=== PATIENT | male | born 1965 | race African-American/Black ===

== ENCOUNTER 2017-10-14 15:36 | Emergency (ER) | payer MEDICAID, OTHER ==
[~2017-10-14] VITALS: Ht 193 cm; Wt 95.3 kg
[2017-10-14] MEDS ORDERED: GLIPIZIDE5 MG ORAL (15:49)
[2017-10-14] MEDS ORDERED: blood thinner (15:49)
[2017-10-14] MEDS ORDERED: METOPROLOL TART25 MG ORAL (15:49)
[2017-10-14] MEDS ORDERED: METFORMIN HCL500 M1 ORAL (15:49)
[2017-10-14 15:54] VITALS: BP 172/95
--- NOTE | 2017-10-14 16:20 | Emergency Room Report ---
History of Present Illness General Chief Complaint: Skin Rash/Abscess Source: Patient Present Illness HPI 51-year-old male with diabetes presenting with right foot wound. Patient states that he had a callus that was there, he removed it because it was painful , and since then has had purulent drainage from the site. States that he is on glipizide and metformin for his diabetes only. Denies any fever chills Allergies: Coded Allergies: No Known Allergies (Unverified , 10/14/17) Patient History Past Medical History: see triage record Past Surgical History: none Pertinent Family History: none Reviewed Nursing Documentation: PMH: Agreed, PSxH: Agreed Nursing Documentation-PMH Past Medical History: No History, Except For Hx Hypertension: Yes Hx Diabetes: Yes Review of Systems All Other Systems: negative except mentioned in HPI Physical Exam Vital Signs Date Time Temp Pulse Resp B/P (MAP) Pulse Ox O2 Delivery O2 Flow Rate FiO2 10/14/17 15:44 98.2 88 18 172/95 98 Room Air 98.2 Sp02 EP Interpretation: reviewed, normal General Appearance: alert, GCS 15, non-toxic, mild distress Head: normocephalic, atraumatic Eyes: bilateral eye normal inspection, bilateral eye PERRL, bilateral eye EOMI ENT: normal ENT inspection, normal pharynx, normal voice, moist mucus membranes Neck: normal inspection, full range of motion, supple Respiratory: normal inspection, lungs clear, normal breath sounds, no respiratory distress, no retraction, no wheezing, speaking full sentences, chest symmetrical Cardiovascular #1: normal inspection, regular rate, rhythm, no edema, normal capillary refill Cardiovascular #2: 2+ radial (R), 2+ radial (L) Gastrointestinal: normal inspection, non tender, soft, non-distended, no guarding Genitourinary: no CVA tenderness Musculoskeletal: other - Sole of foot with thick callus, also with ulceration noted, draining yellowish fluid Neurologic: normal inspection, alert, oriented x3, responsive, motor strength/ tone normal, sensory intact, normal gait, speech normal Psychiatric: normal inspection, judgement/insight normal, memory normal Skin: normal inspection, normal color, no rash, warm/dry, well hydrated, normal turgor Medical Decision Making Diagnostic Impression: Primary Impression: Diabetic foot ulcer ER Course 51-year-old male with right foot wound DDX: Diabetic ulcer, infected, versus osteomyelitis No crepitus / pain out of proportion / rapid spreading for concern for nec fasc Plan: Labs and Antibiotics ER course: Patient received antibiotics. Remains nontoxic appearing. There has been no rapid spread of redness/swelling. lactate decreased pt appears well Disposition: dc home with pmd fu in 2 days without fail for wound recheck Please note that this Emergency Department Report was dictated using [employer] intern technology software, occasionally this can lead to erroneous entry secondary to interpretation by the dictation equipment. EKG Diagnostic Results EP Interpretation: Yes Rate: normal Rhythm: NSR ST Segments: No acute changes ASA given to patient: No Rhythm Strip EP Interpretation: Yes Rate: 77 Rhythm: NSR, no PVCs, no ectopy Chest X-ray CXR: Ordered: Yes 1 view Indication: Chest pain EP interpretation: Yes Interpretation: No consolidation, no effusion, no PTX, no acute cardiopulmonary disease Impression: No acute disease Electronically signed by Onofre Rowell MD Laboratory Tests Test 10/14/17 16:05 10/14/17 16:10 10/14/17 18:45 Urine Color [place] Urine Appearance Slightly cloudy Urine pH 5 (4.5-8.0) Urine Specific [place] 1.025 (1.005-1.035) Urine Protein 3+ (NEGATIVE) H Urine Glucose (UA) 4+ (NEGATIVE) H Urine Ketones 2+ (NEGATIVE) H Urine Occult Blood 2+ (NEGATIVE) H Urine Nitrite Negative (NEGATIVE) Urine Bilirubin 1+ (NEGATIVE) H Urine Ictotest Negative Urine Urobilinogen 4 MG/DL (0.0-1.0) H Urine Leukocyte Esterase 1+ (NEGATIVE) H Urine RBC 2-4 /HPF (0 - 0) H Urine WBC 2-4 /HPF (0 - 0) Urine Squamous Epithelial Cells None /LPF (NONE/OCC) Urine Amorphous Sediment Few /LPF (NONE) H Urine Bacteria Moderate /HPF (NONE) H White Blood Count 5.7 K/UL (4.8-10.8) Red Blood Count 4.43 M/UL (4.70-6.10) L Hemoglobin 15.2 G/DL (14.2-18.0) Hematocrit 44.5 % (42.0-52.0) Mean Corpuscular Volume 100 FL (80-99) H Mean Corpuscular Hemoglobin 34.2 PG (27.0-31.0) H Mean Corpuscular Hemoglobin Concent 34.1 G/DL (32.0-36.0) Red Cell Distribution Width 14.5 % (11.6-14.8) Platelet Count 232 K/UL (150-450) Mean Platelet Volume 7.9 FL (6.5-10.1) Neutrophils (%) (Auto) 56.9 % (45.0-75.0) Lymphocytes (%) (Auto) 28.8 % (20.0-45.0) Monocytes (%) (Auto) 9.8 % (1.0-10.0) Eosinophils (%) (Auto) 3.0 % (0.0-3.0) Basophils (%) (Auto) 1.5 % (0.0-2.0) Sodium Level 140 MMOL/L (136-145) Potassium Level 4.4 MMOL/L (3.5-5.1) Chloride Level 101 MMOL/L (98-107) Carbon Dioxide Level 27 MMOL/L (21-32) Anion Gap 12 mmol/L (5-15) Blood Urea Nitrogen 8 mg/dL (7-18) Creatinine 1.0 MG/DL (0.55-1.30) Estimate Glomerular Filtration Rate > 60 mL/min (>60) Glucose Level 277 MG/DL (74-106) H Lactic Acid Level 3.40 mmol/L (0.66-2.22) H 1.40 mmol/L (0.66-2.22) Calcium Level 9.7 MG/DL (8.5-10.1) Total Bilirubin 0.9 MG/DL (0.2-1.0) Aspartate Amino Transferase (AST) 30 U/L (15-37) Alanine Aminotransferase (ALT) 21 U/L (12-78) Alkaline Phosphatase 93 U/L (46-116) Pro-B-Type Natriuretic Peptide 88 pg/mL (0-125) Total Protein 7.8 G/DL (6.4-8.2) Albumin 3.6 G/DL (3.4-5.0) Globulin 4.2 g/dL Albumin/Globulin Ratio 0.9 (1.0-2.7) L Acetone Level Negative (NEGATIVE) Last Vital Signs Date Time Temp Pulse Resp B/P (MAP) Pulse Ox O2 Delivery O2 Flow Rate FiO2 10/14/17 15:44 98.2 88 18 172/95 98 Room Air 98.2 Disposition: HOME, SELF-CARE Condition: Improved Scripts Doxycycline Monohydrate* (DOXYCYCLINE MONOHYDRATE*) 100 Mg Capsule 100 MG ORAL Q12H for 7 Days, #14 CAP 0 Refills Prov: Onofre Rowell M.D. 10/14/17 Cephalexin* (KEFLEX*) 500 Mg Capsule 500 MG ORAL Q6H, #28 CAP 0 Refills Prov: Onofre Rowell M.D. 10/14/17 Onofre Rowell M.D. Oct 14, 2017 16:20
[2017-10-14 16:36] LABS: APPEARANCE,URINE SLIGHTLY CLOUDY; BILIRUBIN, URINE 1+ (NEGATIVE); GLUCOSE, URINE (UA) 4+ (NEGATIVE); KETONES,URINE 2+ (NEGATIVE); LEUKOCYTE ESTERASE ,URINE 1+ (NEGATIVE); NITRITE,URINE NEGATIVE (NEGATIVE); PH,URINE 5 (4.5-8.0); PROTEIN,URINE 3+ (NEGATIVE); UROBILINOGEN,URINE 4 MG/DL (0.0-1.0)
[2017-10-14 16:37] LABS: COLOR,URINE AMBER
[2017-10-14] MEDS: cefTRIAXone 1 GM in NS 55 ML IVPB ONE (16:37)
[2017-10-14 16:44] LABS: BASOPHILS % (AUTO) 1.5 % (0.0-2.0); HEMATOCRIT 44.5 % (42.0-52.0); HEMOGLOBIN 15.2 G/DL (14.2-18.0); LYMPHOCYTES % (AUTO) 28.8 % (20.0-45.0); MEAN CORPUSCULAR VOLUME 100 FL (80-99); MONOCYTES % (AUTO) 9.8 % (1.0-10.0); NEUTROPHILS % (AUTO) 56.9 % (45.0-75.0); PLATELET COUNT 232 K/UL (150-450); RED BLOOD COUNT 4.43 M/UL (4.70-6.10); RED CELL DISTRIBUTION WIDTH 14.5 % (11.6-14.8); WHITE BLOOD COUNT 5.7 K/UL (4.8-10.8)
[2017-10-14 16:51] LABS: ANION GAP 12 mmol/L (5-15); BLOOD UREA NITROGEN 8 mg/dL (7-18); CALCIUM 9.7 MG/DL (8.5-10.1); CARBON DIOXIDE 27 MMOL/L (21-32); CHLORIDE 101 MMOL/L (98-107); POTASSIUM 4.4 MMOL/L (3.5-5.1); SODIUM 140 MMOL/L (136-145)
[2017-10-14 17:03] LABS: ALANINE AMINOTRANSFERASE 21 U/L (12-78); ALBUMIN 3.6 G/DL (3.4-5.0); ALBUMIN/GLOBULIN RATIO 0.9 (1.0-2.7); ALKALINE PHOSPHATASE 93 U/L (46-116); ASPARTATE AMINO TRANSFERASE 30 U/L (15-37); BILIRUBIN,TOTAL 0.9 MG/DL (0.2-1.0)
--- NOTE | 2017-10-14 17:04 | Diagnostic Imaging Report ---
Indication: Reason For Exam: PAIN Technique: One view of the chest Comparison: none Findings: Lungs and pleural spaces are clear. Heart size is normal Impression: No acute process
[2017-10-14] MEDS ORDERED: Doxycycline 100mg Inj IV ONE (17:22)
[2017-10-14] MEDS: Doxycycline Hyclate 100 MG in D5W 110 ML IVPB SCH (17:26)
[2017-10-14] MEDS ORDERED: KEFLEX500 MG ORAL (17:37)
[2017-10-14] MEDS ORDERED: DOXYCYCLINE MO100 MG ORAL (17:37)
[2017-10-14 18:53] VITALS: BP 173/98
[2017-10-14 20:05] VITALS: BP 167/92
[2017-10-14 20:08] VITALS: BP 167/92
--- NOTE | 2017-10-15 10:44 | Diagnostic Imaging Report ---
Indications: Plantar surface wound, diabetic Technique: 3 views of the foot Comparison: None Findings: No acute fractures. No dislocations. Joint spaces are preserved. No radiopaque foreign body. Normal mineralization. Air is seen within the superficial soft tissues plantar to the first metatarsophalangeal joint, only appreciable on the lateral view. No definite underlying bony destruction, osteolytic process, or abnormal periosteal reaction. There is hammertoe deformity of the second through fifth digits and mild metatarsus adductus. There are vascular calcifications Impression: No acute bony trauma Evidence of plantar soft tissue ulcer. No plain radiographic evidence of osteomyelitis. Note, however, limited sensitivity plain radiographs for such. If there is high clinical suspicion, further evaluation with bone scan or MRI should be considered
--- NOTE | 2017-10-19 18:54 | Cardiology Report ---
APPROVED REPORT EKG Measurement Heart [id number] Normal sinus rhythm Septal infarct, age undetermined Abnormal ECG
== END 2017-10-14 20:08 | disposition home or self-care (01) ==
LOC: EMR 17:47
DX: E11.621 Type 2 diabetes mellitus with foot ulcer (principal); L97.519 Non-pressure chronic ulcer of other part of right foot with unspecified severity; I10 Essential (primary) hypertension
CPT/HCPCS: 36415; 71045; 73630; 80053; 81003; 82009; 83605; 83880; 85025; 87040; 87086; 93005; 96361; 96374; 99284; J0696; J3490

== ENCOUNTER 2017-11-20 16:11 | Inpatient (IN) | payer OTHER ==
[~2017-11-20] VITALS: Ht 193 cm; Wt 84.4 kg
[~2017-11-20 16:11] MED LIST: DOXYCYCLINE MO100 MG ORAL; GLIPIZIDE5 MG ORAL; KEFLEX500 MG ORAL; METFORMIN HCL500 M1 ORAL; METOPROLOL TART25 MG ORAL; blood thinner
[2017-11-20] MEDS ORDERED: Vancomycin 1 GM in D5W 275 ML IVPB ONE (16:45)
[2017-11-20] MEDS ORDERED: Piperacillin/Tazobactam 3.375 GM in NS 110 ML IVPB ONE (16:45)
--- NOTE | 2017-11-20 16:54 | Emergency Room Report ---
History of Present Illness General Chief Complaint: Wound Recheck/Suture Removal Source: Patient Present Illness HPI Patient presents emergency department today complaining of right foot pain and discharge. Patient states that he has a history of diabetes and chronic right foot ulcer. He has been treated multiple times. In the past has healed. But now it burst open again and appears to be draining foul-smelling fluid. He denies any fever chest pain shortness of breath. No trauma was noted. Symptoms noted to be severe.No other modifying factors. No other associated signs and symptoms. No other complaints were noted. Allergies: Coded Allergies: No Known Allergies (Unverified , 10/14/17) Patient History Past Medical History: DM, HTN Past Surgical History: none Pertinent Family History: none Social History: Denies: smoking, alcohol use, drug use Reviewed Nursing Documentation: PMH: Agreed; PSxH: Agreed Nursing Documentation-PMH Hx Hypertension: Yes Hx Diabetes: Yes Review of Systems All Other Systems: negative except mentioned in HPI Physical Exam Vital Signs Date Time Temp Pulse Resp B/P (MAP) Pulse Ox O2 Delivery O2 Flow Rate FiO2 11/20/17 16:22 98.0 82 16 137/81 100 Room Air 98.1 Sp02 EP Interpretation: reviewed, normal General Appearance: normal inspection, well appearing, no apparent distress, alert Head: atraumatic Eyes: bilateral eye normal inspection ENT: normal ENT inspection, hearing grossly normal, normal voice Neck: normal inspection, full range of motion, supple, no bony tend Respiratory: normal inspection, lungs clear, normal breath sounds, no respiratory distress, no retraction, no wheezing Cardiovascular #1: regular rate, rhythm, no edema Gastrointestinal: normal inspection, normal bowel sounds, non tender, soft, no guarding, no hernia Genitourinary: no CVA tenderness Musculoskeletal: normal range of motion, inflammation - Right foot, at the sole with discharge Neurologic: normal inspection, alert, responsive, speech normal Psychiatric: normal inspection, judgement/insight normal, mood/affect normal Skin: no rash, other - Right foot sole cellulitis and discharge Medical Decision Making Diagnostic Impression: Primary Impression: Diabetic foot ulcer Qualified Codes: E11.621 - Type 2 diabetes mellitus with foot ulcer; L97.413 - Non-pressure chronic ulcer of right heel and midfoot with necrosis of muscle Additional Impressions: Cellulitis Qualified Codes: L03.115 - Cellulitis of right lower limb Osteomyelitis Qualified Codes: M86.171 - Other acute osteomyelitis, right ankle and foot Abscess ER Course Patient presents emergency department today complaining of right foot pain. Differential considerations include abscess, cellulitis, osteomyelitis, cellulitis just to name a few.Given the severity of the patient's presentation I felt this is a highly complex patient. This patient required extensive workup. Patient's exam is concerning for osteomyelitis cellulitis a minimal nursing abscess. The patient required admission for IV antibiotics. This case was discussed with admitting physician. Patient will be admitted to [facility] for further treatment. Case discussed with Dr. Diego Dave was on panel admission. Labs Test 11/20/17 17:05 White Blood Count 6.8 K/UL (4.8-10.8) Red Blood Count 4.58 M/UL (4.70-6.10) Hemoglobin 15.7 G/DL (14.2-18.0) Hematocrit 45.6 % (42.0-52.0) Mean Corpuscular Volume 100 FL (80-99) Mean Corpuscular Hemoglobin 34.3 PG (27.0-31.0) Mean Corpuscular Hemoglobin Concent 34.5 G/DL (32.0-36.0) Red Cell Distribution Width 12.8 % (11.6-14.8) Platelet Count 253 K/UL (150-450) Mean Platelet Volume 8.4 FL (6.5-10.1) Neutrophils (%) (Auto) 49.1 % (45.0-75.0) Lymphocytes (%) (Auto) 36.0 % (20.0-45.0) Monocytes (%) (Auto) 8.9 % (1.0-10.0) Eosinophils (%) (Auto) 4.2 % (0.0-3.0) Basophils (%) (Auto) 1.8 % (0.0-2.0) Erythrocyte Sedimentation Rate 21 MM/HR (0-20) Prothrombin Time 9.4 SEC (9.30-11.50) Prothromb Time International Ratio 0.9 (0.9-1.1) Activated Partial Thromboplast Time 26 SEC (23-33) Sodium Level 134 MMOL/L (136-145) Potassium Level 4.9 MMOL/L (3.5-5.1) Chloride Level 97 MMOL/L (98-107) Carbon Dioxide Level 26 MMOL/L (21-32) Anion Gap 11 mmol/L (5-15) Blood Urea Nitrogen 17 mg/dL (7-18) Creatinine 1.5 MG/DL (0.55-1.30) Estimat Glomerular Filtration Rate 59.1 mL/min (>60) Glucose Level 459 MG/DL (74-106) Calcium Level 10.3 MG/DL (8.5-10.1) Total Bilirubin 0.7 MG/DL (0.2-1.0) Aspartate Amino Transf (AST/SGOT) 47 U/L (15-37) Alanine Aminotransferase (ALT/SGPT) 41 U/L (12-78) Alkaline Phosphatase 90 U/L (46-116) Total Protein 8.5 G/DL (6.4-8.2) Albumin 3.8 G/DL (3.4-5.0) Globulin 4.7 g/dL Albumin/Globulin Ratio 0.8 (1.0-2.7) Other X-Ray Diagnostic Results Other X-Ray Diagnostic Results : X-Ray ordered: Right foot x-ray # of Views/Limited Vs Complete: 3 View Indication: Pain EP Interpretation: Yes Interpretation: no dislocation, no soft tissue swelling, no fractures Impression: No acute disease Electronically Signed by: Dr. Gwyn Goldsmith M.D. Last Vital Signs Date Time Temp Pulse Resp B/P (MAP) Pulse Ox O2 Delivery O2 Flow Rate FiO2 11/20/17 16:22 98.0 82 16 137/81 100 Room Air 98.1 Status: improved Disposition: ADMITTED INPATIENT Condition: Serious GWYN GOLDSMITH M.D. Nov 20, 2017 16:54
[2017-11-20 17:26] LABS: BASOPHILS % (AUTO) 1.8 % (0.0-2.0); EOSINOPHILS % (AUTO) 4.2 % (0.0-3.0); HEMATOCRIT 45.6 % (42.0-52.0); HEMOGLOBIN 15.7 G/DL (14.2-18.0); MEAN CORPUSCULAR VOLUME 100 FL (80-99); MONOCYTES % (AUTO) 8.9 % (1.0-10.0); NEUTROPHILS % (AUTO) 49.1 % (45.0-75.0); PLATELET COUNT 253 K/UL (150-450); RED BLOOD COUNT 4.58 M/UL (4.70-6.10); RED CELL DISTRIBUTION WIDTH 12.8 % (11.6-14.8); WHITE BLOOD COUNT 6.8 K/UL (4.8-10.8)
[2017-11-20 17:35] LABS: ANION GAP 11 mmol/L (5-15); BLOOD UREA NITROGEN 17 mg/dL (7-18); CALCIUM 10.3 MG/DL (8.5-10.1); CARBON DIOXIDE 26 MMOL/L (21-32); CHLORIDE 97 MMOL/L (98-107); CREATININE 1.5 MG/DL (0.55-1.30); POTASSIUM 4.9 MMOL/L (3.5-5.1); SODIUM 134 MMOL/L (136-145)
[2017-11-20 17:40] LABS: ALANINE AMINOTRANSFERASE 41 U/L (12-78); ALBUMIN 3.8 G/DL (3.4-5.0); ALBUMIN/GLOBULIN RATIO 0.8 (1.0-2.7); ALKALINE PHOSPHATASE 90 U/L (46-116); ASPARTATE AMINO TRANSFERASE 47 U/L (15-37); BILIRUBIN,TOTAL 0.7 MG/DL (0.2-1.0); INR 0.9 (0.9-1.1)
[2017-11-20] MEDS ORDERED: METOPROLOL TART50 MG ORAL (18:05)
[2017-11-20] MEDS ORDERED: GLUCOTROL10 MG ORAL (18:05)
[2017-11-20] MEDS ORDERED: IBUPROFEN600 MG ORAL (18:07)
[2017-11-20 19:01] VITALS: BP 138/83
[2017-11-20 20:10] VITALS: BP 141/85
[2017-11-21] VITALS: BP 147/90
[2017-11-21 04:00] VITALS: BP 136/81
[2017-11-21] MEDS: metFORMIN 500mg tab ORAL SCH ×2 (06:19→16:42)
[2017-11-21] MEDS: NovoLOG Insulin Flexpen SUBQ SCH ×6 (06:20→20:41)
[2017-11-21] MEDS ORDERED: GlipiZIDE 10mg tab ORAL SCH (06:30)
[2017-11-21 07:14] LABS: ANION GAP 10 mmol/L (5-15); BLOOD UREA NITROGEN 15 mg/dL (7-18); CALCIUM 9.7 MG/DL (8.5-10.1); CARBON DIOXIDE 26 MMOL/L (21-32); CHLORIDE 98 MMOL/L (98-107); CREATININE 1.3 MG/DL (0.55-1.30); POTASSIUM 3.9 MMOL/L (3.5-5.1); SODIUM 134 MMOL/L (136-145)
[2017-11-21 07:24] LABS: BASOPHILS % (AUTO) 1.8 % (0.0-2.0); HEMATOCRIT 39.4 % (42.0-52.0); HEMOGLOBIN 14.3 G/DL (14.2-18.0); LYMPHOCYTES % (AUTO) 38.9 % (20.0-45.0); MEAN CORPUSCULAR VOLUME 98 FL (80-99); MONOCYTES % (AUTO) 10.4 % (1.0-10.0); NEUTROPHILS % (AUTO) 43.9 % (45.0-75.0); PLATELET COUNT 242 K/UL (150-450); RED BLOOD COUNT 4.01 M/UL (4.70-6.10); RED CELL DISTRIBUTION WIDTH 12.5 % (11.6-14.8); WHITE BLOOD COUNT 5.3 K/UL (4.8-10.8)
[2017-11-21 08:00] VITALS: BP 135/79
--- NOTE | 2017-11-21 08:40 | Consultation ---
Consult Note Assessment/Plan A/ 1) Abscess right foot 2) Cellulitis right foot 3) DM with neuropathy P/ 1) Patient was advised of his condition and possible bone infection. 2) MRI ordered to evaluate for osteo 3) Wound care ordered- pack wound daily 4) Cont abx per ID 5) Wound cultures pending 6) Will follow Thank you Norris Sampson DPM Nov 21, 2017 08:40
--- NOTE | 2017-11-21 09:30 | Diagnostic Imaging Report ---
Indication: Right foot pain Technique: Right foot 3 views Comparison: None Findings: There is no radiographically evident fracture or dislocation. Forefoot plantar ulcer and adjacent gas are noted. Vascular calcifications are seen. Impression: Plantar forefoot ulcer. No plain film evidence of osteomyelitis. MRI may be obtained for more sensitive evaluation.
[2017-11-21] MEDS: Metoprolol Tartrate 50mg tab ORAL SCH ×2 (09:35→19:28)
[2017-11-21] MEDS: Heparin 5000 units/ml inj SUBQ SCH ×2 (09:36→20:42)
[2017-11-21] MEDS ORDERED: Piperacillin/Tazobactam 3.375 GM in D5W 110 ML IVPB SCH (10:00)
--- NOTE | 2017-11-21 10:21 | General Progress Note ---
Assessment/Plan Problem List: (1) Diabetes mellitus out of control ICD Codes: E11.65 - Type 2 diabetes mellitus with hyperglycemia SNOMED: 57903426, 313275817 (2) Osteomyelitis ICD Codes: M86.9 - Osteomyelitis, unspecified SNOMED: 88643042 Qualifiers: Qualified Codes: M86.171 - Other acute osteomyelitis, right ankle and foot (3) Cellulitis ICD Codes: L03.90 - Cellulitis, unspecified SNOMED: 722594508 Qualifiers: Qualified Codes: L03.115 - Cellulitis of right lower limb (4) Diabetic foot ulcer ICD Codes: E11.621 - Type 2 diabetes mellitus with foot ulcer; L97.509 - Non- pressure chronic ulcer of other part of unspecified foot with unspecified severity SNOMED: 610526617, [id number] Qualifiers: Qualified Codes: E11.621 - Type 2 diabetes mellitus with foot ulcer; L97.413 - Non-pressure chronic ulcer of right heel and midfoot with necrosis of muscle Assessment/Plan continue Metformin DC Glipizide add Levemir 24 units daily add Novolog 8 units ac tid continue NISS Subjective Allergies: Coded Allergies: No Known Allergies (Unverified , 10/14/17) All Systems: reviewed and negative except above Subjective Patient presents emergency department today complaining of right foot pain and discharge. Patient states that he has a history of diabetes and chronic right foot ulcer. He has been treated multiple times. In the past has healed. But now it burst open again and appears to be draining foul-smelling fluid. He denies any fever chest pain shortness of breath. No trauma was noted. Symptoms noted to be severe.No other modifying factors. No other associated signs and symptoms. No other complaints were noted Objective Last 24 Hour Vital Signs Date Time Temp Pulse Resp B/P (MAP) Pulse Ox O2 Delivery O2 Flow Rate FiO2 11/21/17 09:35 89 135/79 11/21/17 08:00 98.3 89 19 135/79 97 Room Air 98.3 11/21/17 04:00 98.3 91 21 136/81 100 98.3 11/21/17 00:00 98.2 82 21 147/90 100 98.2 11/20/17 20:10 98.1 79 18 141/85 100 Room Air 98.1 11/20/17 20:05 98.0 74 14 138/83 100 Room Air 98.1 11/20/17 19:01 74 14 138/83 100 Room Air 11/20/17 16:22 98.0 82 16 137/81 100 Room Air 98.1 Intake and Output 11/20/17 11/21/17 19:00 07:00 Intake Total 480 ml Output Total 350 ml Balance 130 ml Intake IV Total 480 ml Output Urine Total 350 ml # Voids 2 Laboratory Tests 11/20/17 17:05: White Blood Count 6.8, Red Blood Count 4.58L, Hemoglobin 15.7, Hematocrit 45.6, Mean Corpuscular Volume 100H, Mean Corpuscular Hemoglobin 34.3H, Mean Corpuscular Hemoglobin Concent 34.5, Red Cell Distribution Width 12.8, Platelet Count 253, Mean Platelet Volume 8.4, Neutrophils (%) (Auto) 49.1, Lymphocytes (% ) (Auto) 36.0, Monocytes (%) (Auto) 8.9, Eosinophils (%) (Auto) 4.2H, Basophils (%) (Auto) 1.8, Erythrocyte Sedimentation Rate 21H, Prothrombin Time 9.4, Prothromb Time International Ratio 0.9, Activated Partial Thromboplast Time 26, Sodium Level 134L, Potassium Level 4.9, Chloride Level 97L, Carbon Dioxide Level 26, Anion Gap 11, Blood Urea Nitrogen 17, Creatinine 1.5H, Estimat Glomerular Filtration Rate 59.1, Glucose Level 459H, Calcium Level 10.3H, Total Bilirubin 0.7, Aspartate Amino Transf (AST/SGOT) 47H, Alanine Aminotransferase ( ALT/SGPT) 41, Alkaline Phosphatase 90, Total Protein 8.5H, Albumin 3.8, Globulin 4.7, Albumin/Globulin Ratio 0.8L 11/21/17 05:25: White Blood Count 5.3, Red Blood Count 4.01L, Hemoglobin 14.3, Hematocrit 39.4L , Mean Corpuscular Volume 98, Mean Corpuscular Hemoglobin 35.7H, Mean Corpuscular Hemoglobin Concent 36.3H, Red Cell Distribution Width 12.5, Platelet Count 242, Mean Platelet Volume 9.3, Neutrophils (%) (Auto) 43.9L, Lymphocytes (%) (Auto) 38.9, Monocytes (%) (Auto) 10.4H, Eosinophils (%) (Auto) 5.0H, Basophils (%) (Auto) 1.8, Sodium Level 134L, Potassium Level 3.9, Chloride Level 98, Carbon Dioxide Level 26, Anion Gap 10, Blood Urea Nitrogen 15 , Creatinine 1.3, Estimat Glomerular Filtration Rate > 60, Glucose Level 356#H, Calcium Level 9.7 Height (Feet): 6 Height (Inches): 4.00 Weight (Pounds): 186 General Appearance: no apparent distress Neck: non-tender Cardiovascular: normal rate Respiratory/Chest: lungs clear Abdomen: normal bowel sounds Objective Item Value Date Time Bedside Blood Glucose 338 mg/dl H 11/21/17 0620 Current Medications Medications (Trade) Dose Ordered Sig/Fiorella Route PRN Reason Start Time Stop Time Status Last Admin Dose Admin Dextrose (Dextrose 50%) 25 ml STAT PRN IV Hypoglycemia 11/20/17 22:15 12/20/17 22:14 Dextrose (Dextrose 50%) 50 ml STAT PRN IV Hypoglycemia 11/20/17 22:15 12/20/17 22:14 Glipizide (Glucotrol) 10 mg BIAC ORAL 11/21/17 06:30 12/21/17 06:29 11/21/17 06:19 Heparin Sodium (Porcine) (Heparin 5000 units/ml) 5,000 units EVERY 12 HOURS SUBQ 11/21/17 09:00 12/21/17 08:59 11/21/17 09:36 Ibuprofen (Advil) 800 mg BID PRN ORAL For Pain 11/20/17 22:15 12/20/17 22:14 11/20/17 22:47 Insulin Aspart (NovoLOG) BEFORE MEALS AND HS SUBQ 11/21/17 06:30 12/21/17 06:29 11/21/17 06:20 Metformin HCl (Glucophage) 500 mg BIAC ORAL 11/21/17 06:30 12/21/17 06:29 11/21/17 06:19 Metoprolol Tartrate (Lopressor) 50 mg BID ORAL 11/21/17 09:00 12/21/17 08:59 11/21/17 09:35 Morphine Sulfate (Morphine Sulfate) 2 mg Q4H PRN IVP pain 11/20/17 22:30 11/27/17 22:29 Piperacillin Sod/ Tazobactam Sod 3.375 gm/Dextrose 110 ml @ 27.5 mls/hr EVERY 8 HOURS IVPB 11/21/17 14:00 11/28/17 13:59 Sodium Chloride 1,000 ml @ 60 mls/hr [id number] IV 11/20/17 22:15 12/20/17 22:14 11/20/17 22:37 Vancomycin HCl (Vanco rx to dose) 1 ea DAILY PRN MISC Per rx protocol 11/21/17 10:00 12/21/17 09:59 Vancomycin HCl/ Dextrose 250 ml @ 166.667 mls/hr Q12H IVPB 11/21/17 11:00 11/26/17 10:59 MIS MUNOZ Nov 21, 2017 10:21
[2017-11-21] MEDS: Vancomycin 1250mg/D5W 250ml IVPB SCH ×2 (11:12→22:44)
[2017-11-21] MEDS: Levemir Flexpen SUBQ SCH (11:14)
[2017-11-21 12:00] VITALS: BP 135/81
[2017-11-21] MEDS: Piperacillin/Tazobactam 3.375 GM in D5W 110 ML IVPB SCH ×2 (13:48→20:43)
--- NOTE | 2017-11-21 14:30 | History and Physical Report ---
DATE OF ADMISSION: 11/20/2017 APPROXIMATE TIME SEEN: At 8 a.m. CONSULTANTS: 1. Oli Raymond M.D. 2. Norris Anguiano D.P.M. 3. Tadeo Clement M.D. CHIEF COMPLAINT: Diabetic foot ulcer. BRIEF HISTORY: This is a 52-year-old male, who lives at home with history of diabetes. He apparently a month ago developed right foot ulcer, was seen by doctor, and the wound got worse. The patient came to [facility] last night, diagnosed of diabetic foot ulcer, and admitted to medical floor for further treatment. Currently, calm in bed, no complaint, no chest pain. No nausea, vomiting, or diarrhea. PAST MEDICAL HISTORY: Includes diabetes. PAST SURGICAL HISTORY: Possible left leg surgery. ALLERGIES: Denies. MEDICATIONS: Include heparin, Lopressor, NovoLog, Glucotrol, Glucophage, morphine, vancomycin, Zosyn. SOCIAL HISTORY: Positive smoking. Positive alcohol. No intravenous drug abuse. FAMILY HISTORY: Noncontributory. PHYSICAL EXAMINATION: GENERAL: Calm in bed, oriented x3, in no acute distress. VITAL SIGNS: Temperature 98, pulse 91, respiratory rate 21, blood pressure 136/81. CARDIOVASCULAR: No murmur. LUNGS: Distant and clear. ABDOMEN: Bowel sounds positive. Nontender, nondistended. EXTREMITIES: Show no cyanosis, clubbing, or edema. Right foot slightly disheveled, but gauze dressing is clean and dry. NEUROLOGIC: The patient moves all extremities, slightly weak. LABORATORY AND DIAGNOSTIC DATA: Labs at this time show CBC is normal. BMP shows sodium 134, glucose 356, otherwise normal. INR 0.9, PTT 26. ASSESSMENT: 1. Diabetic foot ulcer on the right. 2. History of diabetes. PLAN: 1. Continue pre-admit medications. 2. Wound care. 3. Antibiotics per Infectious Disease. 4. Blood sugar control. 5. Pain control. 6. Resume home medications. 7. OT, PT, dietary evaluation. 8. CBC and BMP in the morning. Diego Dave D.O. DR: Genesis JOB#: [id number] CC:
[2017-11-21 16:00] VITALS: BP 142/76
[2017-11-21] MEDS: Morphine Sulfate 4mg/ml Inj IVP PRN (16:44)
--- NOTE | 2017-11-21 18:30 | Consultation ---
DATE OF CONSULTATION: 11/21/2017 REQUESTING PHYSICIAN: Diego Dave D.O. CONSULTING PHYSICIAN: Norris Anguiano D.P.M. REASON FOR CONSULTATION: Cellulitis and abscess right foot in the presence of diabetes mellitus. HISTORY OF PRESENT ILLNESS: The patient is a 52-year-old male, who was admitted to [facility] on 11/20/2017 for above-noted diagnoses. The patient states that he has had a history of wound on the right foot for approximately a month. He notes that it was improving, but then over the past couple of days, has been getting worse. He currently denies any pain, fever, chills, nausea, or vomiting. 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 PAST MEDICAL HISTORY: Significant for diabetes mellitus and hypertension. MEDICATIONS: Per SEP. ALLERGIES: He has no known drug allergies. SOCIAL HISTORY: Noncontributory. FAMILY HISTORY: Noncontributory. REVIEW OF SYSTEMS: HEENT: The patient denies any headaches, blurred vision, or ringing in the ears. CARDIORESPIRATORY: The patient denies any chest pain or shortness of breath. GENITOURINARY: The patient denies any urgency, frequency, burning upon urination, or hematuria. GASTROINTESTINAL: The patient denies any constipation, diarrhea, or blood in stool. PHYSICAL EXAMINATION: VITAL SIGNS: Temperature is 98.3 degrees, pulse is 91, respiration rate is 21, blood pressure is 136/81, and saturating 100% on room air. EXTREMITIES: Lower extremity physical exam, vascular, palpable pedal pulses noted bilaterally. Feet are equally warm. There is 1+ pitting edema noted on the right lower extremity. DERMATOLOGICAL: Left foot is unremarkable. Skin is intact. Right foot, there is a full-thickness ulceration noted on the plantar aspect of the right foot approximately in the second and third metatarsal head region. There is active drainage noted from the site. There is no malodor. Wound does not probe to bone. It does not appear to extend dorsally. NEUROLOGICAL: Protective threshold is absent. MUSCULOSKELETAL: He has got 4/5 muscle strength noted in anterolateral and posterior muscle groups of bilateral lower extremities. The patient is ambulatory. LABORATORY DATA: White blood cell count is 5.3, hemoglobin and hematocrit is 14.3 and 39.4, and platelet count is 242,000. Sedimentation rate is 21. Glucose is 356. Albumin is 3.8. BUN is 15, creatinine is 1.3. Potassium is 3.9. INR is 0.9. No lower extremity imaging is noted on this admission. ASSESSMENT: 1. Abscess, right foot. 2. Cellulitis, right foot. 3. Diabetes with neuropathy. PLAN: 1. The patient was advised of this condition and possible wound infection. 2. MRI ordered to evaluate for osteomyelitis. 3. Wound care was ordered consisting of cleansing the wound with normal saline, packing with quarter-inch packing, and covering with dry dressing daily. 4. Continue antibiotics per Infectious Disease. 5. Wound cultures are pending. 6. We will follow this patient. Thank you for the courtesy of this consultation, Dr. Dave. Norris Anguiano D.P.M. DR: Montez JOB#: [id number] CC:
[2017-11-21 20:00] VITALS: BP 150/90
--- NOTE | 2017-11-21 21:54 | Consultation ---
Consult Note Assessment/Plan [id number] Tadeo Clement MD Nov 21, 2017 21:54
[2017-11-22] VITALS: BP 160/81
--- NOTE | 2017-11-22 00:15 | Consultation ---
DATE OF CONSULTATION: INFECTIOUS DISEASE CONSULTATION CONSULTING PHYSICIAN: Tadeo Clement M.D. REFERRING PHYSICIAN: Diego Dave D.O. REASON FOR CONSULTATION: Examination of the patient for right foot cellulitis, wound infection, rule out osteomyelitis. HISTORY OF PRESENT ILLNESS: The patient is a 52-year-old male with multiple medical problems, who was admitted to this medical center because of worsening of the right plantar wound. The patient is sick for a few days prior to admission. This wound developed about a month ago. The patient and his family followed with the podiatry and he was getting better, but now it starts to worsen. The patient gave history of purulent discharge. The patient has been seen by production painter. The patient's wound was cleaned and packed. MR has been ordered. An infectious disease consultation has been requested for further evaluation of the patient and antibiotic management. PAST MEDICAL HISTORY: 1. Hypertension. 2. Diabetes. 3. History of left leg DVT. ALLERGIES: No known drug allergies. SOCIAL HISTORY: Ex-smoker and ex-alcohol abuser. No history of IV drug abuse. FAMILY HISTORY: Not contributing. ALLERGIES: No known drug allergies. MEDICATIONS: The patient has IV Zosyn and vancomycin. PHYSICAL EXAMINATION: VITAL SIGNS: Temperature 97.4, pulse 86, respiratory rate 18, and blood pressure 150/90. HEENT: No pale conjunctivae. No icterus. NECK: No lymphadenopathy. CHEST: Clear. HEART: S1-S2. ABDOMEN: Soft. EXTREMITIES: The patient has a wound on the plantar aspect of the foot that has been packed. No significant tenderness at the time of my exam. NEUROLOGIC: Awake and alert. LABORATORY AND DIAGNOSTIC DATA: White blood cells 5, hemoglobin 14, platelet 242,000. UA unremarkable. BUN 15, creatinine 1.3. ALT, AST, and alkaline phosphatase are unremarkable. Wound culture is pending. MRI of the foot is pending. ASSESSMENT: 1. The patient is a 52-year-old male with multiple medical problems, who has right plantar surface wound/infection, rule out osteomyelitis. 2. Afebrile. 3. Normal white blood cells. 4. History of HIV and hepatitis screening negative 6 months ago (as per patient). PLAN: 1. We will continue the patient on IV vancomycin and Zosyn. 2. Monitor CBC. 3. Monitor BMP. 4. Monitor wound culture. 5. MRI of the right foot pending. 6. We will follow up with history recommendations. 7. Based on the patient's clinical course and labs, we will do further recommendation. Thank you, Dr. Diego Dave, for allowing me to participate in the care of this patient. I will follow the patient with you during this hospitalization. Tadeo Clement M.D. DR: AC JOB#: [id number] CC:
[2017-11-22 04:00] VITALS: BP 147/88
[2017-11-22] MEDS: metFORMIN 500mg tab ORAL SCH ×2 (06:24→17:11)
[2017-11-22] MEDS: NovoLOG Insulin Flexpen SUBQ SCH ×8 (06:26→20:48)
[2017-11-22] MEDS: Piperacillin/Tazobactam 3.375 GM in D5W 110 ML IVPB SCH ×3 (06:31→21:21)
[2017-11-22 08:00] VITALS: BP 156/80
[2017-11-22 08:39] LABS: BASOPHILS % (AUTO) 1.7 % (0.0-2.0); EOSINOPHILS % (AUTO) 4.7 % (0.0-3.0); HEMATOCRIT 40.5 % (42.0-52.0); HEMOGLOBIN 14.8 G/DL (14.2-18.0); LYMPHOCYTES % (AUTO) 41.6 % (20.0-45.0); MEAN CORPUSCULAR VOLUME 99 FL (80-99); MONOCYTES % (AUTO) 10.5 % (1.0-10.0); NEUTROPHILS % (AUTO) 41.4 % (45.0-75.0); PLATELET COUNT 250 K/UL (150-450); RED BLOOD COUNT 4.11 M/UL (4.70-6.10); RED CELL DISTRIBUTION WIDTH 12.4 % (11.6-14.8); WHITE BLOOD COUNT 5.1 K/UL (4.8-10.8)
[2017-11-22 09:33] LABS: ANION GAP 12 mmol/L (5-15); BLOOD UREA NITROGEN 12 mg/dL (7-18); CALCIUM 9.6 MG/DL (8.5-10.1); CARBON DIOXIDE 24 MMOL/L (21-32); CHLORIDE 99 MMOL/L (98-107); CREATININE 1.1 MG/DL (0.55-1.30); POTASSIUM 3.5 MMOL/L (3.5-5.1); SODIUM 135 MMOL/L (136-145)
[2017-11-22] MEDS: Metoprolol Tartrate 50mg tab ORAL SCH ×2 (09:51→18:02)
[2017-11-22] MEDS: Heparin 5000 units/ml inj SUBQ SCH ×2 (09:52→20:19)
[2017-11-22] MEDS: Levemir Flexpen SUBQ SCH (09:53)
[2017-11-22 12:00] VITALS: BP 136/73
[2017-11-22] MEDS: Vancomycin 1250mg/D5W 250ml IVPB SCH (12:00)
--- NOTE | 2017-11-22 12:28 | Diagnostic Imaging Report ---
Indication: Open wound ball of right foot Technique: Sagittal, coronal, and axial T 1 fast spin echo and fast spin echo STIR images of the right forefoot Comparison: There is a plate radiographs 11/20/2017 Findings: A marker denotes location of a soft tissue ulcer at the plantar aspect of the foot near the second metatarsophalangeal abnormal STIR and T1 signal are seen within the second middle phalanx. No other marrow signal abnormality demonstrated. There is considerable focal high T2 signal which is very superficial in the region and slightly lateral to the marker. Within this is an area of signal void. Significance of this is uncertain, could represent a discrete focus of gas. The focal signal abnormality measures approximately 3 cm in length, 2.6 cm AP, and 0.8 cm thick. There is also more generalized edema without discrete fluid collection of the subcutaneous fat, primarily in the dorsum of the forefoot, but also surrounding the bases of the phalanges and the deep compartment surrounding the metatarsals. Impression: Abnormal STIR and T1 signal within the second middle phalanx, suspicious for osteomyelitis Apparent focal fluid collection, very superficial, near the marker denoting a soft tissue ulcer. This is on the plantar surface near the second and third metatarsophalangeal joints, could represent a blister. This could also just represent fluid external to the patient. Is abnormality should be clinically apparent and correlation with clinical findings is recommended More generalized edema, as described, could represent cellulitis or be hemodynamic in nature
--- NOTE | 2017-11-22 12:33 | General Progress Note ---
Assessment/Plan Problem List: (1) Diabetic foot ulcer ICD Codes: E11.621 - Type 2 diabetes mellitus with foot ulcer; L97.509 - Non- pressure chronic ulcer of other part of unspecified foot with unspecified severity SNOMED: 034649743, [id number] Qualifiers: Qualified Codes: E11.621 - Type 2 diabetes mellitus with foot ulcer; L97.413 - Non-pressure chronic ulcer of right heel and midfoot with necrosis of muscle (2) Diabetes mellitus out of control ICD Codes: E11.65 - Type 2 diabetes mellitus with hyperglycemia SNOMED: 39650754, 185271682 Status: stable, progressing, tolerating diet Assessment/Plan bs pain control abx wound care cbc bmp am Subjective Constitutional: Reports: weakness Allergies: Coded Allergies: No Known Allergies (Unverified , 10/14/17) All Systems: reviewed and negative except above Subjective eating calm Objective Last 24 Hour Vital Signs Date Time Temp Pulse Resp B/P (MAP) Pulse Ox O2 Delivery O2 Flow Rate FiO2 11/22/17 12:00 97.7 74 21 136/73 98 Room Air 97.7 11/22/17 09:51 71 142/88 11/22/17 08:00 97.9 76 21 156/80 99 Room Air 97.9 11/22/17 04:00 98.0 75 21 147/88 99 98.0 11/22/17 00:00 98.6 64 21 160/81 100 98.6 11/21/17 20:00 97.4 75 21 150/90 100 97.4 11/21/17 19:28 73 134/83 11/21/17 16:00 98.0 66 19 142/76 96 Room Air 98.0 Intake and Output 11/21/17 11/22/17 19:00 07:00 Intake Total 1220.000 ml 803.334 ml Balance 1220.000 ml 803.334 ml Intake Oral 560 ml IV Total 660.000 ml 803.334 ml # Voids 5 2 Laboratory Tests 11/22/17 06:50: White Blood Count 5.1, Red Blood Count 4.11L, Hemoglobin 14.8, Hematocrit 40.5L , Mean Corpuscular Volume 99, Mean Corpuscular Hemoglobin 36.1H, Mean Corpuscular Hemoglobin Concent 36.5H, Red Cell Distribution Width 12.4, Platelet Count 250, Mean Platelet Volume 8.4, Neutrophils (%) (Auto) 41.4L, Lymphocytes (%) (Auto) 41.6, Monocytes (%) (Auto) 10.5H, Eosinophils (%) (Auto) 4.7H, Basophils (%) (Auto) 1.7, Sodium Level 135L, Potassium Level 3.5, Chloride Level 99, Carbon Dioxide Level 24, Anion Gap 12, Blood Urea Nitrogen 12 , Creatinine 1.1, Estimat Glomerular Filtration Rate > 60, Glucose Level 146#H, Calcium Level 9.6 Height (Feet): 6 Height (Inches): 4.00 Weight (Pounds): 186 General Appearance: alert EENT: normal ENT inspection Neck: normal alignment Cardiovascular: normal peripheral pulses, normal rate, regular rhythm Respiratory/Chest: chest wall non-tender, lungs clear, normal breath sounds Abdomen: normal bowel sounds, non tender, soft Extremities: normal inspection Edema: no edema noted Arm (L), no edema noted Arm (R), no edema noted Leg (L), no edema noted Leg (R), no edema noted Pedal (L), no edema noted Pedal (R), no edema noted Generalized Neurologic: responsive, motor weakness Skin: normal pigmentation, warm/dry Objective r foot dressing c&d DEBORAH GERONIMO Nov 22, 2017 12:33
--- NOTE | 2017-11-22 13:02 | Infectious Diseases Prog Note ---
Assessment/Plan Assessment/Plan ASSESSMENT: 1. The patient is a 52-year-old male with multiple medical problems, who has right plantar surface wound/infection- ?OM of R 2nd middle phalanx per MRI findings -MRI R foot: Abnormal STIR and T1 signal within the second middle phalanx, suspicious for osteomyelitis. Apparent focal fluid collection, very superficial , near the marker denoting a soft tissue ulcer. This is on the plantar surface near the second and third metatarsophalangeal joints, could represent a blister. This could also just represent fluid external to the patient. Is abnormality should be clinically apparent and correlation with clinical findings is recommended. More generalized edema, as described, could represent cellulitis or be hemodynamic in nature -wound cx p -ESR 21 2. Afebrile. 3. Normal white blood cells. 4. History of HIV and hepatitis screening negative 6 months ago (as per patient). -. Hypertension. -. Diabetes. -. History of left leg DVT. PLAN: 1. We will continue the patient on IV vancomycin and Zosyn #3 pending cultures 2. Monitor CBC. 3. Monitor BMP. 4. Monitor wound culture. 5. Podiatry f/u 6. wound care 7. Based on the patient's clinical course and labs, we will do further recommendation. Thank you, Dr. Diego Dave, for allowing me to participate in the care of this patient. I will follow the patient with you during this hospitalization. Subjective Allergies: Coded Allergies: No Known Allergies (Unverified , 10/14/17) Subjective afebrile no leukocytosis Objective Vital Signs Last 24 Hour Vital Signs Date Time Temp Pulse Resp B/P (MAP) Pulse Ox O2 Delivery O2 Flow Rate FiO2 11/22/17 12:00 97.7 74 21 136/73 98 Room Air 97.7 11/22/17 09:51 71 142/88 11/22/17 08:00 97.9 76 21 156/80 99 Room Air 97.9 11/22/17 04:00 98.0 75 21 147/88 99 98.0 11/22/17 00:00 98.6 64 21 160/81 100 98.6 11/21/17 20:00 97.4 75 21 150/90 100 97.4 11/21/17 19:28 73 134/83 11/21/17 16:00 98.0 66 19 142/76 96 Room Air 98.0 Height (Feet): 6 Height (Inches): 4.00 Weight (Pounds): 186 Objective HEENT: No pale conjunctivae. No icterus. NECK: No lymphadenopathy. CHEST: Clear. HEART: S1-S2. ABDOMEN: Soft. EXTREMITIES: The patient has a wound on the plantar aspect of the foot that has been packed. No significant tenderness at the time of my exam. NEUROLOGIC: Awake and alert. Microbiology Date/Time Source Procedure Growth Status 11/20/17 17:05 Drainage Fluid Gram Stain Pending Resulted 11/20/17 17:05 Drainage Fluid Wound Culture - Preliminary Resulted Laboratory Tests Test 11/22/17 06:50 White Blood Count 5.1 K/UL (4.8-10.8) Red Blood Count 4.11 M/UL (4.70-6.10) L Hemoglobin 14.8 G/DL (14.2-18.0) Hematocrit 40.5 % (42.0-52.0) L Mean Corpuscular Volume 99 FL (80-99) Mean Corpuscular Hemoglobin 36.1 PG (27.0-31.0) H Mean Corpuscular Hemoglobin Concent 36.5 G/DL (32.0-36.0) H Red Cell Distribution Width 12.4 % (11.6-14.8) Platelet Count 250 K/UL (150-450) Mean Platelet Volume 8.4 FL (6.5-10.1) Neutrophils (%) (Auto) 41.4 % (45.0-75.0) L Lymphocytes (%) (Auto) 41.6 % (20.0-45.0) Monocytes (%) (Auto) 10.5 % (1.0-10.0) H Eosinophils (%) (Auto) 4.7 % (0.0-3.0) H Basophils (%) (Auto) 1.7 % (0.0-2.0) Sodium Level 135 MMOL/L (136-145) L Potassium Level 3.5 MMOL/L (3.5-5.1) Chloride Level 99 MMOL/L (98-107) Carbon Dioxide Level 24 MMOL/L (21-32) Anion Gap 12 mmol/L (5-15) Blood Urea Nitrogen 12 mg/dL (7-18) Creatinine 1.1 MG/DL (0.55-1.30) Estimat Glomerular Filtration Rate > 60 mL/min (>60) Glucose Level 146 MG/DL (74-106) #H Calcium Level 9.6 MG/DL (8.5-10.1) Current Medications Medications (Trade) Dose Ordered Sig/Fiorella Route PRN Reason Start Time Stop Time Status Last Admin Dose Admin Dextrose (Dextrose 50%) 25 ml STAT PRN IV Hypoglycemia 11/21/17 11:00 12/21/17 10:59 Dextrose (Dextrose 50%) 50 ml STAT PRN IV Hypoglycemia 11/21/17 11:00 12/21/17 10:59 Heparin Sodium (Porcine) (Heparin 5000 units/ml) 5,000 units EVERY 12 HOURS SUBQ 11/21/17 09:00 12/21/17 08:59 11/22/17 09:52 Ibuprofen (Advil) 800 mg BID PRN ORAL For Pain 11/20/17 22:15 12/20/17 22:14 11/20/17 22:47 Insulin Aspart (NovoLOG) BEFORE MEALS AND HS SUBQ 11/21/17 06:30 12/21/17 06:29 11/22/17 12:01 Insulin Aspart (NovoLOG) 8 units NOVOTIAC SUBQ 11/21/17 11:50 12/21/17 11:49 11/22/17 12:02 Insulin Detemir (Levemir) 24 units DAILY SUBQ 11/21/17 11:00 12/21/17 10:59 11/22/17 09:53 Metformin HCl (Glucophage) 500 mg BIAC ORAL 11/21/17 06:30 12/21/17 06:29 11/22/17 06:24 Metoprolol Tartrate (Lopressor) 50 mg BID ORAL 11/21/17 09:00 12/21/17 08:59 11/22/17 09:51 Morphine Sulfate (Morphine Sulfate) 2 mg Q4H PRN IVP pain 11/20/17 22:30 11/27/17 22:29 11/21/17 16:44 Piperacillin Sod/ Tazobactam Sod 3.375 gm/Dextrose 110 ml @ 27.5 mls/hr EVERY 8 HOURS IVPB 11/21/17 14:00 11/28/17 13:59 11/22/17 06:31 Sodium Chloride 1,000 ml @ 60 mls/hr [id number] IV 11/20/17 22:15 12/20/17 22:14 11/21/17 22:48 Vancomycin HCl (Vanco rx to dose) 1 ea DAILY PRN MISC Per rx protocol 11/21/17 10:00 12/21/17 09:59 Vancomycin HCl/ Dextrose 250 ml @ 166.667 mls/hr Q12H IVPB 11/21/17 11:00 11/26/17 10:59 11/22/17 12:00 Giselle Cortes M.D. Nov 22, 2017 13:02
[2017-11-22 15:52] VITALS: BP 141/89
[2017-11-22 19:59] VITALS: BP 142/80
[2017-11-22] MEDS: Morphine Sulfate 4mg/ml Inj IVP PRN (20:05)
[2017-11-23 00:28] VITALS: BP 135/77
[2017-11-23] MEDS: Vancomycin 1250mg/D5W 250ml IVPB SCH ×2 (00:48→11:39)
[2017-11-23 04:00] VITALS: BP 143/77
[2017-11-23] MEDS: Morphine Sulfate 4mg/ml Inj IVP PRN ×2 (06:03→20:24)
[2017-11-23] MEDS: Piperacillin/Tazobactam 3.375 GM in D5W 110 ML IVPB SCH ×2 (06:05→15:14)
[2017-11-23] MEDS: metFORMIN 500mg tab ORAL SCH ×2 (06:05→17:11)
[2017-11-23] MEDS: NovoLOG Insulin Flexpen SUBQ SCH ×6 (06:25→20:37)
[2017-11-23 07:29] LABS: BASOPHILS % (AUTO) 2.1 % (0.0-2.0); EOSINOPHILS % (AUTO) 4.7 % (0.0-3.0); HEMATOCRIT 38.3 % (42.0-52.0); HEMOGLOBIN 13.9 G/DL (14.2-18.0); LYMPHOCYTES % (AUTO) 43.3 % (20.0-45.0); MEAN CORPUSCULAR VOLUME 98 FL (80-99); MONOCYTES % (AUTO) 11.2 % (1.0-10.0); NEUTROPHILS % (AUTO) 38.6 % (45.0-75.0); PLATELET COUNT 254 K/UL (150-450); RED BLOOD COUNT 3.93 M/UL (4.70-6.10); WHITE BLOOD COUNT 5.5 K/UL (4.8-10.8)
[2017-11-23 07:42] LABS: ANION GAP 9 mmol/L (5-15); BLOOD UREA NITROGEN 9 mg/dL (7-18); CALCIUM 9.2 MG/DL (8.5-10.1); CARBON DIOXIDE 25 MMOL/L (21-32); CHLORIDE 101 MMOL/L (98-107); CREATININE 1.3 MG/DL (0.55-1.30); POTASSIUM 3.6 MMOL/L (3.5-5.1); SODIUM 135 MMOL/L (136-145)
[2017-11-23 08:00] VITALS: BP 150/83
[2017-11-23] MEDS: Levemir Flexpen SUBQ SCH (08:55)
[2017-11-23] MEDS ORDERED: Tubing IV Secondary IV ONE (09:23)
[2017-11-23] MEDS ORDERED: 1/2 NS 1000ml IV ONE (09:23)
[2017-11-23] MEDS ORDERED: NS 275ml ONE (09:23)
[2017-11-23] MEDS: Metoprolol Tartrate 50mg tab ORAL SCH ×2 (09:29→17:11)
[2017-11-23] MEDS: Heparin 5000 units/ml inj SUBQ SCH ×2 (09:33→20:37)
[2017-11-23 12:00] VITALS: BP 154/87
--- NOTE | 2017-11-23 13:43 | General Progress Note ---
Assessment/Plan Problem List: (1) Diabetic foot ulcer ICD Codes: E11.621 - Type 2 diabetes mellitus with foot ulcer; L97.509 - Non- pressure chronic ulcer of other part of unspecified foot with unspecified severity SNOMED: [id number], [id number] Qualifiers: Qualified Codes: E11.621 - Type 2 diabetes mellitus with foot ulcer; L97.413 - Non-pressure chronic ulcer of right heel and midfoot with necrosis of muscle (2) Diabetes mellitus out of control ICD Codes: E11.65 - Type 2 diabetes mellitus with hyperglycemia SNOMED: 23075332, [id number] Status: stable, progressing, tolerating diet Assessment/Plan bs pain control abx wound care cbc bmp am dc plan if clear Subjective Constitutional: Reports: weakness Allergies: Coded Allergies: No Known Allergies (Unverified , 10/14/17) All Systems: reviewed and negative except above Subjective calm in bed Objective Last 24 Hour Vital Signs Date Time Temp Pulse Resp B/P (MAP) Pulse Ox O2 Delivery O2 Flow Rate FiO2 11/23/17 12:00 96.8 64 16 154/87 96 Room Air 96.8 11/23/17 09:29 70 147/73 11/23/17 08:00 98.1 73 14 150/83 99 Room Air 98.1 11/23/17 08:00 98.1 73 19 150/83 99 Room Air 98.1 11/23/17 04:00 97.7 72 19 143/77 99 97.7 11/23/17 00:28 97.9 68 20 135/77 97 97.9 11/22/17 19:59 97.7 66 19 142/80 97 97.7 11/22/17 18:02 68 144/88 11/22/17 15:52 97.3 71 20 141/89 97 Room Air 97.3 Intake and Output 11/22/17 11/23/17 19:00 07:00 Intake Total 1467.500 ml 1140.000 ml Balance 1467.500 ml 1140.000 ml Intake Oral 960 ml 480 ml IV Total 507.500 ml 660.000 ml # Voids 1 3 Laboratory Tests 11/22/17 22:10: Vancomycin Level Trough 16.6H 11/23/17 05:25: White Blood Count 5.5, Red Blood Count 3.93L, Hemoglobin 13.9L, Hematocrit 38.3L , Mean Corpuscular Volume 98, Mean Corpuscular Hemoglobin 35.3H, Mean Corpuscular Hemoglobin Concent 36.2H, Red Cell Distribution Width 12.0, Platelet Count 254, Mean Platelet Volume 8.6, Neutrophils (%) (Auto) 38.6L, Lymphocytes (%) (Auto) 43.3, Monocytes (%) (Auto) 11.2H, Eosinophils (%) (Auto) 4.7H, Basophils (%) (Auto) 2.1H, Sodium Level 135L, Potassium Level 3.6, Chloride Level 101, Carbon Dioxide Level 25, Anion Gap 9, Blood Urea Nitrogen 9 , Creatinine 1.3, Estimat Glomerular Filtration Rate > 60, Glucose Level 169H, Calcium Level 9.2, C-Reactive Protein, Quantitative 0.8 Height (Feet): 6 Height (Inches): 4.00 Weight (Pounds): 186 General Appearance: alert EENT: normal ENT inspection Neck: normal alignment Cardiovascular: normal peripheral pulses, normal rate, regular rhythm Respiratory/Chest: chest wall non-tender, lungs clear, normal breath sounds Abdomen: normal bowel sounds, non tender, soft Extremities: normal inspection Edema: no edema noted Arm (L), no edema noted Arm (R), no edema noted Leg (L), no edema noted Leg (R), no edema noted Pedal (L), no edema noted Pedal (R), no edema noted Generalized Neurologic: responsive, motor weakness Skin: normal pigmentation, warm/dry Objective r foot dressing c&d DEBORAH GERONIMO Nov 23, 2017 13:43
[2017-11-23 15:47] VITALS: BP 142/81
--- NOTE | 2017-11-23 16:17 | Podiatric Progress Note ---
Assessment/Plan Patient Tim Molina is a 52 year old male who was admitted on Nov 20, 2017 at 18:59 with Assessment/Plan A/ 1) Cellulitis right foot - resolving 2) DM with neuropathy P/ 1) Cont wound care. Patient will need out patient follow up as well as off loading shoe 2) MRI reviewed - OM unlikely as inflammatory markers do not suggest osteo 3) D/W ID and will discharge on PO abx 4) Ok to d/c from my standpoint. Will have casey saw operator work on follow up appt with patient's Application Architect Manager. Subjective Allergies: Coded Allergies: No Known Allergies (Unverified , 10/14/17) Subjective Patient states that he feels much better. He has no pain. Objective Exam Last 24 Hour Vital Signs Date Time Temp Pulse Resp B/P (MAP) Pulse Ox O2 Delivery O2 Flow Rate FiO2 11/23/17 15:47 97.3 69 21 142/81 100 Room Air 97.3 11/23/17 12:00 96.8 64 16 154/87 96 Room Air 96.8 11/23/17 09:29 70 147/73 11/23/17 08:00 98.1 73 14 150/83 99 Room Air 98.1 11/23/17 08:00 98.1 73 19 150/83 99 Room Air 98.1 11/23/17 04:00 97.7 72 19 143/77 99 97.7 11/23/17 00:28 97.9 68 20 135/77 97 97.9 11/22/17 19:59 97.7 66 19 142/80 97 97.7 11/22/17 18:02 68 144/88 Laboratory Tests Test 11/22/17 22:10 11/23/17 05:25 Vancomycin Level Trough 16.6 ug/mL (5.0-12.0) H White Blood Count 5.5 K/UL (4.8-10.8) Red Blood Count 3.93 M/UL (4.70-6.10) L Hemoglobin 13.9 G/DL (14.2-18.0) L Hematocrit 38.3 % (42.0-52.0) L Mean Corpuscular Volume 98 FL (80-99) Mean Corpuscular Hemoglobin 35.3 PG (27.0-31.0) H Mean Corpuscular Hemoglobin Concent 36.2 G/DL (32.0-36.0) H Red Cell Distribution Width 12.0 % (11.6-14.8) Platelet Count 254 K/UL (150-450) Mean Platelet Volume 8.6 FL (6.5-10.1) Neutrophils (%) (Auto) 38.6 % (45.0-75.0) L Lymphocytes (%) (Auto) 43.3 % (20.0-45.0) Monocytes (%) (Auto) 11.2 % (1.0-10.0) H Eosinophils (%) (Auto) 4.7 % (0.0-3.0) H Basophils (%) (Auto) 2.1 % (0.0-2.0) H Sodium Level 135 MMOL/L (136-145) L Potassium Level 3.6 MMOL/L (3.5-5.1) Chloride Level 101 MMOL/L (98-107) Carbon Dioxide Level 25 MMOL/L (21-32) Anion Gap 9 mmol/L (5-15) Blood Urea Nitrogen 9 mg/dL (7-18) Creatinine 1.3 MG/DL (0.55-1.30) Estimat Glomerular Filtration Rate > 60 mL/min (>60) Glucose Level 169 MG/DL (74-106) H Calcium Level 9.2 MG/DL (8.5-10.1) C-Reactive Protein, Quantitative 0.8 mg/dL (0.00-0.90) Microbiology Date/Time Source Procedure Growth Status 11/20/17 17:05 Drainage Fluid Gram Stain - Final Resulted 11/20/17 17:05 Wound Culture - Preliminary Usual Skin Bernarda Resulted Dermatological Wound Assessment : Exudate Amount: Scant Dermatological Narrative right foot plantar wound, no purulent discharge noted. Mild serous drainage. Toes are not edematous. CFT is WNL. Wound probes to muscle Wound edges are macerated. Norris Anguiano DPM Nov 23, 2017 16:17
--- NOTE | 2017-11-23 16:29 | Infectious Diseases Prog Note ---
Assessment/Plan Assessment/Plan ASSESSMENT: 1. The patient is a 52-year-old male with multiple medical problems, who has right plantar surface wound/infection- ?OM of R 2nd middle phalanx per MRI findings- however ESR and CRP normal and wound is not overlying 2nd middle phalanx- doubt OM -MRI R foot: Abnormal STIR and T1 signal within the second middle phalanx, suspicious for osteomyelitis. Apparent focal fluid collection, very superficial , near the marker denoting a soft tissue ulcer. This is on the plantar surface near the second and third metatarsophalangeal joints, could represent a blister. This could also just represent fluid external to the patient. Is abnormality should be clinically apparent and correlation with clinical findings is recommended. More generalized edema, as described, could represent cellulitis or be hemodynamic in nature -wound cx usual skin lary to date -ESR 21, CRP 0.8 2. Afebrile. 3. Normal white blood cells. 4. History of HIV and hepatitis screening negative 6 months ago (as per patient). -. Hypertension. -. Diabetes. -. History of left leg DVT. PLAN: 1. Switch IV vancomycin and Zosyn #4/14 to PO doxycyline and PO augmentin 875/ 125mg bid to complete course; ok to discharge on this regimen 2. Monitor CBC. 3. Monitor BMP. 4. Monitor wound culture. 5. Podiatry f/u 6. wound care 7. Based on the patient's clinical course and labs, we will do further recommendation. Thank you, Dr. Diego Dave, for allowing me to participate in the care of this patient. I will follow the patient with you during this hospitalization. Discussed with interactive web developer. Subjective Allergies: Coded Allergies: No Known Allergies (Unverified , 10/14/17) Subjective afebrile no leukocytosis Objective Vital Signs Last 24 Hour Vital Signs Date Time Temp Pulse Resp B/P (MAP) Pulse Ox O2 Delivery O2 Flow Rate FiO2 11/23/17 15:47 97.3 69 21 142/81 100 Room Air 97.3 11/23/17 12:00 96.8 64 16 154/87 96 Room Air 96.8 11/23/17 09:29 70 147/73 11/23/17 08:00 98.1 73 14 150/83 99 Room Air 98.1 11/23/17 08:00 98.1 73 19 150/83 99 Room Air 98.1 11/23/17 04:00 97.7 72 19 143/77 99 97.7 11/23/17 00:28 97.9 68 20 135/77 97 97.9 11/22/17 19:59 97.7 66 19 142/80 97 97.7 11/22/17 18:02 68 144/88 Height (Feet): 6 Height (Inches): 4.00 Weight (Pounds): 186 Objective HEENT: No pale conjunctivae. No icterus. NECK: No lymphadenopathy. CHEST: Clear. HEART: S1-S2. ABDOMEN: Soft. EXTREMITIES: The patient has a wound on the plantar aspect of the foot; no drainage currently, minimal surroundign erythema and warmth NEUROLOGIC: Awake and alert. Microbiology Date/Time Source Procedure Growth Status 11/20/17 17:05 Drainage Fluid Gram Stain - Final Resulted 11/20/17 17:05 Wound Culture - Preliminary Usual Skin Lary Resulted Laboratory Tests Test 11/22/17 22:10 11/23/17 05:25 Vancomycin Level Trough 16.6 ug/mL (5.0-12.0) H White Blood Count 5.5 K/UL (4.8-10.8) Red Blood Count 3.93 M/UL (4.70-6.10) L Hemoglobin 13.9 G/DL (14.2-18.0) L Hematocrit 38.3 % (42.0-52.0) L Mean Corpuscular Volume 98 FL (80-99) Mean Corpuscular Hemoglobin 35.3 PG (27.0-31.0) H Mean Corpuscular Hemoglobin Concent 36.2 G/DL (32.0-36.0) H Red Cell Distribution Width 12.0 % (11.6-14.8) Platelet Count 254 K/UL (150-450) Mean Platelet Volume 8.6 FL (6.5-10.1) Neutrophils (%) (Auto) 38.6 % (45.0-75.0) L Lymphocytes (%) (Auto) 43.3 % (20.0-45.0) Monocytes (%) (Auto) 11.2 % (1.0-10.0) H Eosinophils (%) (Auto) 4.7 % (0.0-3.0) H Basophils (%) (Auto) 2.1 % (0.0-2.0) H Sodium Level 135 MMOL/L (136-145) L Potassium Level 3.6 MMOL/L (3.5-5.1) Chloride Level 101 MMOL/L (98-107) Carbon Dioxide Level 25 MMOL/L (21-32) Anion Gap 9 mmol/L (5-15) Blood Urea Nitrogen 9 mg/dL (7-18) Creatinine 1.3 MG/DL (0.55-1.30) Estimat Glomerular Filtration Rate > 60 mL/min (>60) Glucose Level 169 MG/DL (74-106) H Calcium Level 9.2 MG/DL (8.5-10.1) C-Reactive Protein, Quantitative 0.8 mg/dL (0.00-0.90) Current Medications Medications (Trade) Dose Ordered Sig/Fiorella Route PRN Reason Start Time Stop Time Status Last Admin Dose Admin Dextrose (Dextrose 50%) 25 ml STAT PRN IV Hypoglycemia 11/21/17 11:00 12/21/17 10:59 Dextrose (Dextrose 50%) 50 ml STAT PRN IV Hypoglycemia 11/21/17 11:00 12/21/17 10:59 Heparin Sodium (Porcine) (Heparin 5000 units/ml) 5,000 units EVERY 12 HOURS SUBQ 11/21/17 09:00 12/21/17 08:59 11/23/17 09:33 Ibuprofen (Advil) 800 mg BID PRN ORAL For Pain 11/20/17 22:15 12/20/17 22:14 11/20/17 22:47 Insulin Aspart (NovoLOG) BEFORE MEALS AND HS SUBQ 11/21/17 06:30 12/21/17 06:29 11/23/17 11:40 Insulin Aspart (NovoLOG) 8 units NOVOTIAC SUBQ 11/21/17 11:50 12/21/17 11:49 11/23/17 12:29 Insulin Detemir (Levemir) 24 units DAILY SUBQ 11/21/17 11:00 12/21/17 10:59 11/23/17 08:55 Metformin HCl (Glucophage) 500 mg BIAC ORAL 11/21/17 06:30 12/21/17 06:29 11/23/17 06:05 Metoprolol Tartrate (Lopressor) 50 mg BID ORAL 11/21/17 09:00 12/21/17 08:59 11/23/17 09:29 Morphine Sulfate (Morphine Sulfate) 2 mg Q4H PRN IVP pain 11/20/17 22:30 11/27/17 22:29 11/23/17 06:03 Piperacillin Sod/ Tazobactam Sod 3.375 gm/Dextrose 110 ml @ 27.5 mls/hr EVERY 8 HOURS IVPB 11/21/17 14:00 11/28/17 13:59 11/23/17 15:14 Sodium Chloride 1,000 ml @ 60 mls/hr [id number] IV 11/20/17 22:15 12/20/17 22:14 11/23/17 00:48 Vancomycin HCl (Vanco rx to dose) 1 ea DAILY PRN MISC Per rx protocol 11/21/17 10:00 12/21/17 09:59 Vancomycin HCl/ Dextrose 250 ml @ 166.667 mls/hr Q12H IVPB 11/21/17 11:00 11/26/17 10:59 11/23/17 11:39 Giselle Cortes M.D. Nov 23, 2017 16:29
[2017-11-23 20:00] VITALS: BP 156/84
[2017-11-23] MEDS: Augmentin 875mg Tab ORAL SCH (20:24)
[2017-11-24] VITALS: BP 137/74
[2017-11-24] MEDS: metFORMIN 500mg tab ORAL SCH (06:05)
[2017-11-24] MEDS: NovoLOG Insulin Flexpen SUBQ SCH ×4 (06:07→12:23)
--- NOTE | 2017-11-24 06:42 | General Progress Note ---
Assessment/Plan Problem List: (1) Diabetes mellitus out of control ICD Codes: E11.65 - Type 2 diabetes mellitus with hyperglycemia SNOMED: 20024299, 124630811 (2) Osteomyelitis ICD Codes: M86.9 - Osteomyelitis, unspecified SNOMED: 67732499 Qualifiers: Qualified Codes: M86.171 - Other acute osteomyelitis, right ankle and foot (3) Cellulitis ICD Codes: L03.90 - Cellulitis, unspecified SNOMED: 219701733 Qualifiers: Qualified Codes: L03.115 - Cellulitis of right lower limb (4) Diabetic foot ulcer ICD Codes: E11.621 - Type 2 diabetes mellitus with foot ulcer; L97.509 - Non- pressure chronic ulcer of other part of unspecified foot with unspecified severity SNOMED: 489095738, 44192636 Qualifiers: Qualified Codes: E11.621 - Type 2 diabetes mellitus with foot ulcer; L97.413 - Non-pressure chronic ulcer of right heel and midfoot with necrosis of muscle Assessment/Plan continue Metformin continue Levemir 24 units daily continue Novolog 8 units ac tid continue NISS Rx for diabetic supplies left in chart Subjective Allergies: Coded Allergies: No Known Allergies (Unverified , 10/14/17) All Systems: reviewed and negative except above Subjective events noted doing better BG values improved Objective Last 24 Hour Vital Signs Date Time Temp Pulse Resp B/P (MAP) Pulse Ox O2 Delivery O2 Flow Rate FiO2 11/24/17 04:00 98.1 65 20 100 98.1 11/24/17 00:00 98.2 67 20 137/74 100 98.2 11/23/17 20:00 98.0 67 20 156/84 99 98.0 11/23/17 17:11 69 142/81 11/23/17 15:47 97.3 69 21 142/81 100 Room Air 97.3 11/23/17 12:00 96.8 64 16 154/87 96 Room Air 96.8 11/23/17 09:29 70 147/73 11/23/17 08:00 98.1 73 14 150/83 99 Room Air 98.1 11/23/17 08:00 98.1 73 19 150/83 99 Room Air 98.1 Intake and Output 11/23/17 11/24/17 19:00 07:00 Intake Total 1985.000 ml 120 ml Balance 1985.000 ml 120 ml Intake Oral 960 ml IV Total 1025.000 ml 120 ml Height (Feet): 6 Height (Inches): 4.00 Weight (Pounds): 186 General Appearance: no apparent distress Neck: normal alignment Cardiovascular: normal rate Respiratory/Chest: chest wall non-tender, lungs clear Abdomen: normal bowel sounds Pelvis: normal external exam Edema: no edema noted Arm (L), no edema noted Arm (R), no edema noted Leg (L), no edema noted Leg (R), no edema noted Pedal (L), no edema noted Pedal (R), no edema noted Generalized Objective Current Medications Medications (Trade) Dose Ordered Sig/Fiorella Route PRN Reason Start Time Stop Time Status Last Admin Dose Admin Amoxicillin/ Clavulanate Potassium (Augmentin) 875 mg EVERY 12 HOURS ORAL 11/23/17 21:00 11/30/17 20:59 11/23/17 20:24 Dextrose (Dextrose 50%) 25 ml STAT PRN IV Hypoglycemia 11/21/17 11:00 12/21/17 10:59 Dextrose (Dextrose 50%) 50 ml STAT PRN IV Hypoglycemia 11/21/17 11:00 12/21/17 10:59 Doxycycline Monohydrate (Vibramycin) 100 mg EVERY 12 HOURS ORAL 11/23/17 21:00 11/30/17 20:59 11/23/17 20:24 Heparin Sodium (Porcine) (Heparin 5000 units/ml) 5,000 units EVERY 12 HOURS SUBQ 11/21/17 09:00 12/21/17 08:59 11/23/17 20:37 Ibuprofen (Advil) 800 mg BID PRN ORAL For Pain 11/20/17 22:15 12/20/17 22:14 11/20/17 22:47 Insulin Aspart (NovoLOG) BEFORE MEALS AND HS SUBQ 11/21/17 06:30 12/21/17 06:29 11/24/17 06:07 Insulin Aspart (NovoLOG) 8 units NOVOTIAC SUBQ 11/21/17 11:50 12/21/17 11:49 11/24/17 06:07 Insulin Detemir (Levemir) 24 units DAILY SUBQ 11/21/17 11:00 12/21/17 10:59 11/23/17 08:55 Metformin HCl (Glucophage) 500 mg BIAC ORAL 11/21/17 06:30 12/21/17 06:29 11/24/17 06:05 Metoprolol Tartrate (Lopressor) 50 mg BID ORAL 11/21/17 09:00 12/21/17 08:59 11/23/17 17:11 Morphine Sulfate (Morphine Sulfate) 2 mg Q4H PRN IVP pain 11/20/17 22:30 11/27/17 22:29 11/23/17 20:24 Sodium Chloride 1,000 ml @ 60 mls/hr [id number] IV 11/20/17 22:15 12/20/17 22:14 11/23/17 00:48 Item Value Date Time Bedside Blood Glucose 200 mg/dl H 11/24/17 0622 Bedside Blood Glucose 99 mg/dl 11/23/17 2100 Bedside Blood Glucose 144 mg/dl H 11/23/17 1705 Bedside Blood Glucose 230 mg/dl H 11/23/17 1229 Bedside Blood Glucose 263 mg/dl H 11/23/17 0855 Bedside Blood Glucose 173 mg/dl H 11/23/17 0628 MIS MUNOZ Nov 24, 2017 06:42
[2017-11-24 08:00] VITALS: BP 170/88
[2017-11-24 08:16] LABS: BASOPHILS % (AUTO) 2.2 % (0.0-2.0); EOSINOPHILS % (AUTO) 5.1 % (0.0-3.0); HEMATOCRIT 41.9 % (42.0-52.0); HEMOGLOBIN 14.9 G/DL (14.2-18.0); LYMPHOCYTES % (AUTO) 39.7 % (20.0-45.0); MEAN CORPUSCULAR VOLUME 99 FL (80-99); MONOCYTES % (AUTO) 9.7 % (1.0-10.0); NEUTROPHILS % (AUTO) 43.4 % (45.0-75.0); PLATELET COUNT 274 K/UL (150-450); RED BLOOD COUNT 4.22 M/UL (4.70-6.10); RED CELL DISTRIBUTION WIDTH 12.6 % (11.6-14.8); WHITE BLOOD COUNT 5.8 K/UL (4.8-10.8)
[2017-11-24] MEDS: Metoprolol Tartrate 50mg tab ORAL SCH (08:19)
[2017-11-24] MEDS: Heparin 5000 units/ml inj SUBQ SCH (08:20)
[2017-11-24] MEDS: Augmentin 875mg Tab ORAL SCH (08:20)
[2017-11-24] MEDS: Levemir Flexpen SUBQ SCH (08:23)
[2017-11-24 08:33] LABS: ANION GAP 5 mmol/L (5-15); BLOOD UREA NITROGEN 9 mg/dL (7-18); CALCIUM 9.5 MG/DL (8.5-10.1); CARBON DIOXIDE 30 MMOL/L (21-32); CHLORIDE 101 MMOL/L (98-107); CREATININE 1.3 MG/DL (0.55-1.30); POTASSIUM 4.2 MMOL/L (3.5-5.1); SODIUM 136 MMOL/L (136-145)
[2017-11-24 12:00] VITALS: BP 169/91
--- NOTE | 2017-11-24 12:54 | Cardiac Electrophysiology PN ---
Subjective Subjective [id number] Objective Last 24 Hour Vital Signs Date Time Temp Pulse Resp B/P (MAP) Pulse Ox O2 Delivery O2 Flow Rate FiO2 11/24/17 08:19 76 170/88 11/24/17 08:00 98.0 76 14 170/88 100 98.0 11/24/17 04:00 98.1 65 20 100 98.1 11/24/17 00:00 98.2 67 20 137/74 100 98.2 11/23/17 20:00 98.0 67 20 156/84 99 98.0 11/23/17 17:11 69 142/81 11/23/17 15:47 97.3 69 21 142/81 100 Room Air 97.3 Intake and Output 11/23/17 11/24/17 19:00 07:00 Intake Total 1985.000 ml 120 ml Balance 1985.000 ml 120 ml Intake Oral 960 ml IV Total 1025.000 ml 120 ml # Voids 4 Laboratory Tests Test 11/24/17 07:10 White Blood Count 5.8 K/UL (4.8-10.8) Red Blood Count 4.22 M/UL (4.70-6.10) L Hemoglobin 14.9 G/DL (14.2-18.0) Hematocrit 41.9 % (42.0-52.0) L Mean Corpuscular Volume 99 FL (80-99) Mean Corpuscular Hemoglobin 35.4 PG (27.0-31.0) H Mean Corpuscular Hemoglobin Concent 35.7 G/DL (32.0-36.0) Red Cell Distribution Width 12.6 % (11.6-14.8) Platelet Count 274 K/UL (150-450) Mean Platelet Volume 8.9 FL (6.5-10.1) Neutrophils (%) (Auto) 43.4 % (45.0-75.0) L Lymphocytes (%) (Auto) 39.7 % (20.0-45.0) Monocytes (%) (Auto) 9.7 % (1.0-10.0) Eosinophils (%) (Auto) 5.1 % (0.0-3.0) H Basophils (%) (Auto) 2.2 % (0.0-2.0) H Sodium Level 136 MMOL/L (136-145) Potassium Level 4.2 MMOL/L (3.5-5.1) Chloride Level 101 MMOL/L (98-107) Carbon Dioxide Level 30 MMOL/L (21-32) Anion Gap 5 mmol/L (5-15) Blood Urea Nitrogen 9 mg/dL (7-18) Creatinine 1.3 MG/DL (0.55-1.30) Estimat Glomerular Filtration Rate > 60 mL/min (>60) Glucose Level 185 MG/DL (74-106) H Calcium Level 9.5 MG/DL (8.5-10.1) Julian Chandra MD Nov 24, 2017 12:54
--- NOTE | 2017-11-24 12:55 | General Progress Note ---
Assessment/Plan Problem List: (1) Diabetic foot ulcer ICD Codes: E11.621 - Type 2 diabetes mellitus with foot ulcer; L97.509 - Non- pressure chronic ulcer of other part of unspecified foot with unspecified severity SNOMED: 011717354, 61597961 Qualifiers: Qualified Codes: E11.621 - Type 2 diabetes mellitus with foot ulcer; L97.413 - Non-pressure chronic ulcer of right heel and midfoot with necrosis of muscle (2) Diabetes mellitus out of control ICD Codes: E11.65 - Type 2 diabetes mellitus with hyperglycemia SNOMED: 16869698, 394806243 Status: stable, progressing, tolerating diet Assessment/Plan bs pain control abx wound care dc if clear Subjective Constitutional: Reports: weakness Allergies: Coded Allergies: No Known Allergies (Unverified , 10/14/17) All Systems: reviewed and negative except above Subjective calm in bed Objective Last 24 Hour Vital Signs Date Time Temp Pulse Resp B/P (MAP) Pulse Ox O2 Delivery O2 Flow Rate FiO2 11/24/17 08:19 76 170/88 11/24/17 08:00 98.0 76 14 170/88 100 98.0 11/24/17 04:00 98.1 65 20 100 98.1 11/24/17 00:00 98.2 67 20 137/74 100 98.2 11/23/17 20:00 98.0 67 20 156/84 99 98.0 11/23/17 17:11 69 142/81 11/23/17 15:47 97.3 69 21 142/81 100 Room Air 97.3 Intake and Output 11/23/17 11/24/17 19:00 07:00 Intake Total 1985.000 ml 120 ml Balance 1985.000 ml 120 ml Intake Oral 960 ml IV Total 1025.000 ml 120 ml # Voids 4 Laboratory Tests 11/24/17 07:10: White Blood Count 5.8, Red Blood Count 4.22L, Hemoglobin 14.9, Hematocrit 41.9L , Mean Corpuscular Volume 99, Mean Corpuscular Hemoglobin 35.4H, Mean Corpuscular Hemoglobin Concent 35.7, Red Cell Distribution Width 12.6, Platelet Count 274, Mean Platelet Volume 8.9, Neutrophils (%) (Auto) 43.4L, Lymphocytes ( %) (Auto) 39.7, Monocytes (%) (Auto) 9.7, Eosinophils (%) (Auto) 5.1H, Basophils (%) (Auto) 2.2H, Sodium Level 136, Potassium Level 4.2, Chloride Level 101, Carbon Dioxide Level 30, Anion Gap 5, Blood Urea Nitrogen 9, Creatinine 1.3, Estimat Glomerular Filtration Rate > 60, Glucose Level 185H, Calcium Level 9.5 Height (Feet): 6 Height (Inches): 4.00 Weight (Pounds): 186 General Appearance: lethargic EENT: normal ENT inspection Neck: normal alignment Cardiovascular: normal peripheral pulses, normal rate, regular rhythm Respiratory/Chest: chest wall non-tender, lungs clear, normal breath sounds Abdomen: normal bowel sounds, non tender, soft Extremities: normal inspection Edema: no edema noted Arm (L), no edema noted Arm (R), no edema noted Leg (L), no edema noted Leg (R), no edema noted Pedal (L), no edema noted Pedal (R), no edema noted Generalized Neurologic: responsive, motor weakness Skin: normal pigmentation, warm/dry Objective r foot dressing c&DEBORAH Caruso Nov 24, 2017 12:55
[2017-11-24 13:49] VITALS: BP 169/91
[2017-11-24] MEDS ORDERED: LEVEMIR FL100 UNIT/2 SQ (14:05)
[2017-11-24] MEDS ORDERED: NOVOLOG100 UNITS1 SUBQ (14:05)
[2017-11-24] MEDS ORDERED: AUGMENTIN 875-1 EAC1 ORAL (14:06)
[2017-11-24] MEDS ORDERED: DOXYCYCLINE HY100 M2 PO (14:06)
[2017-11-24] MEDS ORDERED: NORVASC5 MG ORAL (14:06)
[2017-11-24] MEDS ORDERED: METFORMIN HCL500 M1 ORAL (14:07)
--- NOTE | 2017-11-24 23:45 | Consultation ---
DATE OF CONSULTATION: 11/24/2017 CARDIOLOGY CONSULTATION CONSULTING PHYSICIAN: Julian Chandra M.D. REFERRING PHYSICIAN: Diego Dave D.O. REASON FOR CONSULTATION: Accelerated hypertension. HISTORY OF PRESENT ILLNESS: The patient is a 52-year-old gentleman with diabetes, cellulitis, hypertension, osteomyelitis, and diabetic foot ulcer, who was admitted to the hospital for non-pressure chronic ulcer of the foot. The patient was also on IV antibiotic and today noted that the blood pressure is persistently elevated at 170s. Cardiology consultation was obtained for further evaluation and management. REVIEW OF SYSTEMS: Thoroughly performed and was negative other than what was mentioned in the history of present illness. PAST MEDICAL HISTORY: 1. Hypertension. 2. Diabetes. 3. Left leg DVT. FAMILY HISTORY: Noncontributory. SOCIAL HISTORY: He is an ex-smoker. No history of alcohol abuse. No history of IV drug use. ALLERGIES: He has no known drug allergies. MEDICATIONS: Per reconciliation and IV vancomycin. PHYSICAL EXAMINATION: VITAL SIGNS: Blood pressure is 170/88, pulse is 76, respirations 18, and he is afebrile. HEAD AND NECK: No JVD or carotid bruits. LUNGS: Clear. CARDIOVASCULAR: Regular S1 and S2 with no gallop or murmur. ABDOMEN: Soft and nontender. EXTREMITIES: Right foot ulcer. LABORATORY DATA: His labs show white count of 5.8, hemoglobin 14.9, hematocrit of 42, and platelet count of 274. Sodium 136, potassium 4.2, BUN of 9, creatinine of 1.3, and glucose of 195. ASSESSMENT AND PLAN: 1. Accelerated hypertension. The patient is on metoprolol 50 mg b.i.d. at home and current dosage in the hospital. I will add Norvasc 5 mg daily to his medical regimen and add p.r.n. clonidine. 2. Diabetes, on metformin and insulin. 3. Diabetic foot ulcer. IV antibiotic changed to amoxicillin and doxycycline. Further evaluation by Dr. Clement. 4. Diabetes per Dr. Raymond. Thank you very much, Dr. Dave, for allowing me to participate in the care of this patient. Please do not hesitate to contact me for any questions regarding my evaluation. Julian Chandra M.D. DR: SUSU JOB#: [id number] CC:
--- NOTE | 2017-11-25 15:34 | Discharge Summary ---
Discharge Summary Discharge Summary Discharge Summary DATE OF ADMISSION: 11/20/2017 DATE OF DISCHARGE: 11/24/2017 CONSULTANTS: Dr. Julian Anguiano [facility] HOSPITAL COURSE: Patient is a 52-year-old male, who lives at home with history of diabetes. He apparently a month ago developed right foot ulcer, which eventually got worse. He was treated multiple times in the past, but now it burst open and appeared to have a draining foul-smelling fluid. He has medical history significant for diabetes mellitus and hypertension. On evaluation at ED, patient had right foot pain. Blood work did not show any leukocytosis. X-ray of the right foot showed no dislocation, no soft tissue swelling, no fractures. He was admitted for abscess and cellulitis on the right foot. He was seen by director of agriculture and was given wound care. Foot MRI showed abnormal signal in the second middle phalanx, suspicious for osteomyelitis. He was given IV vancomycin and Zosyn. Upon further review of director of agriculture, osteomyelitis was unlikely as inflammatory markers did not suggest osteomyelitis. ESR 21, CRP 0.8. Wound culture with usual skin lary. He had diabetes mellitus and was continued on metformin, Levemir 24 units daily and NovoLog 8 units before meals 3 times a day. He was continued on insulin sliding scale. Glipizide was discontinued. Blood pressure was elevated, patient on metoprolol 50 mg twice a day Norvasc was added to his regimen together with prn Clonidine. He was eventually cleared for discharge home to continue po antibiotics to complete course. FINAL DIAGNOSES: Diabetic foot ulcer present on admission Diabetes mellitus out of control Cellulitis of right foot, resolving Diabetes mellitus with neuropathy Unlikely osteomyelitis Accelerated hypertension DISPOSITION: Patient was discharged home with home health DISCHARGE MEDICATIONS: Refer to Discharge Medication List. Continue with Augmentin 875/125 twice a day and doxycycline 100 mg twice a day for 9 more days. DISCHARGE INSTRUCTIONS: Follow up with PCP in a week. I have been assigned to dictate discharge summary on this account, and I was not involved in the patient's management. Michelle Hill NP Nov 25, 2017 15:34
== END 2017-11-24 14:45 | disposition home health service (06) | DRG 380 ==
LOC: EMR 17:27 → EDBEDREQ 18:29 → 4E 18:59
DX: E11.621 Type 2 diabetes mellitus with foot ulcer (principal); L97.519 Non-pressure chronic ulcer of other part of right foot with unspecified severity; E11.40 Type 2 diabetes mellitus with diabetic neuropathy, unspecified; E11.65 Type 2 diabetes mellitus with hyperglycemia; L03.115 Cellulitis of right lower limb; L02.611 Cutaneous abscess of right foot; I10 Essential (primary) hypertension; Z86.718 Personal history of other venous thrombosis and embolism; Z87.891 Personal history of nicotine dependence; Z79.4 Long term (current) use of insulin
CPT/HCPCS: 36415; 80048; 80053; 80202; 82962; 83036; 85025; 85610; 85651; 85730; 86140; 87070; 87205; 97803; 99285; J1815; S5561

== ENCOUNTER → 2018-03-15 | Emergency (ER) | payer OTHER ==
[~2018-03-15] VITALS: Ht 185.4 cm; Wt 95.3 kg
[~2018-03-15] MED LIST changes: +AUGMENTIN 875-1 EAC1 ORAL; +DOXYCYCLINE HY100 M2 PO; +GLUCOTROL10 MG ORAL; +HYDROXYZINE HCL10 M1 PO; +IBUPROFEN600 MG ORAL; +LEVEMIR FL100 UNIT/2 SQ; +METOPROLOL TART50 MG ORAL; +NORVASC5 MG ORAL; +NOVOLOG100 UNITS1 SUBQ; +PERMETHRIN60 GM TOPIC
[2018-03-15 12:06] VITALS: BP 138/85
[2018-03-15 12:52] VITALS: BP 138/85
--- NOTE | 2018-03-18 07:18 | Emergency Room Report ---
History of Present Illness General Chief Complaint: Skin Rash/Abscess Source: Patient Present Illness HPI Patient is a 52-year-old male presented after increased skin rash. Patient gradual onset of symptoms. The patient noted have increased itching primarily to his lower extremities as well as his penis. Patient states that insects have been biting them. He denies any fever. He reports having contact with similar symptoms. He had prior history of diabetes as well as foot ulcers. He denies any fever. Allergies: Coded Allergies: No Known Allergies (Unverified , 03/15/18) Patient History Past Medical History: see triage record Reviewed Nursing Documentation: PMH: Agreed; PSxH: Agreed Nursing Documentation-PMH Past Medical History: No History, Except For Hx Hypertension: Yes Hx Diabetes: Yes Hx Cancer: No Hx Gastrointestinal Problems: No Hx Neurological Problems: No Review of Systems All Other Systems: negative except mentioned in HPI Physical Exam Vital Signs Date Time Temp Pulse Resp B/P (MAP) Pulse Ox O2 Delivery O2 Flow Rate FiO2 03/15/18 11:29 98.1 65 15 138/85 100 Room Air 98.1 General Appearance: well appearing, no apparent distress, alert, GCS 15 Head: normocephalic, atraumatic ENT: hearing grossly normal, normal voice Neck: full range of motion, supple Respiratory: no respiratory distress, speaking full sentences Musculoskeletal: no calf tenderness Neurologic: normal inspection, alert, normal gait Psychiatric: mood/affect normal Skin: other - multiple excoriated skin lesions Medical Decision Making Diagnostic Impression: Primary Impression: Rash ER Course Patient presented for skin rash. Differential diagnosis included was not limited to Palmer-Ayad syndrome, scabies, erythema multiforme, contact dermatitis. Patient's benign exam and does not appear to require any further imaging or laboratory testing at this time. The patient is advised to follow up with primary care doctor in 1-2 days.The patient was given prescription for Elimite cream. Patient is advised to return if any worsening condition or if any changes in status that are concerning. This report is dictated with [employer] carpet yarn winder operator software which may occasionally lead to discrepancies related to use of this software. Last Vital Signs Date Time Temp Pulse Resp B/P (MAP) Pulse Ox O2 Delivery O2 Flow Rate FiO2 03/15/18 12:52 98.1 87 15 138/85 100 Room Air 98.1 Status: improved Disposition: HOME, SELF-CARE Condition: Stable Scripts Hydroxyzine Hcl (HYDROXYZINE HCL) 10 Mg Tablet 10 MG PO Q6HR, #30 TAB Prov: Ernesto Gonzalez MD 03/15/18 Permethrin* (ELIMITE*) 60 Gm Cream..g. 1 APPLIC TOPIC ONCE, #60 TUBE 0 Refills Apply cream from head to toe; leave on for 8-14 hours before washing off with water Prov: Ernesto Gonzalez MD 03/15/18 Referrals: NON PHYSICIAN (PCP) Patient Instructions: Ernesto Kapoor MD Mar 18, 2018 07:18
== END | disposition home or self-care (01) ==
LOC: EMR 12:40
DX: R21 Rash and other nonspecific skin eruption (principal); E11.9 Type 2 diabetes mellitus without complications; I10 Essential (primary) hypertension
CPT/HCPCS: 99283

== ENCOUNTER 2018-05-28 13:54 | Emergency (ER) | payer OTHER ==
[~2018-05-28] VITALS: Ht 193 cm; Wt 86.2 kg
[~2018-05-28 13:54] MED LIST changes: +ELIQUIS2.5 MG ORAL
[2018-05-28 14:20] VITALS: BP 148/75
[2018-05-28] MEDS ORDERED: BACTRIM DS TAB1 EAC1 ORAL (14:35)
[2018-05-28] MEDS ORDERED: AUGMENTIN 875-1 EAC1 ORAL (14:35)
[2018-05-28 14:41] VITALS: BP 148/75
--- NOTE | 2018-05-28 15:43 | Emergency Room Report ---
History of Present Illness General Chief Complaint: General Complaint Source: Patient Present Illness HPI Patient 52-year-old male who presented after increased drainage from his left foot. Patient prior history of the lower extremity DVT. He is currently on Elliquis. The patient recent hospitalization for osteomyelitis. Patient was seen by airplane cover maker to remove some skin to the left foot. The patient denies any fever. He denies any severe pain.Patient denies any abnormal blood sugars.The patient was noted to have home health arranged by primary physician Allergies: Coded Allergies: No Known Allergies (Unverified , 04/25/18) Patient History Past Medical History: see triage record Reviewed Nursing Documentation: PMH: Agreed; PSxH: Agreed Nursing Documentation-PMH Past Medical History: No History, Except For Hx Cardiac Problems: Yes - DVT on left leg Hx Hypertension: Yes Hx Diabetes: Yes Hx Cancer: No Hx Gastrointestinal Problems: No Hx Neurological Problems: No Physical Exam Vital Signs Date Time Temp Pulse Resp B/P (MAP) Pulse Ox O2 Delivery O2 Flow Rate FiO2 05/28/18 14:03 98.6 81 18 148/75 100 Room Air General Appearance: well appearing, no apparent distress, alert, GCS 15, Chronically Ill Head: normocephalic, atraumatic ENT: hearing grossly normal, normal voice Neck: full range of motion, supple Respiratory: no respiratory distress, speaking full sentences Cardiovascular #1: normal inspection Gastrointestinal: normal inspection Musculoskeletal: no calf tenderness, other - minimal swelling to pad of left foot without erythema Neurologic: normal inspection, alert, oriented x3, responsive, business quality assurance analyst III-XII nml as tested, normal gait Psychiatric: normal inspection, mood/affect normal Skin: no rash Medical Decision Making Diagnostic Impression: Primary Impression: Diabetic foot ulcer ER Course Patient presented for the left lower extremity wound check. The patient's wound appears to be minimally infected but has a prior history of osteomyelitis. Patient will be given prescription for antibiotics. The patient presented vascular intact with good distal pulses and good perfusion. The PICC line services were unavailable today and patient does not require any IV antibiotics at this time. The patient is advised to return if PICC line placement is needed on Wednesday. The patient is advised to follow up with primary care doctor in 2 days. Patient is advised to return if any worsening condition or if any changes in status that are concerning. This report is dictated with [employer] at[employer] java developer software which may occasionally lead to discrepancies related to use of this software. Last Vital Signs Date Time Temp Pulse Resp B/P (MAP) Pulse Ox O2 Delivery O2 Flow Rate FiO2 05/28/18 14:41 98.6 81 18 148/75 100 Room Air Status: improved Disposition: HOME, SELF-CARE Condition: Stable Scripts Trimethoprim/Sulfamethoxazole 160/800* (BACTRIM DS TABLET*) 1 Each Tablet 1 TAB ORAL Q12H, #14 TAB 0 Refills Prov: Ernesto Gonzalez MD 05/28/18 Amoxicillin/Potassium Clav 875-125* (AUGMENTIN 875-125 TABLET*) 1 Each Tablet 1 TAB ORAL TWICE A DAY, #14 TAB Prov: Ernesto Gonzalez MD 05/28/18 Referrals: NON PHYSICIAN (PCP) Patient Instructions: Diabetes and Foot Care Ernesto Gonzalez MD May 28, 2018 15:43
== END 2018-05-28 14:43 | disposition home or self-care (01) ==
LOC: EMR 14:32
DX: E11.621 Type 2 diabetes mellitus with foot ulcer (principal); L97.529 Non-pressure chronic ulcer of other part of left foot with unspecified severity; I10 Essential (primary) hypertension; Z86.718 Personal history of other venous thrombosis and embolism; Z79.01 Long term (current) use of anticoagulants
CPT/HCPCS: 99283

== ENCOUNTER 2018-06-05 12:48 | Emergency (ER) | payer OTHER ==
[~2018-06-05] VITALS: Ht 193 cm; Wt 95.3 kg
[~2018-06-05 12:48] MED LIST changes: +BACTRIM DS TAB1 EAC1 ORAL
[2018-06-05 13:09] VITALS: BP 146/78
--- NOTE | 2018-06-05 13:12 | Emergency Room Report ---
History of Present Illness General Chief Complaint: Medication Refill Source: Patient Present Illness HPI 52-year-old male with history of DVT and foot ulcer also be tobacco smoker here for refill of his medication post DVT and infection of the foot ulcer. Patient had the DVT 2 months ago and is on a liquids 2.5 mg 4 times daily. Patient also had callus removal from the left foot and had infection was prescribed Augmentin and Bactrim DS for 7 days twice a day. Patient claims that he called his primary care provider and was told that he needs to come to the ER for refill of antibiotics and umbilicus as his PCP is not in town. Denies fever/ chills/SOB/chest pain. Patient has sensation and complete strength in the affected foot.denies calf tenderness. Patient has appointment with his primary care provider discontinued denies pain, tingling, numbness Allergies: Coded Allergies: No Known Allergies (Unverified , 04/25/18) Patient History Past Medical History: see triage record Past Surgical History: none Pertinent Family History: none Immunizations: UTD Reviewed Nursing Documentation: PMH: Agreed; PSxH: Agreed Nursing Documentation-PMH Past Medical History: No History, Except For Hx Cardiac Problems: Yes - DVT on left leg Hx Hypertension: Yes Hx Diabetes: Yes Hx Cancer: No Hx Gastrointestinal Problems: No Hx Neurological Problems: No Review of Systems All Other Systems: negative except mentioned in HPI Physical Exam Vital Signs Date Time Temp Pulse Resp B/P (MAP) Pulse Ox O2 Delivery O2 Flow Rate FiO2 06/05/18 12:52 98.2 72 18 146/78 99 Room Air Sp02 EP Interpretation: reviewed, normal General Appearance: normal inspection, well appearing, no apparent distress, alert, GCS 15 Head: normocephalic Eyes: bilateral eye normal inspection, bilateral eye PERRL ENT: normal ENT inspection Neck: normal inspection, supple Respiratory: normal inspection, chest non-tender, normal breath sounds, no rhonchi, no retraction, no wheezing Cardiovascular #1: normal inspection, regular rate, rhythm, no edema, no gallop , no murmur, no rub Cardiovascular #2: 2+ dorsalis pedis (R), 2+ dorsalis pedis (L) Gastrointestinal: normal inspection, soft, no mass Rectal: deferred Genitourinary: deferred Musculoskeletal: normal range of motion, non-tender, no calf tenderness, other - bones and left plantar foot healing Neurologic: normal inspection, alert, oriented x3, responsive Psychiatric: normal inspection, judgement/insight normal Skin: warm/dry, well hydrated, other - Healing wound and left plantar foot Lymphatic: normal inspection, no adenopathy Procedures Critical Care Time Critical Care Time Wound dressing was changed Medical Decision Making PA Attestation his diagnoses and treatment plans are reviewed and discussed with my supervising physician Dr. Charles Diagnostic Impression: Primary Impression: Encounter for medication refill Additional Impressions: DVT (deep venous thrombosis) Wound of foot ER Course 52-year-old male with history of DVT and foot ulcer also be tobacco smoker here for refill of his medication post DVT and infection of the foot ulcer. Patient had the DVT 2 months ago and is on a liquids 2.5 mg 4 times daily. Patient also had callus removal from the left foot and had infection was prescribed Augmentin and Bactrim DS for 7 days twice a day. Patient claims that he called his primary care provider and was told that he needs to come to the ER for refill of antibiotics and umbilicus as his PCP is not in town. Denies fever/ chills/SOB/chest pain. Patient has sensation and complete strength in the affected foot.denies calf tenderness. Patient has appointment with his primary care provider discontinued denies pain, tingling, numbness Ddx considered but are not limited to healing foot ulcer, encounter for medication refill, infected foot ulcer, DVT Vital signs: are WNL, pt. is afebrile H&PE are most consistent with medication refill and healing foot ulcer ORDERS: " is 2.5 mg 4 times a day 10 days, Augmentin and Bactrim DS twice a day 7 days ED INTERVENTIONS: wound dressing DISCHARGE: At this time pt. is stable for d/c to home. Will provide printed patient care instructions, and any necessary prescriptions. Care plan and follow up instructions have been discussed with the patient prior to discharge. follow-up with PCP for more refills of medication and assessment Last Vital Signs Date Time Temp Pulse Resp B/P (MAP) Pulse Ox O2 Delivery O2 Flow Rate FiO2 06/05/18 13:09 98.2 18 146/78 99 Room Air 06/05/18 12:52 72 Disposition: HOME, SELF-CARE Condition: Stable Scripts Trimethoprim/Sulfamethoxazole (Bactrim Ds Tablet) 1 Each Tablet 1 TAB ORAL TWICE A DAY for 7 Days, #14 TAB Prov: Fe Pagan 06/05/18 Amoxicillin/Potassium Clav 875-125* (AUGMENTIN 875-125 TABLET*) 1 Each Tablet 1 TAB ORAL TWICE A DAY for 7 Days, #14 TAB Prov: Fe Pagan 06/05/18 Apixaban (ELIQUIS) 2.5 Mg Tablet 2.5 MG PO QID for 10 Days, #40 TAB Prov: Fe Pagan 06/05/18 Patient Instructions: Deep Vein Thrombosis, Medicine Refill at the Emergency Department, Skin Ulcer Additional Instructions: Take medication as direct, follow-up with the primary care provider for further assessment, take liquids as directed this tenderness in the calf, chest pain going to the emergency room immediately Fe Pagan Jun 05, 2018 13:12
[2018-06-05] MEDS ORDERED: AUGMENTIN 875-1 EAC1 ORAL (13:14)
[2018-06-05] MEDS ORDERED: BACTRIM-DS1 EA ORAL (13:14)
[2018-06-05] MEDS ORDERED: ELIQUIS2.5 MG PO (13:14)
[2018-06-05 13:23] VITALS: BP 146/78
== END 2018-06-05 13:51 | disposition home or self-care (01) ==
LOC: EMR 13:00
DX: Z76.0 Encounter for issue of repeat prescription (principal); L97.529 Non-pressure chronic ulcer of other part of left foot with unspecified severity; Z86.718 Personal history of other venous thrombosis and embolism; I10 Essential (primary) hypertension; E11.9 Type 2 diabetes mellitus without complications; Z72.0 Tobacco use
CPT/HCPCS: 99283

== ENCOUNTER → 2018-06-23 | Emergency (ER) | payer OTHER ==
[~2018-06-23] VITALS: Ht 193 cm; Wt 95.3 kg
[~2018-06-23] MED LIST changes: +ATARAX25 MG ORAL; +BACTRIM-DS1 EA ORAL; +ELIQUIS2.5 MG PO; +QUETIAPINE FUM100 MG ORAL
[2018-06-23 12:08] VITALS: BP 170/88
--- NOTE | 2018-06-23 13:03 | Emergency Room Report ---
History of Present Illness General Chief Complaint: General Complaint Source: Patient Present Illness HPI The patient is a 52-year-old male presented after increased generalized skin rash and itchiness. Patient reports having recently been treated for body lice. The patient was given permethrin prescription. The patient was having increased itchiness to several body areas. He denies any fever. Patient had been noted be on antibiotics and had been having intermittent body rash. Allergies: Coded Allergies: No Known Allergies (Unverified , 04/25/18) Patient History Past Medical History: see triage record Reviewed Nursing Documentation: PMH: Agreed; PSxH: Agreed Nursing Documentation-PMH Past Medical History: No History, Except For Hx Cardiac Problems: Yes - DVT on left leg Hx Hypertension: Yes Hx Diabetes: Yes Hx Cancer: No Hx Gastrointestinal Problems: No Hx Neurological Problems: No Review of Systems All Other Systems: negative except mentioned in HPI Physical Exam Vital Signs Date Time Temp Pulse Resp B/P (MAP) Pulse Ox O2 Delivery O2 Flow Rate FiO2 06/23/18 11:25 97.9 89 18 170/88 100 Room Air General Appearance: well appearing, no apparent distress, alert, GCS 15 Head: normocephalic, atraumatic ENT: hearing grossly normal, normal voice Neck: full range of motion, supple Respiratory: no respiratory distress, speaking full sentences Cardiovascular #1: normal inspection Musculoskeletal: normal inspection Neurologic: normal inspection, alert, oriented x3, normal gait Psychiatric: mood/affect normal Skin: no rash Medical Decision Making Diagnostic Impression: Primary Impression: Rash and other nonspecific skin eruption ER Course Patient presented for skin rash. Differential diagnosis included was not limited to by lice , scabies, neuropathy, among others. The patient appeared to have no krystian lesions noted the patient is given prescription for permethrin cream. He is advised to stop using capsaicin. The patient is advised to follow -up with his primary care physician for recheck and to wash the clothing carefully.The patient is given prescription for Seroquell for sleep as he states he's been having insomnia Last Vital Signs Date Time Temp Pulse Resp B/P (MAP) Pulse Ox O2 Delivery O2 Flow Rate FiO2 06/23/18 12:08 97.9 84 18 170/88 100 Room Air Status: improved Disposition: HOME, SELF-CARE Condition: Stable Scripts Quetiapine Fumarate* (SEROQUEL*) 100 Mg Tablet 100 MG ORAL QHS for insomnia, #10 TAB Prov: Ernesto Gonzalez MD 06/23/18 Permethrin* (ELIMITE*) 60 Gm Cream..g. 1 APPLIC TOPIC ONCE, #1 TUBE 0 Refills Apply cream from head to toe; leave on for 8-14 hours before washing off with water Prov: Ernesto Gonzalez MD 06/23/18 Hydroxyzine HCl (Hydroxyzine HCl) 25 Mg Tablet 25 MG ORAL FOUR TIMES A DAY for itching, #20 TAB Prov: Ernesto Gonzalez MD 06/23/18 Referrals: [facility],REFERRING (PCP) Patient Instructions: Ernesto Kapoor MD Jun 23, 2018 13:03
== END | disposition home or self-care (01) ==
LOC: EMR 11:48
DX: R21 Rash and other nonspecific skin eruption (principal); I10 Essential (primary) hypertension; E11.9 Type 2 diabetes mellitus without complications; Z86.718 Personal history of other venous thrombosis and embolism
CPT/HCPCS: 99283

== ENCOUNTER 2018-06-24 12:34 | Emergency (ER) | payer OTHER ==
[~2018-06-24] VITALS: Ht 193 cm; Wt 95.3 kg
[2018-06-24] MEDS ORDERED: ELIQUIS2.5 MG PO (13:09)
--- NOTE | 2018-06-24 13:10 | Emergency Room Report ---
History of Present Illness General Chief Complaint: Medication Refill Source: Patient Present Illness HPI 52 yo male patient presents ER requesting refill of that the medication. Reports history of DVT in his left leg. States that he takes Eloquist 2.5 mg 4 times daily. Reports was seen here yesterday for rash. denies calf pain. Denies fever, chest pain, shortness of breath. Allergies: Coded Allergies: No Known Allergies (Unverified , 04/25/18) Patient History Past Medical History: see triage record Reviewed Nursing Documentation: PMH: Agreed; PSxH: Agreed Nursing Documentation-PMH Past Medical History: No History, Except For Hx Cardiac Problems: Yes - DVT on left leg Hx Hypertension: Yes Hx Diabetes: Yes Hx Cancer: No Hx Gastrointestinal Problems: No Hx Neurological Problems: No Review of Systems All Other Systems: negative except mentioned in HPI Physical Exam Vital Signs Date Time Temp Pulse Resp B/P (MAP) Pulse Ox O2 Delivery O2 Flow Rate FiO2 06/24/18 12:54 98.2 83 18 154/79 100 Room Air Sp02 EP Interpretation: reviewed, normal General Appearance: well appearing, no apparent distress, alert, GCS 15, non- toxic Head: normocephalic, atraumatic Eyes: bilateral eye normal inspection, bilateral eye PERRL ENT: hearing grossly normal, normal pharynx, no angioedema, normal voice, uvula midline, moist mucus membranes Neck: full range of motion Respiratory: lungs clear, normal breath sounds, no rhonchi, no respiratory distress, no accessory muscle use, no wheezing, speaking full sentences Cardiovascular #1: regular rate, rhythm, no edema Musculoskeletal: back normal, digits/nails normal, gait/station normal, normal range of motion, non-tender, no calf tenderness, Lucia's Sign negative Neurologic: alert, oriented x3, responsive, motor strength/tone normal, sensory intact Psychiatric: mood/affect normal Skin: no rash Medical Decision Making PA Attestation Dr. Gonzalez is my supervising Physician whom patient management has been discussed with. Diagnostic Impression: Primary Impression: Encounter for medication refill ER Course Pt. presents to the ED requesting prescription refill. Multiple differentials were considered. Vital signs: are WNL, pt. is afebrile ORDERS: PE benign Informed patient would provide refill of medication. Discuss with Dr. Gonzalez who saw patient yesterday, [place] for refill of medication. Will provide refill of medication. Contact primary care provider for further treatment. Informed patient ER cannot provide refills in the future; followup, management and prescription of long-term medications must be performed by primary care provider. DISCHARGE: Rx provided for eloquis At this time pt is stable for d/c to home. Patient is resting comfortably, in no acute distress, nontoxic appearing, talking without difficulty. Patient to take medications as instructed Will provide with patient care instructions and any necessary prescriptions. Care plan and follow-up instructions provided. Patient instructed to follow-up with primary care provider in 3 - 5 days. Patient questions asked and answered. Patient reports understanding and agreement to treatment plan. ER precautions given. Patient instructed to return to ER immediately for any new or worsening of symptoms including but not limited to increasing SOB, persistent fever. - Please note that this Emergency Department Report was dictated using Primary Datacom[employer] assembler technology software, occasionally this can lead to erroneous entry secondary to interpretation by the dictation equipment. Last Vital Signs Date Time Temp Pulse Resp B/P (MAP) Pulse Ox O2 Delivery O2 Flow Rate FiO2 06/24/18 12:54 98.2 83 18 154/79 100 Room Air Disposition: HOME, SELF-CARE Condition: Stable Scripts Apixaban (ELIQUIS) 2.5 Mg Tablet 2.5 MG PO QID for 14 Days, TAB Prov: Terence Montenegro 06/24/18 Patient Instructions: Medicine Refill at the Emergency Department Additional Instructions: Followup with primary care provider in 3 -5 days. discuss further management and treatment at that time, discussed plan to avoid running out of blood thinner medication. Take medications as directed. Patient questions asked and answered. ER precautions given, patient instructed to return to ER immediately for any new or worsening of symptoms. Terence Montenegro Jun 24, 2018 13:09
[2018-06-24 14:20] VITALS: BP 154/79
[2018-06-24 14:23] VITALS: BP 154/79
== END 2018-06-24 14:23 | disposition home or self-care (01) ==
LOC: EMR 13:20
DX: Z76.0 Encounter for issue of repeat prescription (principal); Z86.718 Personal history of other venous thrombosis and embolism; Z79.01 Long term (current) use of anticoagulants; I10 Essential (primary) hypertension; E11.9 Type 2 diabetes mellitus without complications
CPT/HCPCS: 99283

== ENCOUNTER 2018-08-30 09:37 | Emergency (ER) | payer OTHER ==
[~2018-08-30] VITALS: Ht 193 cm; Wt 98.9 kg
[2018-08-30 09:41] VITALS: BP 155/81
--- NOTE | 2018-08-30 10:00 | NUR ---
ED Nurse Note: Pt arrived to ED for med-refill. Uon arrival Pt stated that his BS was "alittle elevated" and he needed his insukin. Pt denies SOB or pain. Pt is AAox4 respirations are even and unlabored. FAm at bedside.
[2018-08-30] MEDS ORDERED: NOVOLOG100 UNITS1 (10:02)
[2018-08-30] MEDS ORDERED: Insulin Human Regular 100units/ml 3ml SUBQ ONE (10:15)
[2018-08-30 10:39] LABS: BASOPHILS % (AUTO) 1.4 % (0.0-2.0); EOSINOPHILS % (AUTO) 3.7 % (0.0-3.0); HEMATOCRIT 39.8 % (42.0-52.0); HEMOGLOBIN 13.2 G/DL (14.2-18.0); MEAN CORPUSCULAR VOLUME 96 FL (80-99); MONOCYTES % (AUTO) 10.2 % (1.0-10.0); NEUTROPHILS % (AUTO) 54.7 % (45.0-75.0); PLATELET COUNT 299 K/UL (150-450); RED BLOOD COUNT 4.16 M/UL (4.70-6.10); RED CELL DISTRIBUTION WIDTH 13.6 % (11.6-14.8); WHITE BLOOD COUNT 8.4 K/UL (4.8-10.8)
--- NOTE | 2018-08-30 10:48 | Emergency Room Report ---
History of Present Illness General Chief Complaint: Abnormal Labs Source: Patient Present Illness HPI Patient has a history of diabetes. Patient has been out of his insulin for 3 days. Last night patient a large amount of cookies and this morning noted a sugar that was critically high. Patient came here for further evaluation. Patient denies any fever nausea vomiting diarrhea chills. Patient denies any chest pain shortness of breath. No other modifying factors. No other associated signs and symptoms. No other complaints were noted. Allergies: Coded Allergies: No Known Allergies (Unverified , 08/30/18) Patient History Past Medical History: DM, HTN, CAD, other - Left lower extremity D Pertinent Family History: none Social History: Denies: smoking, alcohol use, drug use Reviewed Nursing Documentation: PMH: Agreed; PSxH: Agreed Nursing Documentation-PMH Past Medical History: No History, Except For Hx Cardiac Problems: Yes - DVT on left leg Hx Hypertension: Yes Hx Diabetes: Yes Hx Cancer: No Hx Gastrointestinal Problems: No Hx Neurological Problems: No Review of Systems All Other Systems: negative except mentioned in HPI Physical Exam Vital Signs Date Time Temp Pulse Resp B/P (MAP) Pulse Ox O2 Delivery O2 Flow Rate FiO2 08/30/18 09:41 98.1 99 16 155/81 94 Room Air Sp02 EP Interpretation: reviewed, normal General Appearance: normal inspection, well appearing, no apparent distress, alert Head: atraumatic Eyes: bilateral eye normal inspection ENT: normal ENT inspection, hearing grossly normal, normal voice Neck: normal inspection, full range of motion, supple, no bony tend Respiratory: normal inspection, lungs clear, normal breath sounds, no respiratory distress, no retraction, no wheezing Cardiovascular #1: regular rate, rhythm, no edema Gastrointestinal: normal inspection, normal bowel sounds, non tender, soft, no guarding, no hernia Genitourinary: no CVA tenderness Musculoskeletal: normal inspection, back normal, normal range of motion Neurologic: normal inspection, alert, responsive, speech normal Psychiatric: normal inspection, judgement/insight normal, mood/affect normal Skin: normal inspection, normal color, no rash Medical Decision Making Diagnostic Impression: Primary Impression: Diabetes Additional Impressions: Hyperglycemia Dietary noncompliance Noncompliance with medication regimen ER Course Patient presents emergency department today with elevated glucose. Differential diagnoses include DKA, hyperglycemia, dietary noncompliance, medication noncompliance just name a few.Given the severity of the patient's presentation I felt this is a highly complex patient. This patient required extensive workup. Patient laboratory workup shows an elevated glucose but no evidence DKA. Patient was given fluids insulin subcutaneous as well as IV patient glucose improved significantly. Patient was advised to take his medications as instructed. Patient was given a refill on his insulin.Patient is advised to follow up with primary doctor in 2-3 days and return the emergency room for any worsening symptoms and as needed. Labs Test 08/30/18 10:17 White Blood Count 8.4 K/UL (4.8-10.8) Red Blood Count 4.16 M/UL (4.70-6.10) Hemoglobin 13.2 G/DL (14.2-18.0) Hematocrit 39.8 % (42.0-52.0) Mean Corpuscular Volume 96 FL (80-99) Mean Corpuscular Hemoglobin 31.6 PG (27.0-31.0) Mean Corpuscular Hemoglobin Concent 33.0 G/DL (32.0-36.0) Red Cell Distribution Width 13.6 % (11.6-14.8) Platelet Count 299 K/UL (150-450) Mean Platelet Volume 7.5 FL (6.5-10.1) Neutrophils (%) (Auto) 54.7 % (45.0-75.0) Lymphocytes (%) (Auto) 30.0 % (20.0-45.0) Monocytes (%) (Auto) 10.2 % (1.0-10.0) Eosinophils (%) (Auto) 3.7 % (0.0-3.0) Basophils (%) (Auto) 1.4 % (0.0-2.0) Sodium Level 133 MMOL/L (136-145) Potassium Level 4.6 MMOL/L (3.5-5.1) Chloride Level 97 MMOL/L (98-107) Carbon Dioxide Level 27 MMOL/L (21-32) Anion Gap 9 mmol/L (5-15) Blood Urea Nitrogen 19 mg/dL (7-18) Creatinine 1.5 MG/DL (0.55-1.30) Estimat Glomerular Filtration Rate 59.1 mL/min (>60) Glucose Level 584 MG/DL (74-106) Calcium Level 10.3 MG/DL (8.5-10.1) Total Bilirubin 0.5 MG/DL (0.2-1.0) Aspartate Amino Transf (AST/SGOT) 10 U/L (15-37) Alanine Aminotransferase (ALT/SGPT) 25 U/L (12-78) Alkaline Phosphatase 116 U/L (46-116) Total Protein 8.1 G/DL (6.4-8.2) Albumin 4.0 G/DL (3.4-5.0) Globulin 4.1 g/dL Albumin/Globulin Ratio 1.0 (1.0-2.7) Lipase 214 U/L (73-393) Last Vital Signs Date Time Temp Pulse Resp B/P (MAP) Pulse Ox O2 Delivery O2 Flow Rate FiO2 08/30/18 09:41 98.1 99 16 155/81 94 Room Air Status: improved Disposition: HOME, SELF-CARE Condition: Stable Scripts [basalgar] No Conflict Check Prov: Kvng Silva MD 08/30/18 Kvng Silva MD Aug 30, 2018 10:48
[2018-08-30 10:50] LABS: ALANINE AMINOTRANSFERASE 25 U/L (12-78); ALKALINE PHOSPHATASE 116 U/L (46-116); ANION GAP 9 mmol/L (5-15); ASPARTATE AMINO TRANSFERASE 10 U/L (15-37); BILIRUBIN,TOTAL 0.5 MG/DL (0.2-1.0); BLOOD UREA NITROGEN 19 mg/dL (7-18); CALCIUM 10.3 MG/DL (8.5-10.1); CARBON DIOXIDE 27 MMOL/L (21-32); CHLORIDE 97 MMOL/L (98-107); CREATININE 1.5 MG/DL (0.55-1.30); POTASSIUM 4.6 MMOL/L (3.5-5.1); SODIUM 133 MMOL/L (136-145)
--- NOTE | 2018-08-30 11:22 | NUR ---
ED Nurse Note: ERMD notified regarding his second BS reading, critically high, pt vss will cont monitor.
[2018-08-30] MEDS ORDERED: Insulin Human Regular 100units/ml 3ml IV ONE (11:30)
[2018-08-30] MEDS ORDERED: BASALGAR (12:04)
[2018-08-30 12:08] VITALS: BP 155/81
--- NOTE | 2018-08-30 12:08 | NUR ---
ED Nurse Note: Pt. AAOx4. ambulatory. left with steady gait and with all his belongings. Pt. education done regarding d/c papers and instructions. Pt. verbalized the understanding. VSS. ID armband removed
--- NOTE | 2018-08-30 12:12 | NUR ---
ED Nurse Note: ERMD notified regarding BS [id number].
== END 2018-08-30 12:08 | disposition home or self-care (01) ==
LOC: EMR 10:40
DX: E11.65 Type 2 diabetes mellitus with hyperglycemia (principal); Z91.14 Patient's other noncompliance with medication regimen; I10 Essential (primary) hypertension; Z86.718 Personal history of other venous thrombosis and embolism; I25.10 Atherosclerotic heart disease of native coronary artery without angina pectoris
CPT/HCPCS: 36415; 80053; 83690; 85025; 96361; 96372; 96374; 99284; J1815

== ENCOUNTER 2018-12-14 14:03 | Emergency (ER) | payer OTHER ==
[~2018-12-14] VITALS: Ht 193 cm; Wt 96.2 kg
[~2018-12-14 14:03] MED LIST changes: +BASALGAR; +NOVOLOG100 UNITS1
[2018-12-14] MEDS ORDERED: BACITRACIN15 GM TOPIC (14:40)
[2018-12-14] MEDS ORDERED: PERMETHRIN60 GM TOPIC (14:40)
[2018-12-14 15:07] VITALS: BP 138/71
[2018-12-14 15:08] VITALS: BP 135/71
--- NOTE | 2018-12-14 15:10 | NUR ---
ED Nurse Note: edy ibarra done no further orders pt given aci and script verbalized understanding ambulated out of er with strond and steady gait.
--- NOTE | 2018-12-14 18:19 | Emergency Room Report ---
History of Present Illness General Chief Complaint: Skin Rash/Abscess Source: Patient Present Illness HPI 53-year-old male presents to ED for evaluation. Complaining of rash to groin area for the last 3 days. Was prescribed permethrin by his PMD. States he was combining the permethrin cream with ammonium cream and states that a crated burning sensation to his thighs. Pain is burning, 5 out of 10, nonradiating. Denies fevers or chills. Denies any discharge. No other aggravating relieving factors. Denies any other associated symptoms. Allergies: Coded Allergies: No Known Allergies (Unverified , 08/30/18) Patient History Past Medical History: HTN, other - DVT Past Surgical History: none Pertinent Family History: none Social History: Denies: smoking, alcohol use, drug use Immunizations: UTD Reviewed Nursing Documentation: PMH: Agreed; PSxH: Agreed Nursing Documentation-PMH Past Medical History: No History, Except For Hx Cardiac Problems: Yes - DVT on left leg Hx Hypertension: Yes Hx Diabetes: Yes Hx Cancer: No Hx Gastrointestinal Problems: No Hx Neurological Problems: No Review of Systems All Other Systems: negative except mentioned in HPI Physical Exam Vital Signs Date Time Temp Pulse Resp B/P (MAP) Pulse Ox O2 Delivery O2 Flow Rate FiO2 12/14/18 14:12 97.9 63 16 95 Room Air 12/14/18 15:07 138/71 Sp02 EP Interpretation: reviewed, normal General Appearance: no apparent distress, alert, GCS 15, non-toxic Head: normocephalic Eyes: bilateral eye normal inspection, bilateral eye PERRL ENT: normal ENT inspection Neck: normal inspection Respiratory: normal inspection Cardiovascular #1: normal inspection Gastrointestinal: normal inspection Rectal: deferred Genitourinary: no CVA tenderness Musculoskeletal: normal inspection Neurologic: alert, oriented x3, responsive, motor strength/tone normal, sensory intact, speech normal Psychiatric: normal inspection Skin: rash - exfoliated peeling skin to inguinal area. erythematous. no induration or discharge Lymphatic: normal inspection Medical Decision Making Diagnostic Impression: Primary Impression: Rash ER Course Hospital Course 53-year-old male presents to ED with rash to groin Differential diagnoses include: Cellulitis, dermatitis, insect bite, abscess Clinical course Patient placed on stretcher. After initial history, physical exam reveals a middle aged male in no acute distress. On exam there is a peeling rash noted to the inguinal area bilaterally. Somewhat erythematous. No induration or discharge Discussed with patient. Likely adverse reaction secondary to combining the permethrin with the other ointment. Recommend using permethrin alone. We'll prescribe antibiotic ointment. Patient states he has a follow-up with dermatology. Safe for discharge close outpatient follow-up Diagnosis - rash stable and discharged to home with prescription for bacitracin, permethin. Instructed to followup with PMD. Instructed return to ED if symptoms recur or worsen Last Vital Signs Date Time Temp Pulse Resp B/P (MAP) Pulse Ox O2 Delivery O2 Flow Rate FiO2 12/14/18 15:08 97.9 89 16 135/71 95 Room Air Status: improved Disposition: HOME, SELF-CARE Condition: Stable Scripts Bacitracin (Bacitracin) 28.4 Gm Oint...g. 1 APPLIC TOPIC THREE TIMES A DAY, #28.4 GM Prov: Damian Montejo MD 12/14/18 Permethrin* (ELIMITE*) 60 Gm Cream..g. 1 APPLIC TOPIC ONCE, #60 TUBE 0 Refills Apply cream from head to toe; leave on for 8-14 hours before washing off with water Prov: Damian Montejo MD 12/14/18 Referrals: [facility],REFERRING (PCP) Karime Edwards [facility] Patient Instructions: Damian Coleman MD December 14, 2018 18:19
== END 2018-12-14 14:55 | disposition home or self-care (01) ==
LOC: EMR 14:30
DX: R21 Rash and other nonspecific skin eruption (principal); I10 Essential (primary) hypertension; E11.9 Type 2 diabetes mellitus without complications; Z86.718 Personal history of other venous thrombosis and embolism
CPT/HCPCS: 99282

== ENCOUNTER 2020-01-15 20:12 | Inpatient (IN) | payer OTHER ==
[~2020-01-15] VITALS: Ht 193 cm; Wt 89.9 kg
[~2020-01-15 20:12] MED LIST changes: +BACITRACIN15 GM TOPIC
[2020-01-15 20:20] VITALS: BP 141/89
--- NOTE | 2020-01-15 20:34 | Emergency Room Report ---
History of Present Illness General Chief Complaint: Wound Recheck/Suture Removal Source: Patient Present Illness HPI Patient presents with complaints of increased discomfort and swelling to the base of the left foot Patient reports that he has been followed by graphic design specialist and his primary physician may feel that the area is worsening patient was also on Cipro and reports increased size of the wound Denies any fevers or chills he does also feel there is some swelling to the left leg itself denies any recent fall or trauma patient is diabetic Allergies: Coded Allergies: No Known Allergies (Unverified , 08/30/18) COVID-19 Screening Contact w/high risk pt: No Recent Travel to affected area: No Experienced COVID-19 symptoms?: No COVID-19 Testing performed [employer] PROFESSOR: No Patient History Past Medical History: see triage record Reviewed Nursing Documentation: PMH: Agreed; PSxH: Agreed Nursing Documentation-PMH Hx Cardiac Problems: Yes - DVT on left leg Hx Hypertension: Yes Hx Diabetes: Yes Hx Cancer: No Hx Gastrointestinal Problems: No Hx Neurological Problems: No Review of Systems All Other Systems: negative except mentioned in HPI Physical Exam Vital Signs Date Time Temp Pulse Resp B/P (MAP) Pulse Ox O2 Delivery O2 Flow Rate FiO2 01/15/20 20:14 98.4 83 16 141/89 (106) 100 Room Air Sp02 EP Interpretation: reviewed, normal General Appearance: well appearing, no apparent distress Head: normocephalic, atraumatic Eyes: bilateral eye PERRL, bilateral eye EOMI ENT: hearing grossly normal, EOM grossly intact Neck: supple Respiratory: lungs clear, no respiratory distress, no retraction Cardiovascular #1: regular rate, rhythm Gastrointestinal: non tender, soft Musculoskeletal: other - Swelling noted to the left leg in the calf area patient has swelling to the foot itself, there is also open wound at the base of the foot Neurologic: alert, oriented x3 Skin: other - As above Lymphatic: normal inspection Medical Decision Making Diagnostic Impression: Primary Impression: Diabetic foot ulcer ER Course Given the history and presentation multiple differentials are in consideration Patient does have diabetes and appears to be having worsening infection of the leg and foot Patient has failed outpatient oral antibiotic therapy Blood work initiated Patient's x-ray imaging shows questionable metallic foreign body No obvious osteomyelitis patient provided with further hydration and admitted for further care Labs Test 01/16/20 05:10 01/16/20 15:50 01/18/20 03:00 White Blood Count 8.3 K/UL (4.8-10.8) Red Blood Count 3.99 M/UL (4.70-6.10) Hemoglobin 12.8 G/DL (14.2-18.0) Hematocrit 40.8 % (42.0-52.0) Mean Corpuscular Volume 102 FL (80-99) Mean Corpuscular Hemoglobin 32.1 PG (27.0-31.0) Mean Corpuscular Hemoglobin Concent 31.4 G/DL (32.0-36.0) Red Cell Distribution Width 13.4 % (11.6-14.8) Platelet Count 253 K/UL (150-450) Mean Platelet Volume 8.5 FL (6.5-10.1) Neutrophils (%) (Auto) 53.8 % (45.0-75.0) Lymphocytes (%) (Auto) 35.2 % (20.0-45.0) Monocytes (%) (Auto) 6.1 % (1.0-10.0) Eosinophils (%) (Auto) 3.6 % (0.0-3.0) Basophils (%) (Auto) 1.4 % (0.0-2.0) Sodium Level 138 MMOL/L (136-145) Potassium Level 4.4 MMOL/L (3.5-5.1) Chloride Level 105 MMOL/L (98-107) Carbon Dioxide Level 25 MMOL/L (21-32) Anion Gap 9 mmol/L (5-15) Blood Urea Nitrogen 16 mg/dL (7-18) Creatinine 1.5 MG/DL (0.55-1.30) Estimat Glomerular Filtration Rate 58.7 mL/min (>60) Glucose Level 321 MG/DL (74-106) Hemoglobin A1c 10.0 % (4.3-6.0) Calcium Level 8.8 MG/DL (8.5-10.1) Total Bilirubin 0.5 MG/DL (0.2-1.0) Aspartate Amino Transf (AST/SGOT) 18 U/L (15-37) Alanine Aminotransferase (ALT/SGPT) 20 U/L (12-78) Alkaline Phosphatase 96 U/L (46-116) Total Protein 6.8 G/DL (6.4-8.2) Albumin 3.4 G/DL (3.4-5.0) Globulin 3.4 g/dL Albumin/Globulin Ratio 1.0 (1.0-2.7) Urine Color Pale yellow Urine Appearance Clear Urine pH 5 (4.5-8.0) Urine Specific [place] 1.010 (1.005-1.035) Urine Protein Negative (NEGATIVE) Urine Glucose (UA) 4+ (NEGATIVE) Urine Ketones Negative (NEGATIVE) Urine Blood Negative (NEGATIVE) Urine Nitrite Negative (NEGATIVE) Urine Bilirubin Negative (NEGATIVE) Urine Urobilinogen Normal MG/DL (0.0-1.0) Urine Leukocyte Esterase Negative (NEGATIVE) Urine RBC 0 /HPF (0 - 0) Urine WBC 0 /HPF (0 - 0) Urine Squamous Epithelial Cells Occasional /LPF Urine Bacteria None /HPF (NONE) Vancomycin Level Trough 11.5 ug/mL (5.0-12.0) Other X-Ray Diagnostic Results Other X-Ray Diagnostic Results : X-Ray ordered: Left foot # of Views/Limited Vs Complete: 3 View Indication: Pain EP Interpretation: Yes Interpretation: no dislocation, no fractures, other - Questionable metallic foreign body mild soft tissue changes Impression: No acute disease Electronically Signed by: Mayra Salas DO Last Vital Signs Date Time Temp Pulse Resp B/P (MAP) Pulse Ox O2 Delivery O2 Flow Rate FiO2 01/15/20 20:14 98.4 83 16 141/89 (106) 100 Room Air Status: improved Disposition: ADMITTED INPATIENT Condition: Serious Mayra Salas DO Jan 15, 2020 20:34
[2020-01-15] MEDS ORDERED: Vancomycin 1 GM in NS 275 ML IVPB ONE (20:45)
[2020-01-15] MEDS ORDERED: cefTRIAXone 1 GM in NS 55 ML IVPB ONE (20:45)
[2020-01-15 21:41] LABS: BASOPHILS % (AUTO) 1.2 % (0.0-2.0); EOSINOPHILS % (AUTO) 2.5 % (0.0-3.0); HEMOGLOBIN 14.4 G/DL (14.2-18.0); LYMPHOCYTES % (AUTO) 35.4 % (20.0-45.0); MEAN CORPUSCULAR VOLUME 101 FL (80-99); MONOCYTES % (AUTO) 5.6 % (1.0-10.0); NEUTROPHILS % (AUTO) 55.2 % (45.0-75.0); PLATELET COUNT 285 K/UL (150-450); RED BLOOD COUNT 4.55 M/UL (4.70-6.10); RED CELL DISTRIBUTION WIDTH 13.6 % (11.6-14.8); WHITE BLOOD COUNT 8.8 K/UL (4.8-10.8)
[2020-01-15 21:42] LABS: ANION GAP 12 mmol/L (5-15); BLOOD UREA NITROGEN 17 mg/dL (7-18); CARBON DIOXIDE 25 MMOL/L (21-32); CHLORIDE 100 MMOL/L (98-107); CREATININE 1.7 MG/DL (0.55-1.30); POTASSIUM 4.3 MMOL/L (3.5-5.1); SODIUM 137 MMOL/L (136-145)
[2020-01-15 21:55] LABS: ALANINE AMINOTRANSFERASE 33 U/L (12-78); ALBUMIN 3.9 G/DL (3.4-5.0); ALKALINE PHOSPHATASE 111 U/L (46-116); ASPARTATE AMINO TRANSFERASE 19 U/L (15-37); BILIRUBIN,TOTAL 0.4 MG/DL (0.2-1.0); CKMB 2.1 NG/ML (0.0-3.6); CREATINE KINASE 101 U/L (26-308)
[2020-01-15 22:50] VITALS: BP 160/78
[2020-01-16] MEDS ORDERED: CIPRO500 MG PO (00:51)
[2020-01-16] MEDS ORDERED: GLIPIZIDE5 MG ORAL (00:51)
[2020-01-16 04:00] VITALS: BP 139/91
[2020-01-16] MEDS: NovoLOG Insulin Flexpen SUBQ SCH ×4 (05:46→20:05)
[2020-01-16 06:25] LABS: BASOPHILS % (AUTO) 1.4 % (0.0-2.0); EOSINOPHILS % (AUTO) 3.6 % (0.0-3.0); HEMATOCRIT 40.8 % (42.0-52.0); HEMOGLOBIN 12.8 G/DL (14.2-18.0); LYMPHOCYTES % (AUTO) 35.2 % (20.0-45.0); MEAN CORPUSCULAR VOLUME 102 FL (80-99); MONOCYTES % (AUTO) 6.1 % (1.0-10.0); NEUTROPHILS % (AUTO) 53.8 % (45.0-75.0); PLATELET COUNT 253 K/UL (150-450); RED BLOOD COUNT 3.99 M/UL (4.70-6.10); RED CELL DISTRIBUTION WIDTH 13.4 % (11.6-14.8); WHITE BLOOD COUNT 8.3 K/UL (4.8-10.8)
[2020-01-16 06:57] LABS: ALANINE AMINOTRANSFERASE 20 U/L (12-78); ALBUMIN 3.4 G/DL (3.4-5.0); ALKALINE PHOSPHATASE 96 U/L (46-116); ANION GAP 9 mmol/L (5-15); ASPARTATE AMINO TRANSFERASE 18 U/L (15-37); BILIRUBIN,TOTAL 0.5 MG/DL (0.2-1.0); BLOOD UREA NITROGEN 16 mg/dL (7-18); CALCIUM 8.8 MG/DL (8.5-10.1); CARBON DIOXIDE 25 MMOL/L (21-32); CHLORIDE 105 MMOL/L (98-107); CREATININE 1.5 MG/DL (0.55-1.30); POTASSIUM 4.4 MMOL/L (3.5-5.1); SODIUM 138 MMOL/L (136-145)
[2020-01-16 08:00] VITALS: BP 142/88
[2020-01-16 12:00] VITALS: BP 138/79
--- NOTE | 2020-01-16 12:56 | Diagnostic Imaging Report ---
EXAM: X-RAY XRAY Foot Complete L CLINICAL HISTORY: Foot pain. COMPARISON: None FINDINGS: Total of 3 views of the left foot were obtained. Alignment is anatomic. There is no fracture, bony lesions or erosions. Joint spaces are unremarkable. There is a linear metallic foreign body identified adjacent to the third proximal phalanx. Vascular calcifications noted. IMPRESSION: NO ACUTE BONY ABNORMALITY. METALLIC LINEAR FOREIGN BODY SEEN ADJACENT TO THE THIRD PROXIMAL PHALANX.
[2020-01-16 16:00] VITALS: BP 160/76
[2020-01-16 16:19] LABS: APPEARANCE,URINE CLEAR; BILIRUBIN, URINE NEGATIVE (NEGATIVE); COLOR,URINE PALE YELLOW; GLUCOSE, URINE (UA) 4+ (NEGATIVE); KETONES,URINE NEGATIVE (NEGATIVE); LEUKOCYTE ESTERASE ,URINE NEGATIVE (NEGATIVE); NITRITE,URINE NEGATIVE (NEGATIVE); PH,URINE 5 (4.5-8.0); PROTEIN,URINE NEGATIVE (NEGATIVE); UROBILINOGEN,URINE NORMAL MG/DL (0.0-1.0)
[2020-01-16] MEDS: Vancomycin 1gm/D5W 275ml IVPB SCH ×2 (16:26)
[2020-01-16 20:00] VITALS: BP 158/89
--- NOTE | 2020-01-16 21:00 | Consultation ---
DATE OF CONSULTATION: 01/16/2020 INFECTIOUS DISEASE CONSULTATION CONSULTING PHYSICIAN: Claude Hernandez MD. PRIMARY ATTENDING: Mayra Vanegas MD. REASON FOR CONSULTATION: Diabetic foot ulcer and likely cellulitis. HISTORY OF PRESENT ILLNESS: This is a 54-year-old male admitted with complaining of foot ulcer in the left side that is not healing. Patient is also diabetic. Around 3 weeks ago, developed ulceration of the left foot. He is under care of retort load expediter outside of the hospital. He was noncompliant with his diabetic treatment and weightbearing in the left foot. He used antibiotic, ciprofloxacin, but problem became worse. PAST MEDICAL HISTORY: Diabetes mellitus for 26 years, hypertension, history of DVT. ALLERGIES: No known drug allergies. MEDICATIONS: Insulin, Tylenol. Got a dose of vancomycin and ceftriaxone in ER. SOCIAL HISTORY: Single. Smokes 5 cigarettes a day. Denies alcohol or drug abuse. Has a fiancee. No sick contact. REVIEW OF SYSTEMS: No fever. No chills. No coughing. No shortness of breath. No nausea. No vomiting. Has significant discharge from the wound. PHYSICAL EXAMINATION: VITAL SIGNS: Temperature 98.3, pulse 95, blood pressure 142/88. GENERAL APPEARANCE: Well developed, in no acute distress. HEAD AND NECK: [place] conjunctivae. HEART: Normal rate. LUNGS: Clear. ABDOMEN: Soft, nontender. EXTREMITIES: Has edema in left lower extremity associated with erythema and warmness. SKIN: Has diabetic foot ulcer in plantar surface of the left foot. Has callus around the ulcer. Minimal discharge from ulcer. NEUROLOGIC: Awake, alert, and oriented x3. LABORATORY DATA: Sodium 138, potassium 4.4, chloride 105, bicarb 25, BUN 16, creatinine 1.5, glucose 321. Hemoglobin A1c 10. Lactic acid was 4.2 at the time of admission now decreased to 2.7. LFTs within normal limits. WBC 8.3, hemoglobin 12.8, hematocrit 40.8, platelets 253. A foot x-ray showed no acute bony abnormality. Metallic linear foreign body seen adjacent to the third proximal phalanx. IMPRESSION: Diabetes mellitus with diabetic foot ulceration. Has cellulitis. Patient has diabetes mellitus with hyperglycemia, lactic acidosis, chronic kidney disease. May have additional acute renal failure. Has hypertension, nicotine dependence. RECOMMENDATION: We will obtain a wound culture. We will start on IV vancomycin. Patient will be seen by retort load expediter. At the end of my exam, I thank Dr. Vanegas, for involving me in the care of this patient. Claude Hernandez M.D. DR: KAJAL JOB#: [id number] CC: WEN
[2020-01-16] MEDS ORDERED: Metoprolol Tartrate 50mg tab ORAL SCH (21:30)
--- NOTE | 2020-01-16 21:56 | Consultation ---
History of Present Illness General Date patient seen: Jan 16, 2020 Time patient seen: 15:05 Chief Complaint: DM foot ulcer Referring physician: Dr Vanegas Reason for Consultation: DFU failed oral abx Present Illness HPI Patient was seen by outside Ski Topper who was treating wound left foot with local care, abx and offloading boot. Wound was noted to be worsening and was sent to ER for higher level of care. Allergies: Coded Allergies: No Known Allergies (Unverified , 08/30/18) Medication History Scheduled Apixaban (Eliquis), 5 MG ORAL BID Apixaban (Eliquis), 2.5 MG PO QID Ciprofloxacin* (Cipro*), 500 MG PO BID, (Reported) Glipizide* (Glipizide*), 5 MG ORAL BIDAC, (Reported) Insulin Aspart (Novolog Flexpen), 8 SUBQ AC, (Reported) Insulin Detemir (Levemir Flextouch), 24 UNIT SQ DAILY, (Reported) Metformin Hcl* (Metformin Hcl*), 500 MG ORAL TID, (Reported) Metoprolol Tartrate* (Metoprolol Tartrate*), 50 MG ORAL BID, (Reported) Permethrin* (Elimite*), 1 APPLIC TOPIC ONCE Quetiapine Fumarate* (Seroquel*), 100 MG ORAL QHS Trimethoprim/Sulfamethoxazole (Bactrim Ds Tablet), 1 TAB ORAL TWICE A DAY Miscellaneous Medications Insulin Aspart (Novolog Flexpen), (Reported) [basalgar] Discontinued Medications Amlodipine Besylate (Norvasc), 5 MG ORAL DAILY, (Reported) Discontinued Reason: MD discontinued med Amoxicillin/Potassium Clav 875-125* (Augmentin 875-125 Tablet*), 1 TAB ORAL TWICE A DAY, (Reported) Discontinued Reason: Therapy completed Amoxicillin/Potassium Clav 875-125* (Augmentin 875-125 Tablet*), 1 TAB ORAL TWICE A DAY Discontinued Reason: Therapy completed Amoxicillin/Potassium Clav 875-125* (Augmentin 875-125 Tablet*), 1 TAB ORAL TWICE A DAY Discontinued Reason: Therapy completed Bacitracin (Bacitracin), 1 APPLIC TOPIC THREE TIMES A DAY Discontinued Reason: Therapy completed Doxycycline Hyclate (Doxycycline Hyclate), 100 MG PO BID, (Reported) Discontinued Reason: Therapy completed Hydroxyzine HCl (Hydroxyzine HCl), 25 MG ORAL FOUR TIMES A DAY Discontinued Reason: Pt stopped taking med Hydroxyzine Hcl (Hydroxyzine Hcl), 10 MG PO Q6HR Discontinued Reason: Therapy completed Permethrin* (Elimite*), 1 APPLIC TOPIC ONCE Discontinued Reason: MD discontinued med Trimethoprim/Sulfamethoxazole 160/800* (Bactrim Ds Tablet*), 1 TAB ORAL Q12H Discontinued Reason: Therapy completed Patient History History Provided By: Patient Healthcare decision maker Resuscitation status Advanced Directive on File Past Medical/Surgical History Past Medical/Surgical History: (1) Diabetes mellitus out of control (2) Hypertension (3) DVT (deep venous thrombosis) (4) Diabetic foot ulcer Review of Systems Constitutional: Denies: no symptoms, see HPI, chills, sweats, fever, malaise, weakness, other Eye: Denies: no symptoms, see HPI, eye pain, blurred vision, tearing, double vision, nose pain, nose congestion, acuity changes, discharge, other Gastrointestinal: Denies: no symptoms, see HPI, abdominal pain, constipation, diarrhea, nausea, vomiting, melena, hematemesis, other Musculoskeletal: Denies: no symptoms, see HPI, back pain, gout, joint pain, joint swelling, muscle pain, muscle stiffness, other Skin: Reports: no symptoms, see HPI, rash, change in color, change in hair/ nails, dryness, lesions, other Physical Exam General Appearance: WD/WN, alert Extremities: normal range of motion, non-tender, no calf tenderness, normal capillary refill Skin Exam: normal pigmentation, other - full thickness wound noted submet 4th left foot, no bone or tendon exposed, no signs of acute infection Neurologic: alert, sensory deficit Last 24 Hour Vital Signs Date Time Temp Pulse Resp B/P (MAP) Pulse Ox O2 Delivery O2 Flow Rate FiO2 01/16/20 21:41 67 158/89 01/16/20 20:00 98.2 67 18 158/89 (112) 98 01/16/20 16:00 98.0 67 21 160/76 (104) 98 01/16/20 12:00 98.3 72 20 138/79 (98) 98 01/16/20 09:00 Room Air 01/16/20 08:00 98.3 95 21 142/88 (106) 96 01/16/20 04:00 98.4 91 16 139/91 (107) 98 01/16/20 00:13 Room Air 01/15/20 23:40 98.3 70 18 155/74 98 Room Air 01/15/20 22:50 98.2 68 18 160/78 99 Room Air Intake and Output 01/15/20 01/16/20 19:00 07:00 Intake Total 480 ml Balance 480 ml Intake Oral 480 ml # Voids 2 Laboratory Tests Test 01/15/20 23:10 01/16/20 05:10 01/16/20 15:50 Lactic Acid Level 2.70 mmol/L (0.66-2.22) H White Blood Count 8.3 K/UL (4.8-10.8) Red Blood Count 3.99 M/UL (4.70-6.10) L Hemoglobin 12.8 G/DL (14.2-18.0) L Hematocrit 40.8 % (42.0-52.0) L Mean Corpuscular Volume 102 FL (80-99) H Mean Corpuscular Hemoglobin 32.1 PG (27.0-31.0) H Mean Corpuscular Hemoglobin Concent 31.4 G/DL (32.0-36.0) L Red Cell Distribution Width 13.4 % (11.6-14.8) Platelet Count 253 K/UL (150-450) Mean Platelet Volume 8.5 FL (6.5-10.1) Neutrophils (%) (Auto) 53.8 % (45.0-75.0) Lymphocytes (%) (Auto) 35.2 % (20.0-45.0) Monocytes (%) (Auto) 6.1 % (1.0-10.0) Eosinophils (%) (Auto) 3.6 % (0.0-3.0) H Basophils (%) (Auto) 1.4 % (0.0-2.0) Sodium Level 138 MMOL/L (136-145) Potassium Level 4.4 MMOL/L (3.5-5.1) Chloride Level 105 MMOL/L (98-107) Carbon Dioxide Level 25 MMOL/L (21-32) Anion Gap 9 mmol/L (5-15) Blood Urea Nitrogen 16 mg/dL (7-18) Creatinine 1.5 MG/DL (0.55-1.30) H Estimat Glomerular Filtration Rate 58.7 mL/min (>60) Glucose Level 321 MG/DL (74-106) H Hemoglobin A1c 10.0 % (4.3-6.0) H Calcium Level 8.8 MG/DL (8.5-10.1) Total Bilirubin 0.5 MG/DL (0.2-1.0) Aspartate Amino Transf (AST/SGOT) 18 U/L (15-37) Alanine Aminotransferase (ALT/SGPT) 20 U/L (12-78) Alkaline Phosphatase 96 U/L (46-116) Total Protein 6.8 G/DL (6.4-8.2) Albumin 3.4 G/DL (3.4-5.0) Globulin 3.4 g/dL Albumin/Globulin Ratio 1.0 (1.0-2.7) Urine Color Pale yellow Urine Appearance Clear Urine pH 5 (4.5-8.0) Urine Specific [place] 1.010 (1.005-1.035) Urine Protein Negative (NEGATIVE) Urine Glucose (UA) 4+ (NEGATIVE) H Urine Ketones Negative (NEGATIVE) Urine Blood Negative (NEGATIVE) Urine Nitrite Negative (NEGATIVE) Urine Bilirubin Negative (NEGATIVE) Urine Urobilinogen Normal MG/DL (0.0-1.0) Urine Leukocyte Esterase Negative (NEGATIVE) Urine RBC 0 /HPF (0 - 0) Urine WBC 0 /HPF (0 - 0) Urine Squamous Epithelial Cells Occasional /LPF Urine Bacteria None /HPF (NONE) Height (Feet): 6 Height (Inches): 4.00 Weight (Pounds): 220 Medications Current Medications Medications (Trade) Dose Ordered Sig/Fiorella Route PRN Reason Start Time Stop Time Status Last Admin Dose Admin Acetaminophen (Tylenol) 650 mg Q4H PRN ORAL Pain Scale 1-3/ Temp >100.4 01/16/20 00:30 02/15/20 00:29 01/16/20 08:05 Dextrose (Dextrose 50%) 25 ml Q30M PRN IV Hypoglycemia 01/16/20 00:30 04/15/20 00:29 Dextrose (Dextrose 50%) 50 ml Q30M PRN IV Hypoglycemia 01/16/20 00:30 04/15/20 00:29 Insulin Aspart (NovoLOG) BEFORE MEALS AND HS SUBQ 01/16/20 06:30 04/15/20 06:29 01/16/20 20:05 Metoprolol Tartrate (Lopressor) 50 mg Q12HR ORAL 01/17/20 09:00 04/15/20 21:29 Vancomycin HCl (Vanco pharmacy to dose) 1 ea DAILY PRN MISC Per rx protocol 01/16/20 14:15 02/15/20 14:14 Vancomycin HCl 1 gm/Dextrose 275 ml @ 183.708 mls/hr Q12H IVPB 01/16/20 16:00 01/21/20 15:59 01/16/20 16:26 Assessment/Plan Assessment/Plan: A/ 1) DFU left foot 2) DM with neuropathy 3) LLE edema from previously treated DVT P/ 1) Wound care orders placed 2) MRI left foot without contrast 3) Abx per ID 4) Cont offloading boot 5) Will follow Thank you Norris Saxena DPM Jan 16, 2020 21:56
[2020-01-17] VITALS (7 sets, daily range): BP systolic 121–158; BP diastolic 71–86
--- NOTE | 2020-01-17 02:30 | History and Physical Report ---
DATE OF ADMISSION: 01/15/2020 HISTORY OF PRESENT ILLNESS: The patient is admitted for diabetic foot ulcer. The patient denies nausea, vomiting, or diarrhea. Denies fever or chills. The patient is admitted for diabetic foot ulcer which has been going on for the past 3 weeks. The patient is being followed by a stencil cutter machine, seen as outpatient. He was first admitted for cellulitis of the lower extremities, on IV antibiotics. The patient denies nausea, vomiting, or diarrhea. No fever or chills. No shortness of breath. Denies cough. PAST MEDICAL HISTORY: History of diabetic foot ulcer, NIDDM, history of psychosis, history of DVT, and hypertension. PAST SURGICAL HISTORY: Denies. ALLERGIES: No known allergies. FAMILY HISTORY: Does have a history of diabetes. SOCIAL HISTORY: Denies history of smoking. Denies history of alcohol abuse. Denies history of drug abuse. MEDICATIONS: The patient takes , glipizide, Eliquis in the past, and Seroquel in the past. REVIEW OF SYSTEMS: HEENT: Denies headaches. PULMONARY: Denies shortness of breath. Denies cough. CARDIOVASCULAR: Denies chest pain. Denies nausea, vomiting, or diarrhea. EXTREMITIES: Reports foot pain for a couple of weeks. CENTRAL NERVOUS SYSTEM: Denies change in speech pattern. PHYSICAL EXAMINATION: VITAL SIGNS: Temperature is 98.4, pulse is 91, blood pressure is 139/91. HEENT: PERRLA. NECK: Supple. No lymphadenopathy. CHEST: Clear to auscultation. CARDIOVASCULAR: Regular rate and rhythm. No murmurs or extra sounds. GASTROINTESTINAL: Soft, nontender, nondistended. No organomegaly. EXTREMITIES: 1+ edema. Does have cellulitis on the lower extremities and feet. Also, has some wounds/ulcer that needs to be addressed. Dorsalis pedis pulses are present. LABORATORY DATA: WBC of 8.8, hemoglobin of 14.4, platelets of 285. Sodium 137, potassium 4.3, BUN of 17, creatinine 1.7, glucose of 269. ASSESSMENT AND PLAN: Diabetic foot ulcer, cellulitis, and NIDDM. I have asked Dr. Claude Hernandez and Dr. Anguiano to see the patient for the diabetic foot ulcer/cellulitis and antibiotics per Dr. Claude Hernandez. Ali Alonzo Vanegas DR: OLLIE JOB#: [id number] CC:
[2020-01-17] MEDS: Vancomycin 1gm/D5W 275ml IVPB SCH ×4 (04:53→16:42)
[2020-01-17] MEDS: NovoLOG Insulin Flexpen SUBQ SCH ×4 (06:03→20:51)
[2020-01-17] MEDS: Metoprolol Tartrate 50mg tab ORAL SCH ×2 (09:29→20:50)
--- NOTE | 2020-01-17 10:38 | Diagnostic Imaging Report ---
EXAM: MRI MRI Left Foot WO Contrast HISTORY: Foot pain. Ulceration at the plantar aspect of forefoot. COMPARISON: Left foot x-rays 01/15/2020 TECHNIQUE: MR examination of the foot includes sagittal T1 and STIR, coronal T1 and STIR as well as axial proton density fat-suppressed T2 and STIR sequences. FINDINGS: There is severe metal artifacts noted in the forefoot obscuring most of the toes except for the great toe. This is due to the metallic foreign body identified adjacent to the third proximal phalanx on the x-ray exam. Of the visualized bony structures, no gross acute abnormality noted in the metatarsals as well as the first toe. There is no focal bony lesions or erosions. Joint spaces appear well-maintained. There is superficial soft tissue edema noted at the dorsum of the forefoot and midfoot. IMPRESSION: THE METALLIC FOREIGN BODY ADJACENT TO THE THIRD PROXIMAL PHALANX SEEN ON X-RAY CAUSES SEVERE METAL ARTIFACT OBSCURING MOST OF THE TOES. THE REMAINING VISUALIZED OSSEOUS STRUCTURES INCLUDING THE GREAT TOE AND METATARSALS ARE GROSSLY UNREMARKABLE WITHOUT SIGN OF ACUTE OSTEOMYELITIS. THE ULCERATION AT THE PLANTAR ASPECT OF THE FOREFOOT IS NOT WELL VISUALIZED AND THE OVERLYING MARKER IS PARTIALLY SEEN. NO DEFINITE SOFT TISSUE FLUID COLLECTION OR ABSCESS TO THE EXTENT VISUALIZED.
--- NOTE | 2020-01-17 12:06 | Infectious Diseases Prog Note ---
Assessment/Plan Assessment/Plan IMPRESSION: Diabetes mellitus with diabetic foot ulceration. cellulitis of left leg Diabetes mellitus with hyperglycemia, lactic acidosis, chronic kidney disease. acute renal failure. Hypertension, Nicotine dependence. RECOMMENDATION: We will f/u wound culture. Continue IV vancomycin. Case was D/W records custodian. Subjective ROS Limited/Unobtainable: No Constitutional: Reports: no symptoms Respiratory: Reports: no symptoms Gastrointestinal/Abdominal: Reports: no symptoms Genitourinary: Reports: no symptoms Musculoskeletal: Reports: no symptoms Allergies: Coded Allergies: No Known Allergies (Unverified , 08/30/18) Objective Vital Signs Last 24 Hour Vital Signs Date Time Temp Pulse Resp B/P (MAP) Pulse Ox O2 Delivery O2 Flow Rate FiO2 01/17/20 09:29 80 143/71 01/17/20 09:00 Room Air 01/17/20 08:00 97.8 80 20 143/71 (95) 100 01/17/20 04:00 98.4 70 16 140/80 (100) 97 01/17/20 00:00 98.1 64 16 142/74 (96) 97 01/16/20 21:41 67 158/89 01/16/20 21:00 Room Air 01/16/20 20:00 98.2 67 18 158/89 (112) 98 01/16/20 16:00 98.0 67 21 160/76 (104) 98 Height (Feet): 6 Height (Inches): 4.00 Weight (Pounds): 198 General Appearance: no acute distress HEENT: mucous membranes moist Respiratory/Chest: lungs clear Cardiovascular: normal rate Abdomen: soft, non tender Extremities: other - edema of left leg Skin: other - left plantar ulcer, erythema of left leg Neurologic/Psychiatric: alert, oriented x 3, responsive Microbiology Date/Time Source Procedure Growth Status 01/15/20 20:50 Blood Blood Culture - Preliminary NO GROWTH AFTER 24 HOURS Resulted 01/15/20 20:35 Blood Blood Culture - Preliminary NO GROWTH AFTER 24 HOURS Resulted Laboratory Tests Test 01/16/20 15:50 Urine Color Pale yellow Urine Appearance Clear Urine pH 5 (4.5-8.0) Urine Specific Burt 1.010 (1.005-1.035) Urine Protein Negative (NEGATIVE) Urine Glucose (UA) 4+ (NEGATIVE) H Urine Ketones Negative (NEGATIVE) Urine Blood Negative (NEGATIVE) Urine Nitrite Negative (NEGATIVE) Urine Bilirubin Negative (NEGATIVE) Urine Urobilinogen Normal MG/DL (0.0-1.0) Urine Leukocyte Esterase Negative (NEGATIVE) Urine RBC 0 /HPF (0 - 0) Urine WBC 0 /HPF (0 - 0) Urine Squamous Epithelial Cells Occasional /LPF Urine Bacteria None /HPF (NONE) Current Medications Medications (Trade) Dose Ordered Sig/Fiorella Route PRN Reason Start Time Stop Time Status Last Admin Dose Admin Acetaminophen (Tylenol) 650 mg Q4H PRN ORAL Pain Scale 1-3/ Temp >100.4 01/16/20 00:30 02/15/20 00:29 01/16/20 08:05 Dextrose (Dextrose 50%) 25 ml Q30M PRN IV Hypoglycemia 01/16/20 00:30 04/15/20 00:29 Dextrose (Dextrose 50%) 50 ml Q30M PRN IV Hypoglycemia 01/16/20 00:30 04/15/20 00:29 Insulin Aspart (NovoLOG) BEFORE MEALS AND HS SUBQ 01/16/20 06:30 04/15/20 06:29 01/17/20 06:03 Metoprolol Tartrate (Lopressor) 50 mg Q12HR ORAL 01/17/20 09:00 04/15/20 21:29 01/17/20 09:29 Vancomycin HCl (Vanco pharmacy to dose) 1 ea DAILY PRN MISC Per rx protocol 01/16/20 14:15 02/15/20 14:14 Vancomycin HCl 1 gm/Dextrose 275 ml @ 183.708 mls/hr Q12H IVPB 01/16/20 16:00 01/21/20 15:59 01/17/20 04:53 Claude Hernandez MD Jan 17, 2020 12:06
--- NOTE | 2020-01-17 21:36 | General Progress Note ---
Assessment/Plan Problem List: (1) Diabetes ICD Codes: E11.9 - Type 2 diabetes mellitus without complications SNOMED: 18913801, 444924796 (2) Hyperglycemia ICD Codes: R73.9 - Hyperglycemia, unspecified SNOMED: 30663153, 969736403 (3) Noncompliance with medication regimen ICD Codes: Z91.14 - Patient's other noncompliance with medication regimen SNOMED: 849570717, 251812162 (4) Rash ICD Codes: R21 - Rash and other nonspecific skin eruption SNOMED: 168325231 (5) Diabetic foot ulcer ICD Codes: E11.621 - Type 2 diabetes mellitus with foot ulcer; L97.509 - Non- pressure chronic ulcer of other part of unspecified foot with unspecified severity SNOMED: 688636776, 37539129 (6) Hypertension ICD Codes: I10 - Essential (primary) hypertension SNOMED: 85456853 (7) Diabetes mellitus out of control ICD Codes: E11.65 - Type 2 diabetes mellitus with hyperglycemia SNOMED: 93822561, 567386973 Status: progressing Assessment/Plan: consulted car hop noncompliant niddm labile sugar afebrile reviewed chart Subjective ROS Limited/Unobtainable: Yes Allergies: Coded Allergies: No Known Allergies (Unverified , 08/30/18) Objective Last 24 Hour Vital Signs Date Time Temp Pulse Resp B/P (MAP) Pulse Ox O2 Delivery O2 Flow Rate FiO2 01/17/20 20:50 64 158/83 01/17/20 20:08 Room Air 01/17/20 20:00 98.0 64 15 158/83 (108) 97 01/17/20 16:00 98.2 73 18 121/76 (91) 100 01/17/20 12:00 98.8 60 18 139/78 (98) 100 01/17/20 09:29 80 143/71 01/17/20 09:00 Room Air 01/17/20 08:00 97.8 80 20 143/71 (95) 100 01/17/20 04:00 98.4 70 16 140/80 (100) 97 01/17/20 00:00 98.1 64 16 142/74 (96) 97 01/16/20 21:41 67 158/89 Intake and Output 01/16/20 01/17/20 19:00 07:00 Intake Total 635.000 ml Balance 635.000 ml Intake Oral 360 ml IV Total 275.000 ml # Voids 2 2 Height (Feet): 6 Height (Inches): 4.00 Weight (Pounds): 198 Mayra Vanegas MD Jan 17, 2020 21:36
[2020-01-18 04:00] VITALS: BP 159/75
[2020-01-18] MEDS: Vancomycin 1gm/D5W 275ml IVPB SCH ×2 (05:23)
[2020-01-18] MEDS: NovoLOG Insulin Flexpen SUBQ SCH ×3 (05:25→16:46)
[2020-01-18 09:31] VITALS: BP 139/74
[2020-01-18] MEDS: Metoprolol Tartrate 50mg tab ORAL SCH (09:37)
--- NOTE | 2020-01-18 09:38 | Infectious Diseases Prog Note ---
Assessment/Plan Assessment/Plan IMPRESSION: Diabetes mellitus with diabetic foot ulceration. cellulitis of left leg Diabetes mellitus with hyperglycemia, lactic acidosis, chronic kidney disease. acute renal failure. Hypertension, Nicotine dependence. RECOMMENDATION: Wound culture mostly normal lary Discontinue IV vancomycin. Subjective ROS Limited/Unobtainable: No Constitutional: Reports: no symptoms Respiratory: Reports: no symptoms Gastrointestinal/Abdominal: Reports: no symptoms Genitourinary: Reports: no symptoms Allergies: Coded Allergies: No Known Allergies (Unverified , 08/30/18) Objective Vital Signs Last 24 Hour Vital Signs Date Time Temp Pulse Resp B/P (MAP) Pulse Ox O2 Delivery O2 Flow Rate FiO2 01/18/20 09:31 98.7 63 16 139/74 (95) 99 01/18/20 04:00 98.1 60 15 159/75 (103) 98 01/17/20 23:49 98.2 70 17 152/86 (108) 97 01/17/20 20:50 64 158/83 01/17/20 20:08 Room Air 01/17/20 20:00 98.0 64 15 158/83 (108) 97 01/17/20 16:00 98.2 73 18 121/76 (91) 100 01/17/20 12:00 98.8 60 18 139/78 (98) 100 Height (Feet): 6 Height (Inches): 4.00 Weight (Pounds): 198 General Appearance: no acute distress HEENT: mucous membranes moist Respiratory/Chest: lungs clear Cardiovascular: normal rate Abdomen: soft, non tender Extremities: other - left pedal edema Skin: ulcers, other - left plantar Neurologic/Psychiatric: alert, oriented x 3, responsive Microbiology Date/Time Source Procedure Growth Status 01/15/20 20:50 Blood Blood Culture - Preliminary NO GROWTH AFTER 48 HOURS Resulted 01/15/20 20:35 Blood Blood Culture - Preliminary NO GROWTH AFTER 48 HOURS Resulted 01/16/20 15:20 Foot Left Gram Stain - Final Resulted 01/16/20 15:20 Wound Culture - Preliminary Staphylococcus Sp Coag Neg Strep Species, Gamma-Hemolytic Diphtheroids Resulted Laboratory Tests Test 01/18/20 03:00 Vancomycin Level Trough 11.5 ug/mL (5.0-12.0) Current Medications Medications (Trade) Dose Ordered Sig/Fiorella Route PRN Reason Start Time Stop Time Status Last Admin Dose Admin Acetaminophen (Tylenol) 650 mg Q4H PRN ORAL Pain Scale 1-3/ Temp >100.4 01/16/20 00:30 02/15/20 00:29 01/16/20 08:05 Dextrose (Dextrose 50%) 25 ml Q30M PRN IV Hypoglycemia 01/16/20 00:30 04/15/20 00:29 Dextrose (Dextrose 50%) 50 ml Q30M PRN IV Hypoglycemia 01/16/20 00:30 04/15/20 00:29 Insulin Aspart (NovoLOG) BEFORE MEALS AND HS SUBQ 01/16/20 06:30 04/15/20 06:29 01/18/20 05:25 Metoprolol Tartrate (Lopressor) 50 mg Q12HR ORAL 01/17/20 09:00 04/15/20 21:29 01/17/20 20:50 Vancomycin HCl (Vanco pharmacy to dose) 1 ea DAILY PRN MISC Per rx protocol 01/16/20 14:15 02/15/20 14:14 Vancomycin HCl 1 gm/Dextrose 275 ml @ 183.708 mls/hr Q12H IVPB 01/16/20 16:00 01/21/20 15:59 01/18/20 05:23 Claude Hernandez MD Jan 18, 2020 09:38
[2020-01-18 12:09] VITALS: BP 157/75
[2020-01-18 15:52] VITALS: BP 147/73
--- NOTE | 2020-01-20 11:22 | Discharge Summary ---
Discharge Summary Discharge Summary _ DATE OF ADMISSION: 01/15/2020 DATE OF DISCHARGE: 2019 DISCHARGED BY: Dr. Vanegas REASON FOR ADMISSION: 54 years old male with past medical history of hypertension, diabetes mellitus, history of DVT left lower extremity, presented with increased discomfort and swelling in his left foot. Patient followed up with skidder operator and primary care physician. Patient was on oral ciprofloxacin. Patient reported wound , which increased in size and did not respond to outpatient treatment. He denied fever or chills. He denies any trauma or injury. Upon evaluation patient was afebrile . Laboratory work-up revealed no leukocytosis, hemoglobin 12.8 , hematocrit 40.8, platelet count 253. Stable electrolytes and LFT. BUN 16, creatinine 1.5. Glucose 321. Anion gap 9. Hemoglobin A1c 10. Urinalysis revealed +4 glucose, no evidence of urinary tract infection. X-ray of the left foot revealed no acute bony abnormalities. Metallic linear foreign body was seen adjacent to the third proximal phalanx. Patient admitted with diabetic foot ulcer for IV antibiotics, since he failed outpatient oral antibiotic therapy. CONSULTANTS: ID specialist Dr. Claude Burger Lard Refiner Dr. Anguiano [facility]SE: Patient admitted to medical surgical floor. ID specialist followed. Blood cultures were negative. Patient started on empiric antibiotics. Wound culture revealed Staph coagulase negative and Enterococcus faecalis. Patient completed treatment with antibiotic while in the hospital. No fevers , no leukocytosis. Wound care provided as per skidder operator recommendation. Offloading boot provided . MRI of the left foot revealed a metallic foreign body adjacent to the third proximal phalanx, causing severe metal artifact obscuring of the toes. The remaining visualized osseous structures, including the great toe and metatarsal were grossly unremarkable, without signs of acute osteomyelitis. The ulceration at the plantar aspect of the forefoot was not well visualized , no definite soft tissue fluid collection or abscess to the extent visualized. Blood sugar was managed with long-acting insulin. Patient will need further optimization of anti-glycemic regimen due to uncontrolled diabetes and hemoglobin A1c not at goal. Diabetic teaching and diabetic diet provided. Patient was encouraged compliance with both diet and medication. Blood pressure was managed with beta-tono and stabilized. Renal parameters and electrolytes were closely monitored. Nephrotoxic's were avoided. Electrolytes corrected as needed. Creatinine from 1.7 down to 1.5 prior to discharge. Home health was arranged for wound care. However patient declined home health services. Patient clinically stabilized and was ready for discharge. Patient was recommended to follow-up as outpatient with his skidder operator. FINAL DIAGNOSES:. Diabetic foot ulcer left foot Diabetes mellitus with neuropathy Cellulitis left leg Diabetes mellitus with hyperglycemia Chronic kidney disease Hypertension Left lower extremity edema from previously treated DVT Non-compliance DISCHARGE MEDICATIONS: See Medication Reconciliation list. DISCHARGE INSTRUCTIONS: Patient was discharged home with home health services. [facility] declined to be serviced by home health services. Patient was encouraged to follow up with primary care provider in one week. Patient to follow-up with his skidder operator for wound care. I have been assigned to dictate discharge summary for this account. I was not involved in the patient's management. Ana Lilia Betancourt NP Jan 20, 2020 11:22
== END 2020-01-18 18:15 | disposition home health service (06) | DRG 420 ==
LOC: EMR 20:30 → 3E 21:12 → EDBEDREQ 21:42
DX: E11.621 Type 2 diabetes mellitus with foot ulcer (principal); E11.40 Type 2 diabetes mellitus with diabetic neuropathy, unspecified; L03.116 Cellulitis of left lower limb; E11.65 Type 2 diabetes mellitus with hyperglycemia; E11.21 Type 2 diabetes mellitus with diabetic nephropathy; I12.9 Hypertensive chronic kidney disease with stage 1 through stage 4 chronic kidney disease, or unspecified chronic kidney disease; N18.9 Chronic kidney disease, unspecified; Z91.14 Patient's other noncompliance with medication regimen; I10 Essential (primary) hypertension; F17.200 Nicotine dependence, unspecified, uncomplicated; Z79.4 Long term (current) use of insulin; Z86.718 Personal history of other venous thrombosis and embolism
CPT/HCPCS: 36415; 80053; 80202; 81001; 82550; 82553; 82962; 83036; 83605; 85025; 87040; 87070; 87181; 87205; 96361; 96365; 96368; 99285; J1815; J7030

== ENCOUNTER 2020-02-08 16:25 | Inpatient (IN) | payer OTHER ==
[~2020-02-08] VITALS: Ht 193 cm; Wt 95.3 kg
[2020-02-08] MEDS: Metoprolol Succinate XL 50mg tab ORAL SCH (10:30)
[~2020-02-08 16:25] MED LIST changes: +CIPRO500 MG PO
[2020-02-08] MEDS ORDERED: ADMELOG SUBQ (17:08)
[2020-02-08] MEDS ORDERED: BASAGLAR SUBQ (17:08)
[2020-02-08 18:17] LABS: BASOPHILS % (AUTO) 1.9 % (0.0-2.0); EOSINOPHILS % (AUTO) 3.7 % (0.0-3.0); HEMATOCRIT 37.4 % (42.0-52.0); HEMOGLOBIN 12.3 G/DL (14.2-18.0); LYMPHOCYTES % (AUTO) 34.5 % (20.0-45.0); MEAN CORPUSCULAR VOLUME 96 FL (80-99); MONOCYTES % (AUTO) 6.1 % (1.0-10.0); NEUTROPHILS % (AUTO) 53.8 % (45.0-75.0); PLATELET COUNT 394 K/UL (150-450); RED BLOOD COUNT 3.91 M/UL (4.70-6.10); RED CELL DISTRIBUTION WIDTH 13.1 % (11.6-14.8); WHITE BLOOD COUNT 7.1 K/UL (4.8-10.8)
[2020-02-08 18:29] LABS: ANION GAP 11 mmol/L (5-15); BLOOD UREA NITROGEN 12 mg/dL (7-18); CALCIUM 9.1 MG/DL (8.5-10.1); CARBON DIOXIDE 25 MMOL/L (21-32); CHLORIDE 102 MMOL/L (98-107); CREATININE 1.2 MG/DL (0.55-1.30); POTASSIUM 4.5 MMOL/L (3.5-5.1); SODIUM 138 MMOL/L (136-145)
[2020-02-08 18:32] LABS: ALANINE AMINOTRANSFERASE 21 U/L (12-78); ALBUMIN 3.6 G/DL (3.4-5.0); ALBUMIN/GLOBULIN RATIO 0.9 (1.0-2.7); ALKALINE PHOSPHATASE 97 U/L (46-116); ASPARTATE AMINO TRANSFERASE 16 U/L (15-37); BILIRUBIN,TOTAL 0.2 MG/DL (0.2-1.0)
[2020-02-08 18:43] VITALS: BP 160/81
[2020-02-08] MEDS ORDERED: Vancomycin 1 GM in NS 275 ML IVPB ONE (19:30)
[2020-02-08 20:30] VITALS: BP 157/92
--- NOTE | 2020-02-08 20:59 | Emergency Room Report ---
History of Present Illness General Chief Complaint: Lower Extremity Injury Source: Patient Present Illness HPI 54-year-old male with a hx of smoking HTN and poorly controlled DM presents to the emergency department complaining of 7 out of 10 severity pain, swelling and open wound to left foot and ankle. Pt. also c/o inability to finish course of IV antibiotics via PICC line x3 days. Patient reports that he is not sure what type of antibiotic he was receiving. He denies fevers or chills. He reports increase in pain. Patient reports he was hospitalized last month for infection and complication to the left foot. He denies trauma or fall. Pt. reports hx of DM neuropathy. Allergies: Coded Allergies: No Known Allergies (Unverified , 08/30/18) COVID-19 Screening Contact w/high risk pt: No Recent Travel to affected area: No Experienced COVID-19 symptoms?: No COVID-19 Testing performed DOCUMENTATION ANALYST: Yes COVID-19 Screening: Negative COVID-19 COVID-19 Testing Source: [facility] - end of December Patient History Past Medical History: see triage record, DM Past Surgical History: none Pertinent Family History: none Reviewed Nursing Documentation: PMH: Agreed; PSxH: Agreed Nursing Documentation-PMH Past Medical History: No History, Except For Hx Cardiac Problems: Yes Hx Hypertension: Yes Hx Diabetes: Yes Hx Cancer: No Hx Gastrointestinal Problems: No Hx Neurological Problems: No Review of Systems All Other Systems: negative except mentioned in HPI Physical Exam Vital Signs Date Time Temp Pulse Resp B/P (MAP) Pulse Ox O2 Delivery O2 Flow Rate FiO2 02/08/20 16:42 97.5 90 20 179/83 (115) 97 Room Air Sp02 EP Interpretation: reviewed, normal General Appearance: no apparent distress, alert, GCS 15, non-toxic, Chronically Ill Head: normocephalic, atraumatic Eyes: bilateral eye normal inspection, bilateral eye PERRL ENT: hearing grossly normal, normal voice Neck: full range of motion Respiratory: lungs clear, normal breath sounds, speaking full sentences Cardiovascular #1: regular rate, rhythm, normal capillary refill, edema - Left LE edema non-pitting Cardiovascular #2: 1+ dorsalis pedis (L) - post. tibial Musculoskeletal: gait/station normal - with use of cane, tender - Left ankle and foot. swelling noted. erythema, and increased warmth. , other - PICC line in the right UE. Neurologic: alert, motor strength/tone normal, oriented x3, sensory intact, responsive, speech normal Psychiatric: judgement/insight normal Skin: other - small healing DM foot ulcer on the plantar aspect of the left foot. Moderate swelling, erythema and warmth to the left foot and ankle. Hyperpigmentation to the distal aspect of the left lower leg. Poor nail hygiene Medical Decision Making PA Attestation Dr. Little Is my supervising Physician whom patient management has been discussed with. Diagnostic Impression: Primary Impression: Cellulitis of lower extremity Qualified Codes: L03.116 - Cellulitis of left lower limb Additional Impression: Diabetic foot ulcer Qualified Codes: E08.621 - Diabetes mellitus due to underlying condition with foot ulcer; L97.421 - Non-pressure chronic ulcer of left heel and midfoot limited to breakdown of skin ER Course 54-year-old male with a hx of smoking HTN and poorly controlled DM presents to the emergency department complaining of 7 out of 10 severity pain, swelling and open wound to left foot and ankle. Pt. also c/o inability to finish course of IV antibiotics via PICC line x3 days. Patient reports that he is not sure what type of antibiotic he was receiving. He denies fevers or chills. He reports increase in pain. Patient reports he was hospitalized last month for infection and complication to the left foot. He denies trauma or fall. Pt. reports hx of DM neuropathy. Ddx considered but are not limited to cellulitis, Necrotizing fasciitis, allergic reaction, burn, dermatitis, fracture, d/L, gout, sepsis, DVT just to name a few. Vital signs: are WNL, pt. is afebrile H&PE are most consistent with diabetic foot ulcer in addition to cellulitis of the left foot/lower leg. decreased pulse/difficult to assess due to swelling. post. tibial 1+ ORDERS: -CBC: WNL - CMP: Glucose of 355 -Lactic Acid: 2.2 repeat was 1.5 Blood Cultures: Pending Venous duplex left Lower extremity: Pending ED INTERVENTIONS: -1 liter NS -Vancomycin IV DISPOSITION: at this time pt. will be admitted to Dr. Flaherty for Cellulitis of diabetic foot ulcer and failure of outpatient antibiotic regimen. Dr. Flaherty agreed to admit the pt. and to continue pt. care management. Labs Test 02/08/20 18:00 02/08/20 18:59 White Blood Count 7.1 K/UL (4.8-10.8) Red Blood Count 3.91 M/UL (4.70-6.10) Hemoglobin 12.3 G/DL (14.2-18.0) Hematocrit 37.4 % (42.0-52.0) Mean Corpuscular Volume 96 FL (80-99) Mean Corpuscular Hemoglobin 31.4 PG (27.0-31.0) Mean Corpuscular Hemoglobin Concent 32.8 G/DL (32.0-36.0) Red Cell Distribution Width 13.1 % (11.6-14.8) Platelet Count 394 K/UL (150-450) Mean Platelet Volume 7.9 FL (6.5-10.1) Neutrophils (%) (Auto) 53.8 % (45.0-75.0) Lymphocytes (%) (Auto) 34.5 % (20.0-45.0) Monocytes (%) (Auto) 6.1 % (1.0-10.0) Eosinophils (%) (Auto) 3.7 % (0.0-3.0) Basophils (%) (Auto) 1.9 % (0.0-2.0) Sodium Level 138 MMOL/L (136-145) Potassium Level 4.5 MMOL/L (3.5-5.1) Chloride Level 102 MMOL/L (98-107) Carbon Dioxide Level 25 MMOL/L (21-32) Anion Gap 11 mmol/L (5-15) Blood Urea Nitrogen 12 mg/dL (7-18) Creatinine 1.2 MG/DL (0.55-1.30) Estimat Glomerular Filtration Rate > 60 mL/min (>60) Glucose Level 355 MG/DL (74-106) Calcium Level 9.1 MG/DL (8.5-10.1) Total Bilirubin 0.2 MG/DL (0.2-1.0) Aspartate Amino Transf (AST/SGOT) 16 U/L (15-37) Alanine Aminotransferase (ALT/SGPT) 21 U/L (12-78) Alkaline Phosphatase 97 U/L (46-116) Total Protein 7.7 G/DL (6.4-8.2) Albumin 3.6 G/DL (3.4-5.0) Globulin 4.1 g/dL Albumin/Globulin Ratio 0.9 (1.0-2.7) Lactic Acid Level 1.50 mmol/L (0.66-2.22) CT/MRI/US Diagnostic Results CT/MRI/US Diagnostic Results : Imaging Test Ordered: Venous duplex left Lower extremity Impression "Evidence of chronic left lower extremity deep venous thrombus, distribution similar to acute thrombus associated on prior study of 04/25/2018. No definite acute deep venous thrombosis demonstrated." Per official radiology report- Please see report for specific details. Last Vital Signs Date Time Temp Pulse Resp B/P (MAP) Pulse Ox O2 Delivery O2 Flow Rate FiO2 02/08/20 19:53 97.5 75 18 160/81 99 Room Air Disposition: ADMITTED INPATIENT Condition: Serious Referrals: NON PHYSICIAN (PCP) Jaymie Last Feb 08, 2020 20:59
[2020-02-09] VITALS (7 sets, daily range): BP systolic 122–167; BP diastolic 68–85
[2020-02-09 05:49] LABS: BASOPHILS % (AUTO) 1.8 % (0.0-2.0); EOSINOPHILS % (AUTO) 4.2 % (0.0-3.0); HEMATOCRIT 35.6 % (42.0-52.0); HEMOGLOBIN 11.6 G/DL (14.2-18.0); LYMPHOCYTES % (AUTO) 40.4 % (20.0-45.0); MEAN CORPUSCULAR VOLUME 97 FL (80-99); MONOCYTES % (AUTO) 7.4 % (1.0-10.0); NEUTROPHILS % (AUTO) 46.2 % (45.0-75.0); PLATELET COUNT 323 K/UL (150-450); RED BLOOD COUNT 3.67 M/UL (4.70-6.10); RED CELL DISTRIBUTION WIDTH 12.8 % (11.6-14.8); WHITE BLOOD COUNT 8.1 K/UL (4.8-10.8)
[2020-02-09 06:15] LABS: ALANINE AMINOTRANSFERASE 13 U/L (12-78); ALBUMIN 3.3 G/DL (3.4-5.0); ALBUMIN/GLOBULIN RATIO 0.9 (1.0-2.7); ALKALINE PHOSPHATASE 90 U/L (46-116); ANION GAP 9 mmol/L (5-15); ASPARTATE AMINO TRANSFERASE 15 U/L (15-37); BILIRUBIN,TOTAL 0.3 MG/DL (0.2-1.0); BLOOD UREA NITROGEN 12 mg/dL (7-18); CALCIUM 8.8 MG/DL (8.5-10.1); CARBON DIOXIDE 27 MMOL/L (21-32); CHLORIDE 104 MMOL/L (98-107); CREATININE 1.1 MG/DL (0.55-1.30); POTASSIUM 3.8 MMOL/L (3.5-5.1); SODIUM 140 MMOL/L (136-145)
[2020-02-09] MEDS: Enoxaparin 40mg Inj SUBQ SCH (08:59)
[2020-02-09] MEDS: Metoprolol Succinate XL 50mg tab ORAL SCH ×2 (09:03→17:30)
--- NOTE | 2020-02-09 10:57 | Consultation ---
History of Present Illness General Date patient seen: Feb 09, 2020 Chief Complaint: Lower Extremity Injury Present Illness Allergies: Coded Allergies: No Known Allergies (Unverified , 08/30/18) Medication History Scheduled Metoprolol Tartrate* (Metoprolol Tartrate*), 50 MG ORAL BID, (Reported) [Admelog], Unknown Dose SUBQ AC+HS, (Reported) [Basaglar], Unknown Dose SUBQ BEFORE MEALS AND HS, (Reported) Discontinued Medications Apixaban (Eliquis), 5 MG ORAL BID Discontinued Reason: Pt stopped taking med Apixaban (Eliquis), 2.5 MG PO QID Discontinued Reason: Pt stopped taking med Ciprofloxacin* (Cipro*), 500 MG PO BID, (Reported) Discontinued Reason: Pt stopped taking med Glipizide* (Glipizide*), 5 MG ORAL BIDAC, (Reported) Discontinued Reason: Pt stopped taking med Insulin Aspart (Novolog Flexpen), 8 SUBQ AC, (Reported) Discontinued Reason: Pt stopped taking med Insulin Aspart (Novolog Flexpen), (Reported) Discontinued Reason: Pt stopped taking med Insulin Detemir (Levemir Flextouch), 24 UNIT SQ DAILY, (Reported) Discontinued Reason: Pt stopped taking med Metformin Hcl* (Metformin Hcl*), 500 MG ORAL TID, (Reported) Discontinued Reason: Pt stopped taking med Permethrin* (Elimite*), 1 APPLIC TOPIC ONCE Discontinued Reason: Pt stopped taking med Quetiapine Fumarate* (Seroquel*), 100 MG ORAL QHS Discontinued Reason: Pt stopped taking med Trimethoprim/Sulfamethoxazole (Bactrim Ds Tablet), 1 TAB ORAL TWICE A DAY Discontinued Reason: Pt stopped taking med [basalgar] Discontinued Reason: Pt stopped taking med Patient History Healthcare decision maker Resuscitation status Advanced Directive on File Physical Exam Last 24 Hour Vital Signs Date Time Temp Pulse Resp B/P (MAP) Pulse Ox O2 Delivery O2 Flow Rate FiO2 02/09/20 09:03 70 140/70 02/09/20 08:00 97.7 70 18 140/70 (93) 99 02/09/20 04:00 97.6 67 18 145/68 (93) 99 02/09/20 00:00 98.3 89 18 122/68 (86) 96 02/08/20 21:47 Room Air 02/08/20 20:30 98.4 76 18 157/92 (113) 100 02/08/20 19:53 97.5 75 18 160/81 99 Room Air 02/08/20 18:43 97.5 75 18 160/81 99 Room Air 02/08/20 16:42 97.5 90 20 179/83 (115) 97 Room Air Intake and Output 02/08/20 02/09/20 19:00 07:00 Intake Total 0 ml 0 ml Balance 0 ml 0 ml Intake Oral 0 ml 0 ml # Voids 2 # Bowel Movements 1 Laboratory Tests Test 02/08/20 18:00 02/08/20 18:59 02/09/20 05:25 White Blood Count 7.1 K/UL (4.8-10.8) 8.1 K/UL (4.8-10.8) Red Blood Count 3.91 M/UL (4.70-6.10) L 3.67 M/UL (4.70-6.10) L Hemoglobin 12.3 G/DL (14.2-18.0) L 11.6 G/DL (14.2-18.0) L Hematocrit 37.4 % (42.0-52.0) L 35.6 % (42.0-52.0) L Mean Corpuscular Volume 96 FL (80-99) 97 FL (80-99) Mean Corpuscular Hemoglobin 31.4 PG (27.0-31.0) H 31.6 PG (27.0-31.0) H Mean Corpuscular Hemoglobin Concent 32.8 G/DL (32.0-36.0) 32.6 G/DL (32.0-36.0) Red Cell Distribution Width 13.1 % (11.6-14.8) 12.8 % (11.6-14.8) Platelet Count 394 K/UL (150-450) 323 K/UL (150-450) Mean Platelet Volume 7.9 FL (6.5-10.1) 7.9 FL (6.5-10.1) Neutrophils (%) (Auto) 53.8 % (45.0-75.0) 46.2 % (45.0-75.0) Lymphocytes (%) (Auto) 34.5 % (20.0-45.0) 40.4 % (20.0-45.0) Monocytes (%) (Auto) 6.1 % (1.0-10.0) 7.4 % (1.0-10.0) Eosinophils (%) (Auto) 3.7 % (0.0-3.0) H 4.2 % (0.0-3.0) H Basophils (%) (Auto) 1.9 % (0.0-2.0) 1.8 % (0.0-2.0) Sodium Level 138 MMOL/L (136-145) 140 MMOL/L (136-145) Potassium Level 4.5 MMOL/L (3.5-5.1) 3.8 MMOL/L (3.5-5.1) Chloride Level 102 MMOL/L (98-107) 104 MMOL/L (98-107) Carbon Dioxide Level 25 MMOL/L (21-32) 27 MMOL/L (21-32) Anion Gap 11 mmol/L (5-15) 9 mmol/L (5-15) Blood Urea Nitrogen 12 mg/dL (7-18) 12 mg/dL (7-18) Creatinine 1.2 MG/DL (0.55-1.30) 1.1 MG/DL (0.55-1.30) Estimat Glomerular Filtration Rate > 60 mL/min (>60) > 60 mL/min (>60) Glucose Level 355 MG/DL (74-106) H 82 MG/DL (74-106) # Lactic Acid Level 2.20 mmol/L (0.4-2.0) H 1.50 mmol/L (0.66-2.22) Calcium Level 9.1 MG/DL (8.5-10.1) 8.8 MG/DL (8.5-10.1) Total Bilirubin 0.2 MG/DL (0.2-1.0) 0.3 MG/DL (0.2-1.0) Aspartate Amino Transf (AST/SGOT) 16 U/L (15-37) 15 U/L (15-37) Alanine Aminotransferase (ALT/SGPT) 21 U/L (12-78) 13 U/L (12-78) Alkaline Phosphatase 97 U/L (46-116) 90 U/L (46-116) Total Protein 7.7 G/DL (6.4-8.2) 6.9 G/DL (6.4-8.2) Albumin 3.6 G/DL (3.4-5.0) 3.3 G/DL (3.4-5.0) L Globulin 4.1 g/dL 3.6 g/dL Albumin/Globulin Ratio 0.9 (1.0-2.7) L 0.9 (1.0-2.7) L Microbiology Date/Time Source Procedure Growth Status 02/08/20 18:00 Rectum Received Height (Feet): 6 Height (Inches): 4.00 Weight (Pounds): 210 Medications Current Medications Medications (Trade) Dose Ordered Sig/Fiorella Route PRN Reason Start Time Stop Time Status Last Admin Dose Admin Acetaminophen (Tylenol) 650 mg Q4H PRN ORAL Mild Pain (Pain Scale 1-3) 02/08/20 21:30 03/09/20 21:29 Dextrose (Dextrose 50%) 25 ml Q30M PRN IV Hypoglycemia 02/09/20 10:45 05/09/20 10:44 Dextrose (Dextrose 50%) 50 ml Q30M PRN IV Hypoglycemia 02/09/20 10:45 05/09/20 10:44 Enoxaparin Sodium (Lovenox) 40 mg DAILY SUBQ 02/09/20 09:00 05/09/20 08:59 02/09/20 08:59 Insulin Aspart (NovoLOG) BEFORE MEALS AND HS SUBQ 02/09/20 11:30 05/09/20 11:29 Metoprolol Succinate (Toprol XL) 50 mg BID ORAL 02/08/20 21:30 05/08/20 21:29 02/09/20 09:03 Assessment/Plan Assessment/Plan: (1) Left LE pain (2) Diabetic foot ulcer (3) Left LE cellulitis (4) Neuropathic pain Seen dictated. Bhanu Arenas Feb 09, 2020 10:57
--- NOTE | 2020-02-09 11:14 | Diagnostic Imaging Report ---
Indication: Left leg pain, edema, and cellulitis Technique: Grayscale and duplex images of the left lower extremity veins Comparison: 04/25/2018 Findings: On the left, grayscale and duplex images demonstrate hyperechoic mural thrombus within the femoral vein. This is not an erosive, but is resulting in complete compressibility. Distribution is similar to acute thrombus demonstrated on prior exam of 04/25/2018. Completely occlusive thrombus extends into the calf veins. The greater saphenous vein and common femoral vein are patent Impression: Evidence of chronic left lower extremity deep venous thrombus, distribution similar to acute thrombus associated on prior study of 04/25/2018. No definite acute deep venous thrombosis demonstrated.
[2020-02-09] MEDS: HYDROcodone/Acetamin 5/325 tab ORAL PRN ×3 (11:30→21:55)
--- NOTE | 2020-02-09 11:36 | Consultation ---
History of Present Illness General Chief Complaint: Lower Extremity Injury Present Illness Allergies: Coded Allergies: No Known Allergies (Unverified , 08/30/18) Medication History Scheduled Metoprolol Tartrate* (Metoprolol Tartrate*), 50 MG ORAL BID, (Reported) [Admelog], Unknown Dose SUBQ AC+HS, (Reported) [Basaglar], Unknown Dose SUBQ BEFORE MEALS AND HS, (Reported) Discontinued Medications Apixaban (Eliquis), 5 MG ORAL BID Discontinued Reason: Pt stopped taking med Apixaban (Eliquis), 2.5 MG PO QID Discontinued Reason: Pt stopped taking med Ciprofloxacin* (Cipro*), 500 MG PO BID, (Reported) Discontinued Reason: Pt stopped taking med Glipizide* (Glipizide*), 5 MG ORAL BIDAC, (Reported) Discontinued Reason: Pt stopped taking med Insulin Aspart (Novolog Flexpen), 8 SUBQ AC, (Reported) Discontinued Reason: Pt stopped taking med Insulin Aspart (Novolog Flexpen), (Reported) Discontinued Reason: Pt stopped taking med Insulin Detemir (Levemir Flextouch), 24 UNIT SQ DAILY, (Reported) Discontinued Reason: Pt stopped taking med Metformin Hcl* (Metformin Hcl*), 500 MG ORAL TID, (Reported) Discontinued Reason: Pt stopped taking med Permethrin* (Elimite*), 1 APPLIC TOPIC ONCE Discontinued Reason: Pt stopped taking med Quetiapine Fumarate* (Seroquel*), 100 MG ORAL QHS Discontinued Reason: Pt stopped taking med Trimethoprim/Sulfamethoxazole (Bactrim Ds Tablet), 1 TAB ORAL TWICE A DAY Discontinued Reason: Pt stopped taking med [basalgar] Discontinued Reason: Pt stopped taking med Patient History Healthcare decision maker Resuscitation status Advanced Directive on File Physical Exam Last 24 Hour Vital Signs Date Time Temp Pulse Resp B/P (MAP) Pulse Ox O2 Delivery O2 Flow Rate FiO2 02/09/20 09:03 70 140/70 02/09/20 08:00 97.7 70 18 140/70 (93) 99 02/09/20 04:00 97.6 67 18 145/68 (93) 99 02/09/20 00:00 98.3 89 18 122/68 (86) 96 02/08/20 21:47 Room Air 02/08/20 20:30 98.4 76 18 157/92 (113) 100 02/08/20 19:53 97.5 75 18 160/81 99 Room Air 02/08/20 18:43 97.5 75 18 160/81 99 Room Air 02/08/20 16:42 97.5 90 20 179/83 (115) 97 Room Air Intake and Output 02/08/20 02/09/20 19:00 07:00 Intake Total 0 ml 0 ml Balance 0 ml 0 ml Intake Oral 0 ml 0 ml # Voids 2 # Bowel Movements 1 Laboratory Tests Test 02/08/20 18:00 02/08/20 18:59 02/09/20 05:25 White Blood Count 7.1 K/UL (4.8-10.8) 8.1 K/UL (4.8-10.8) Red Blood Count 3.91 M/UL (4.70-6.10) L 3.67 M/UL (4.70-6.10) L Hemoglobin 12.3 G/DL (14.2-18.0) L 11.6 G/DL (14.2-18.0) L Hematocrit 37.4 % (42.0-52.0) L 35.6 % (42.0-52.0) L Mean Corpuscular Volume 96 FL (80-99) 97 FL (80-99) Mean Corpuscular Hemoglobin 31.4 PG (27.0-31.0) H 31.6 PG (27.0-31.0) H Mean Corpuscular Hemoglobin Concent 32.8 G/DL (32.0-36.0) 32.6 G/DL (32.0-36.0) Red Cell Distribution Width 13.1 % (11.6-14.8) 12.8 % (11.6-14.8) Platelet Count 394 K/UL (150-450) 323 K/UL (150-450) Mean Platelet Volume 7.9 FL (6.5-10.1) 7.9 FL (6.5-10.1) Neutrophils (%) (Auto) 53.8 % (45.0-75.0) 46.2 % (45.0-75.0) Lymphocytes (%) (Auto) 34.5 % (20.0-45.0) 40.4 % (20.0-45.0) Monocytes (%) (Auto) 6.1 % (1.0-10.0) 7.4 % (1.0-10.0) Eosinophils (%) (Auto) 3.7 % (0.0-3.0) H 4.2 % (0.0-3.0) H Basophils (%) (Auto) 1.9 % (0.0-2.0) 1.8 % (0.0-2.0) Sodium Level 138 MMOL/L (136-145) 140 MMOL/L (136-145) Potassium Level 4.5 MMOL/L (3.5-5.1) 3.8 MMOL/L (3.5-5.1) Chloride Level 102 MMOL/L (98-107) 104 MMOL/L (98-107) Carbon Dioxide Level 25 MMOL/L (21-32) 27 MMOL/L (21-32) Anion Gap 11 mmol/L (5-15) 9 mmol/L (5-15) Blood Urea Nitrogen 12 mg/dL (7-18) 12 mg/dL (7-18) Creatinine 1.2 MG/DL (0.55-1.30) 1.1 MG/DL (0.55-1.30) Estimat Glomerular Filtration Rate > 60 mL/min (>60) > 60 mL/min (>60) Glucose Level 355 MG/DL (74-106) H 82 MG/DL (74-106) # Lactic Acid Level 2.20 mmol/L (0.4-2.0) H 1.50 mmol/L (0.66-2.22) Calcium Level 9.1 MG/DL (8.5-10.1) 8.8 MG/DL (8.5-10.1) Total Bilirubin 0.2 MG/DL (0.2-1.0) 0.3 MG/DL (0.2-1.0) Aspartate Amino Transf (AST/SGOT) 16 U/L (15-37) 15 U/L (15-37) Alanine Aminotransferase (ALT/SGPT) 21 U/L (12-78) 13 U/L (12-78) Alkaline Phosphatase 97 U/L (46-116) 90 U/L (46-116) Total Protein 7.7 G/DL (6.4-8.2) 6.9 G/DL (6.4-8.2) Albumin 3.6 G/DL (3.4-5.0) 3.3 G/DL (3.4-5.0) L Globulin 4.1 g/dL 3.6 g/dL Albumin/Globulin Ratio 0.9 (1.0-2.7) L 0.9 (1.0-2.7) L Microbiology Date/Time Source Procedure Growth Status 02/08/20 18:00 Rectum Received Height (Feet): 6 Height (Inches): 4.00 Weight (Pounds): 210 Medications Current Medications Medications (Trade) Dose Ordered Sig/Fiorella Route PRN Reason Start Time Stop Time Status Last Admin Dose Admin Acetaminophen (Tylenol) 650 mg Q4H PRN ORAL Mild Pain (Pain Scale 1-3) 02/08/20 21:30 03/09/20 21:29 Acetaminophen/ Hydrocodone Bitart ([place] 5/325) 1 tab Q4H PRN ORAL severe pain 02/09/20 11:00 02/16/20 10:59 02/09/20 11:30 Dextrose (Dextrose 50%) 25 ml Q30M PRN IV Hypoglycemia 02/09/20 10:45 05/09/20 10:44 Dextrose (Dextrose 50%) 50 ml Q30M PRN IV Hypoglycemia 02/09/20 10:45 05/09/20 10:44 Enoxaparin Sodium (Lovenox) 40 mg DAILY SUBQ 02/09/20 09:00 05/09/20 08:59 02/09/20 08:59 Gabapentin (Neurontin) 300 mg THREE TIMES A DAY ORAL 02/09/20 11:00 03/10/20 10:59 02/09/20 11:29 Insulin Aspart (NovoLOG) BEFORE MEALS AND HS SUBQ 02/09/20 11:30 05/09/20 11:29 Metoprolol Succinate (Toprol XL) 50 mg BID ORAL 02/08/20 21:30 05/08/20 21:29 02/09/20 09:03 Assessment/Plan Assessment/Plan: Hematology Consultaiton DATE OF CONSULTATION: 02/09/2020 REFERRING PHYSICIAN: Mayra Flaherty REASON FOR CONSULTATION: Evaluation of DVT and thrombocytosis HPI Patient 54-year-old male who presented after increased left lower extremity pain. Patient reports having prior surgical removal of clot to his left lower extremity. The patient cannot state if this was arterial or venous. He reports having increased discomfort to his lower extremity. He noticed increased swelling. The patient had previously been hospitalized for infection of the right lower extremity. In 2018, completed course of eliquis and now started on lovenox sq Coded Allergies: No Known Allergies (Unverified , 04/25/18) Past Medical History: see triage record Reviewed Nursing Documentation: PMH: Agreed; PSxH: Agreed Hx Cardiac Problems: Yes - DVT on left leg Hx Hypertension: Yes Hx Diabetes: Yes Hx Cancer: No Hx Gastrointestinal Problems: No Hx Neurological Problems: No Review of Systems All Other Systems: negative except mentioned in HPI Physical Exam Sp02 EP Interpretation: reviewed, normal General Appearance: normal inspection Respiratory: normal inspection, lungs clear Cardiovascular: regular rate, rhythm, edema - left lower extremity Gastrointestinal: normal inspection, nml Bs Genitourinary: no CVA tenderness Musculoskeletal: normal inspection, back normal, left foot, swelling Skin: normal inspection, normal color Labs noted Imaigng: reviewed Assessment/Recs: # DVT of left lower extremity that is currently chronic was intiially diagnosed in 2018, i did see him at the time, did complete a 3 month eliquis course --> Arterial duplex study showed vascular insufficiency without evidence of peripheral artery disease without evidence of severe stenosis. --> given one dose of lovenox --> continue on ppx lovenox, has completed 3 months of anticoag # Anemia of chronic disease --> workup has been reviewed --> hgb 12-->11 # Thrombocytosis is likely reactive process --> 450-650k range repeat tomorrow # Accelerated hypertension. The patient is on metoprolol 50 mg b.i.d. at home daily to his medical regimen and add p.r.n. clonidine. # Diabetes, on metformin and insulin. # Diabetic foot ulcer. Currently is better # Diabetes per Dr. Raymond. MAR ROWLAND and appreciate consultation Gonzalo Hutson MD Feb 09, 2020 11:36
[2020-02-09] MEDS: NovoLOG Insulin Flexpen SUBQ SCH ×3 (12:08→20:51)
--- NOTE | 2020-02-09 15:25 | Diagnostic Imaging Report ---
Indication: Evaluation of PICC position Technique: One view of the chest Comparison: none Findings: Lungs and pleural spaces are clear. Heart size is normal. There is a right arm PICC, tip which projects at the level of the mid superior vena cava. Impression: No acute process Right arm PICC, as described
--- NOTE | 2020-02-09 16:00 | Consultation ---
DATE OF CONSULTATION: 02/09/2020 PAIN MANAGEMENT CONSULTATION CONSULTING PHYSICIAN: Trista Zamarripa MD. REFERRING PHYSICIAN: Mayra Vanegas MD. PHYSICIAN TRAFFIC ENUMERATOR: NAVID Healy. CHIEF COMPLAINT: Left lower extremity pain. HISTORY OF PRESENT ILLNESS: This is a 54-year-old male who has been seen on the Med/Surg floor of [facility] for initial pain management consultation. Patient was admitted under the care of Dr. Vanegas due to left lower extremity pain and is found to have cellulitis and diabetic foot ulcer. Recently admitted to the hospital where he had IV antibiotics started and was discharged with Tylenol no.3 with minimal pain relief. Due to this, we were consulted so that the patient would have adequate pain control while here in the hospital. He explained the pain was for 2 weeks, constant acute pain, rating at 9/10. He described the pain as throbbing aching pain, increased with certain movements and reduced with medication. He was given [place] in the hospital. Here is only on Tylenol. Due to this, we were consulted so that the patient would have adequate pain control while here in the hospital. PAST MEDICAL HISTORY: Diabetes mellitus, hypertension. PAST SURGICAL HISTORY: Left lower extremity. SOCIAL HISTORY: Denies smoking tobacco, drinking alcohol, or drug abuse. ALLERGIES: No known drug allergies. MEDICATIONS: Tylenol no. 3, Eliquis, Cipro, glipizide, metformin, Levemir, Seroquel. REVIEW OF SYSTEMS: Denies rash, fever, chills, sweating, dizziness, drowsiness, blurred vision, sore throat, or change in weight. No shortness of breath or chest pain. No nausea, vomiting, diarrhea, or blood in the stool. No dysuria. PHYSICAL EXAMINATION: GENERAL: Alert, awake, and oriented. VITAL SIGNS: Blood pressure 140/70, heart rate 70, oxygen saturation 99%, respirations 18, temperature 98 degrees Fahrenheit. HEENT: PERRLA. NECK: Range of motion is full in all directions. No tenderness to paracervical muscles. No adenopathy. LUNGS: Decreased breath sounds bilaterally. HEART: S1, S2 regular. ABDOMEN: Soft, nontender. BACK: Range of motion is full on flexion and extension. EXTREMITIES: Upper extremity range of motion is full in all directions. No cyanosis. No clubbing. No edema. Sensory is intact. Reflexes are not obtainable. No adenopathy. Lower extremity range of motion is decreased due to patient's condition. Swelling noted at the left lower extremity. Tenderness to palpation. Ulcer noted at the bottom of the foot on the soles by the toes. Sensory is reduced. Reflexes are not obtainable. No adenopathy. ASSESSMENT AND PLAN: This is a 54-year-old male with left lower extremity pain, diabetic foot ulcer, left lower extremity cellulitis, neuropathic pain. The patient will be started on [place] 5/325 one tablet every 4 hours as needed for severe pain and Neurontin 300 mg tablet three times a day. The patient was discussed with Dr. Zamarripa and Dr. Zamarripa concurred. We will follow up with the patient. Thank you very much for the courtesy of this consultation. Trista Zamarripa M.D. NAVID Healy DR: KATHRYN JOB#: [id number] CC: WEN
[2020-02-09] MEDS: Vancomycin 1gm/D5W 275ml IVPB SCH ×4 (16:18→21:55)
--- NOTE | 2020-02-09 19:45 | History and Physical Report ---
DATE OF ADMISSION: 02/08/2020 HISTORY OF PRESENT ILLNESS: The patient basically comes in complaining of pain and open wound in the left foot and ankle area. The patient came in with a PICC line, but was unable to finish his IV antibiotic course. The patient denies shortness of breath. Denies fever or chills. Denies nausea, vomiting, or diarrhea. The patient was also recently hospitalized for the same problem. The patient does have history of diabetes, so is being treated for diabetic foot ulcer/cellulitis. PAST MEDICAL HISTORY: Diabetes, history of diabetic foot ulcer, and history of hypertension. The patient apparently has history of DVT. MEDICATIONS: Metoprolol Basaglar, dose unknown. SOCIAL HISTORY: Denies history of alcohol or drug abuse. Does have history of smoking. FAMILY HISTORY: Noncontributory. REVIEW OF SYSTEMS: HEENT: Denies headaches. PULMONARY: Denies shortness of breath. Denies cough. CARDIOVASCULAR: Denies chest pain. GASTROINTESTINAL: Denies nausea, vomiting, or diarrhea. EXTREMITIES: Reports pain, especially in the left foot where the infection is. CENTRAL NERVOUS SYSTEM: Denies change in speech pattern. PHYSICAL EXAMINATION: VITAL SIGNS: Temperature is 98.3, pulse 89, blood pressure 132/68. HEENT: PERRLA. CHEST: Clear to auscultation. CARDIOVASCULAR: Regular rate and rhythm. No murmurs or extra sounds. GASTROINTESTINAL: Soft, nontender, and nondistended. No organomegaly. EXTREMITIES: Does have cellulitis. Warm to touch and erythema. An open wound on the left lower extremity in the left foot. Dorsalis pedis pulses are present. Able to move his extremities. LABORATORY DATA: WBC of 7.1, hemoglobin 12.3, platelets 394,000. Sodium 138, potassium 4.5, BUN of 12, creatinine 1.2, glucose of 355. ASSESSMENT AND PLAN: Diabetic foot ulcer and cellulitis. I have consulted Dr. Anguiano's team as well as Dr. Claude Hernandez for that and for DVT, Dr. Hutson has been consulted. We will monitor the patient closely and also we will consult Dr. Zamarripa for pain management. Mayra Vanegas M.D. DR: MO JOB#: [id number] CC:
[2020-02-09] MEDS: Dyna-Hex 2% Top Sol 2oz TOPIC SCH (20:00)
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
[2020-02-10] VITALS: BP 142/70
[2020-02-10 04:00] VITALS: BP 139/67
[2020-02-10] MEDS: Vancomycin 1gm/D5W 275ml IVPB SCH ×6 (05:45→22:06)
[2020-02-10] MEDS: NovoLOG Insulin Flexpen SUBQ SCH ×4 (06:08→20:35)
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
[2020-02-10 08:00] VITALS: BP 144/72
[2020-02-10] MEDS: Enoxaparin 40mg Inj SUBQ SCH (08:55)
[2020-02-10] MEDS: Metoprolol Succinate XL 50mg tab ORAL SCH ×2 (08:57→17:20)
[2020-02-10 12:00] VITALS: BP 168/77
--- NOTE | 2020-02-10 12:08 | General Progress Note ---
Assessment/Plan Problem List: (1) Cellulitis of lower extremity ICD Codes: L03.119 - Cellulitis of unspecified part of limb SNOMED: 584685477 Qualifiers: Qualified Codes: L03.116 - Cellulitis of left lower limb (2) Diabetic foot ulcer ICD Codes: E11.621 - Type 2 diabetes mellitus with foot ulcer; L97.509 - Non- pressure chronic ulcer of other part of unspecified foot with unspecified severity SNOMED: 930611951, 84069019 Qualifiers: Qualified Codes: E08.621 - Diabetes mellitus due to underlying condition with foot ulcer; L97.421 - Non-pressure chronic ulcer of left heel and midfoot limited to breakdown of skin (3) Diabetes ICD Codes: E11.9 - Type 2 diabetes mellitus without complications SNOMED: 74837507, 076821228 Status: stable, progressing Assessment/Plan: bs vila control wound care abx cbc bmp am Subjective Constitutional: Reports: weakness Allergies: Coded Allergies: No Known Allergies (Unverified , 08/30/18) All Systems: reviewed and negative except above Subjective sitting calm Objective Last 24 Hour Vital Signs Date Time Temp Pulse Resp B/P (MAP) Pulse Ox O2 Delivery O2 Flow Rate FiO2 02/10/20 09:00 Room Air 02/10/20 08:57 66 144/72 02/10/20 08:00 98.2 66 18 144/72 (96) 99 02/10/20 04:00 97.5 72 18 139/67 (91) 99 02/10/20 00:00 98.0 67 18 142/70 (94) 99 02/09/20 22:25 98.1 02/09/20 21:00 Room Air 02/09/20 20:00 98.1 65 18 159/71 (100) 100 02/09/20 17:30 62 148/84 02/09/20 16:00 97.7 62 19 148/84 (105) 100 02/09/20 14:24 63 131/79 (96) 02/09/20 12:30 97.0 69 20 167/85 (112) 99 Intake and Output 02/09/20 02/10/20 19:00 07:00 Intake Total 1200 ml Balance 1200 ml Intake Oral 1200 ml # Voids 8 2 # Bowel Movements 1 Laboratory Tests 02/09/20 17:10: POC Whole Blood Glucose 252H Height (Feet): 6 Height (Inches): 4.00 Weight (Pounds): 210 General Appearance: lethargic EENT: normal ENT inspection Neck: normal alignment Cardiovascular: normal peripheral pulses, normal rate, regular rhythm Respiratory/Chest: chest wall non-tender, lungs clear, normal breath sounds Abdomen: normal bowel sounds, non tender, soft Extremities: normal inspection Edema: no edema noted Arm (L), no edema noted Arm (R), no edema noted Leg (L), no edema noted Leg (R), no edema noted Pedal (L), no edema noted Pedal (R), no edema noted Generalized Neurologic: motor weakness Skin: normal pigmentation, warm/dry Diego Dave DO Feb 10, 2020 12:08
[2020-02-10] MEDS: HYDROcodone/Acetamin 5/325 tab ORAL PRN ×2 (13:09→22:07)
--- NOTE | 2020-02-10 13:49 | Consultation ---
History of Present Illness General Date patient seen: Feb 10, 2020 Reason for Hospitalization: Lower Extremity Injury Present Illness HPI 54-year-old male with a hx of smoking HTN and poorly controlled DM presents to the emergency department complaining of 7 out of 10 severity pain, swelling and open wound to left foot and ankle. Pt. also c/o inability to finish course of IV antibiotics via PICC line x3 days. Patient reports that he is not sure what type of antibiotic he was receiving. He denies fevers or chills. He reports increase in pain. Patient reports he was hospitalized last month for infection and complication to the left foot. He denies trauma or fall. Pt. reports hx of DM neuropathy. Patient seen patient examined chart reviewed. Surgery called to evaluate given cellulitis of the left foot and ankle. Patient states that he was at [facility] for evaluation was transferred to [place] which time he was told he has osteomyelitis and has been on antibiotics did have an incision and drainage as well. States he has not been improving significantly since no nausea vomiting fever chills Allergies: Coded Allergies: No Known Allergies (Unverified , 08/30/18) COVID-19 Screening Contact w/high risk pt: No Recent Travel to affected area: No Experienced COVID-19 symptoms?: No Medication History Scheduled Metoprolol Tartrate* (Metoprolol Tartrate*), 50 MG ORAL BID, (Reported) [Admelog], Unknown Dose SUBQ AC+HS, (Reported) [Basaglar], Unknown Dose SUBQ BEFORE MEALS AND HS, (Reported) Discontinued Medications Apixaban (Eliquis), 5 MG ORAL BID Discontinued Reason: Pt stopped taking med Apixaban (Eliquis), 2.5 MG PO QID Discontinued Reason: Pt stopped taking med Ciprofloxacin* (Cipro*), 500 MG PO BID, (Reported) Discontinued Reason: Pt stopped taking med Glipizide* (Glipizide*), 5 MG ORAL BIDAC, (Reported) Discontinued Reason: Pt stopped taking med Insulin Aspart (Novolog Flexpen), 8 SUBQ AC, (Reported) Discontinued Reason: Pt stopped taking med Insulin Aspart (Novolog Flexpen), (Reported) Discontinued Reason: Pt stopped taking med Insulin Detemir (Levemir Flextouch), 24 UNIT SQ DAILY, (Reported) Discontinued Reason: Pt stopped taking med Metformin Hcl* (Metformin Hcl*), 500 MG ORAL TID, (Reported) Discontinued Reason: Pt stopped taking med Permethrin* (Elimite*), 1 APPLIC TOPIC ONCE Discontinued Reason: Pt stopped taking med Quetiapine Fumarate* (Seroquel*), 100 MG ORAL QHS Discontinued Reason: Pt stopped taking med Trimethoprim/Sulfamethoxazole (Bactrim Ds Tablet), 1 TAB ORAL TWICE A DAY Discontinued Reason: Pt stopped taking med [basalgar] Discontinued Reason: Pt stopped taking med Patient History History Provided By: Patient, Medical Record, PMD Healthcare decision maker Resuscitation status Advanced Directive on File Past Medical/Surgical History Past Medical/Surgical History: (1) Diabetic foot ulcer (2) Cellulitis of lower extremity (3) Diabetes (4) Rash (5) Hyperglycemia (6) Rash and other nonspecific skin eruption (7) DVT (deep venous thrombosis) (8) Hypertension (9) Medication refill (10) Noncompliance with medication regimen (11) Diabetes mellitus out of control (12) Cellulitis of left foot Review of Systems Review of Symptoms General ROS: no weight loss or fever Psychological ROS: no depression or mood changes, no memory loss Ophthalmic ROS: no visual changes or eye irritation ENT ROS: no nasal congestion, hearing loss, dizziness Allergy and Immunology ROS: no allergic symptoms or urticaria Hematological and Lymphatic ROS: no swollen glands, unusual bleeding or bruising Endocrine ROS: no polyuria, polydipsia, weight changes, temperature intolerance Respiratory ROS: no cough, shortness of breath, or wheezing Cardiovascular ROS: no chest pain or dyspnea on exertion Gastrointestinal ROS: denies abdominal pain, bright red blood in stool. Musculoskeletal ROS: no myalgias or arthralgias Neurological ROS: no TIA or stroke symptoms Dermatological ROS: no new or changing skin lesions, rashes or pruritis Physical Exam Physical Exam General appearance: alert, cooperative, no distress, appears stated age Head: Normocephalic, without obvious abnormality, atraumatic Eyes: conjunctivae/corneas clear. PERRL, EOM's intact. Fundi benign Throat: Lips, mucosa, and tongue normal. Teeth and gums normal Neck: supple, symmetrical, trachea midline, no adenopathy, thyroid: not enlarged, symmetric, no tenderness/mass/nodules, no carotid bruit and no JVD Lungs: clear to auscultation bilaterally Heart: regular rate and rhythm, S1, S2 normal, no murmur, click, rub or gallop Abdomen: soft, non-tender. Bowel sounds normal. No masses, no organomegaly Extremities: extremities left foot and ankle edema. On the plantar aspect of the left foot distal midfoot there is a 1 cm opening tunneling 1/2 cm from recent incision and drainage. No active drainage currently. Dressings intact. Pulses: 2+ and symmetric Skin: Skin color, texture, turgor normal. No rashes or lesions Neurologic: Grossly normal Last 24 Hour Vital Signs Date Time Temp Pulse Resp B/P (MAP) Pulse Ox O2 Delivery O2 Flow Rate FiO2 02/10/20 12:00 97.5 63 16 168/77 (107) 100 02/10/20 09:00 Room Air 02/10/20 08:57 66 144/72 02/10/20 08:00 98.2 66 18 144/72 (96) 99 02/10/20 04:00 97.5 72 18 139/67 (91) 99 02/10/20 00:00 98.0 67 18 142/70 (94) 99 02/09/20 22:25 98.1 02/09/20 21:00 Room Air 02/09/20 20:00 98.1 65 18 159/71 (100) 100 02/09/20 17:30 62 148/84 02/09/20 16:00 97.7 62 19 148/84 (105) 100 02/09/20 14:24 63 131/79 (96) Intake and Output 02/09/20 02/10/20 19:00 07:00 Intake Total 1200 ml Balance 1200 ml Intake Oral 1200 ml # Voids 8 2 # Bowel Movements 1 Laboratory Tests Test 02/09/20 17:10 02/10/20 12:35 POC Whole Blood Glucose 252 MG/DL (74-106) H Vancomycin Level Trough 16.4 ug/mL (5.0-12.0) H Height (Feet): 6 Height (Inches): 4.00 Weight (Pounds): 210 Medications Current Medications Medications (Trade) Dose Ordered Sig/Fiorella Route PRN Reason Start Time Stop Time Status Last Admin Dose Admin Acetaminophen (Tylenol) 650 mg Q4H PRN ORAL Mild Pain (Pain Scale 1-3) 02/08/20 21:30 03/09/20 21:29 Acetaminophen/ Hydrocodone Bitart ([place] 5/325) 1 tab Q4H PRN ORAL severe pain 02/09/20 11:00 02/16/20 10:59 02/10/20 13:09 Chlorhexidine Gluconate (Mary-Hex 2%) 1 applic DAILY@2000 TOPIC 02/09/20 20:00 05/09/20 19:59 02/09/20 20:00 Dextrose (Dextrose 50%) 25 ml Q30M PRN IV Hypoglycemia 02/09/20 10:45 05/09/20 10:44 Dextrose (Dextrose 50%) 50 ml Q30M PRN IV Hypoglycemia 02/09/20 10:45 05/09/20 10:44 Enoxaparin Sodium (Lovenox) 40 mg DAILY SUBQ 02/09/20 09:00 05/09/20 08:59 02/10/20 08:55 Gabapentin (Neurontin) 300 mg THREE TIMES A DAY ORAL 02/09/20 11:00 03/10/20 10:59 02/10/20 12:23 Insulin Aspart (NovoLOG) BEFORE MEALS AND HS SUBQ 02/09/20 11:30 05/09/20 11:29 02/10/20 11:58 Metoprolol Succinate (Toprol XL) 50 mg BID ORAL 02/08/20 21:30 05/08/20 21:29 02/09/20 17:30 Vancomycin HCl (Vanco pharmacy to dose) 1 ea DAILY PRN MISC Per rx protocol 02/09/20 12:30 03/10/20 12:29 Vancomycin HCl 1 gm/Dextrose 275 ml @ 183.708 mls/hr Q8H IVPB 02/09/20 14:00 02/14/20 13:59 02/10/20 13:10 Assessment/Plan Problem List: (1) Diabetic foot ulcer ICD Codes: E11.621 - Type 2 diabetes mellitus with foot ulcer; L97.509 - Non- pressure chronic ulcer of other part of unspecified foot with unspecified severity SNOMED: 115876231, 74064115 Qualifiers: Qualified Codes: E08.621 - Diabetes mellitus due to underlying condition with foot ulcer; L97.421 - Non-pressure chronic ulcer of left heel and midfoot limited to breakdown of skin (2) Cellulitis of lower extremity Assessment & Plan: Pt presented on admission with edema LLE.Non-Pitting edema with increased warmth noted. Full Thickness Ulcer Plantar L foot (L)1.3cm x (W)1.5cm x (D)0.4cm. Wound has punched out appearance. Biofilm at base of wound. Callused borders. Small amt serosanguineous exudate.No odor noted. A dark area which tracks from base of wound to base of L 4th and 5th metatarsals. Per pt, he has wound for approx 2 months. Pt also stated wound drains heavily during ambulation. Plain films ordered. Antibiotics per infectious disease. Right arm PIC in place. Tx.Plan: Cleanse with Saline. Apply Silvasorb Gel.Apply Cavilon Skin Barrier Periwound. Cover with Optifoam drsg Daily and PRN. ICD Codes: L03.119 - Cellulitis of unspecified part of limb SNOMED: 629102752 Qualifiers: Qualified Codes: L03.116 - Cellulitis of left lower limb (3) Diabetes ICD Codes: E11.9 - Type 2 diabetes mellitus without complications SNOMED: 76728978, 943800160 (4) Rash ICD Codes: R21 - Rash and other nonspecific skin eruption SNOMED: 797838320 (5) Hyperglycemia ICD Codes: R73.9 - Hyperglycemia, unspecified SNOMED: 07036481, 272223320 (6) Rash and other nonspecific skin eruption ICD Codes: R21 - Rash and other nonspecific skin eruption SNOMED: 077161316, 679733531 (7) DVT (deep venous thrombosis) ICD Codes: I82.409 - Acute embolism and thrombosis of unspecified deep veins of unspecified lower extremity SNOMED: 375124470 (8) Hypertension ICD Codes: I10 - Essential (primary) hypertension SNOMED: 48067719 (9) Medication refill ICD Codes: Z76.0 - Encounter for issue of repeat prescription SNOMED: 481302922, 721625817 (10) Noncompliance with medication regimen ICD Codes: Z91.14 - Patient's other noncompliance with medication regimen SNOMED: 040935417, 257353795 (11) Diabetes mellitus out of control ICD Codes: E11.65 - Type 2 diabetes mellitus with hyperglycemia SNOMED: 43020830, 843463900 (12) Cellulitis of left foot ICD Codes: L03.116 - Cellulitis of left lower limb SNOMED: 698384674 Joe Shannon Feb 10, 2020 13:49
[2020-02-10 16:00] VITALS: BP 137/83
[2020-02-10 20:00] VITALS: BP 159/81
[2020-02-10] MEDS: Dyna-Hex 2% Top Sol 2oz TOPIC SCH (20:00)
[2020-02-11] VITALS: BP 145/78
[2020-02-11 04:00] VITALS: BP 127/58
[2020-02-11 05:28] LABS: BASOPHILS % (AUTO) 1.4 % (0.0-2.0); EOSINOPHILS % (AUTO) 4.6 % (0.0-3.0); HEMATOCRIT 33.7 % (42.0-52.0); HEMOGLOBIN 10.9 G/DL (14.2-18.0); LYMPHOCYTES % (AUTO) 49.2 % (20.0-45.0); MEAN CORPUSCULAR VOLUME 97 FL (80-99); MONOCYTES % (AUTO) 6.9 % (1.0-10.0); PLATELET COUNT 306 K/UL (150-450); RED BLOOD COUNT 3.48 M/UL (4.70-6.10); RED CELL DISTRIBUTION WIDTH 12.7 % (11.6-14.8); WHITE BLOOD COUNT 5.5 K/UL (4.8-10.8)
[2020-02-11 05:37] LABS: ANION GAP 7 mmol/L (5-15); BLOOD UREA NITROGEN 15 mg/dL (7-18); CALCIUM 9.1 MG/DL (8.5-10.1); CARBON DIOXIDE 29 MMOL/L (21-32); CHLORIDE 101 MMOL/L (98-107); CREATININE 1.3 MG/DL (0.55-1.30); POTASSIUM 4.4 MMOL/L (3.5-5.1); SODIUM 137 MMOL/L (136-145)
[2020-02-11] MEDS: Vancomycin 1gm/D5W 275ml IVPB SCH ×6 (05:46→21:05)
[2020-02-11] MEDS: HYDROcodone/Acetamin 5/325 tab ORAL PRN ×2 (05:51→22:08)
[2020-02-11] MEDS: NovoLOG Insulin Flexpen SUBQ SCH ×4 (05:58→21:14)
[2020-02-11 08:00] VITALS: BP 145/78
[2020-02-11] MEDS: Metoprolol Succinate XL 50mg tab ORAL SCH ×2 (08:38→17:19)
[2020-02-11] MEDS: Enoxaparin 40mg Inj SUBQ SCH (08:41)
--- NOTE | 2020-02-11 10:02 | General Progress Note ---
Assessment/Plan Problem List: (1) Cellulitis of lower extremity ICD Codes: L03.119 - Cellulitis of unspecified part of limb SNOMED: 646560796 Qualifiers: Qualified Codes: L03.116 - Cellulitis of left lower limb (2) Diabetic foot ulcer ICD Codes: E11.621 - Type 2 diabetes mellitus with foot ulcer; L97.509 - Non- pressure chronic ulcer of other part of unspecified foot with unspecified severity SNOMED: 376879322, 70844173 Qualifiers: Qualified Codes: E08.621 - Diabetes mellitus due to underlying condition with foot ulcer; L97.421 - Non-pressure chronic ulcer of left heel and midfoot limited to breakdown of skin (3) Diabetes ICD Codes: E11.9 - Type 2 diabetes mellitus without complications SNOMED: 42578438, 425585310 Status: stable, progressing Assessment/Plan: bs vila control wound care abx cbc bmp am Subjective Constitutional: Reports: weakness Allergies: Coded Allergies: No Known Allergies (Unverified , 08/30/18) All Systems: reviewed and negative except above Subjective sleepy calm Objective Last 24 Hour Vital Signs Date Time Temp Pulse Resp B/P (MAP) Pulse Ox O2 Delivery O2 Flow Rate FiO2 02/11/20 09:00 Room Air 02/11/20 08:38 62 145/78 02/11/20 08:00 97.9 62 18 145/78 (100) 99 02/11/20 06:23 98.1 02/11/20 04:00 98.1 68 18 127/58 (81) 99 02/11/20 00:00 97.9 68 18 145/78 (100) 98 02/10/20 21:44 Room Air 02/10/20 20:00 98.4 64 18 159/81 (107) 95 02/10/20 17:20 69 137/83 02/10/20 16:00 98.5 69 17 137/83 (101) 99 02/10/20 12:00 97.5 63 16 168/77 (107) 100 Intake and Output 02/10/20 02/11/20 19:00 07:00 Intake Total 900 ml Balance 900 ml Other 900 ml # Voids 2 Laboratory Tests 02/10/20 12:35: Vancomycin Level Trough 16.4H 02/11/20 05:00: White Blood Count 5.5, Red Blood Count 3.48L, Hemoglobin 10.9L, Hematocrit 33.7L , Mean Corpuscular Volume 97, Mean Corpuscular Hemoglobin 31.4H, Mean Corpuscular Hemoglobin Concent 32.4, Red Cell Distribution Width 12.7, Platelet Count 306, Mean Platelet Volume 7.9, Neutrophils (%) (Auto) 38.0L, Lymphocytes ( %) (Auto) 49.2H, Monocytes (%) (Auto) 6.9, Eosinophils (%) (Auto) 4.6H, Basophils (%) (Auto) 1.4, Sodium Level 137, Potassium Level 4.4, Chloride Level 101, Carbon Dioxide Level 29, Anion Gap 7, Blood Urea Nitrogen 15, Creatinine 1.3, Estimat Glomerular Filtration Rate > 60, Glucose Level 318H, Calcium Level 9.1 Height (Feet): 6 Height (Inches): 4.00 Weight (Pounds): 210 General Appearance: lethargic EENT: normal ENT inspection Neck: normal alignment Cardiovascular: normal peripheral pulses, normal rate, regular rhythm Respiratory/Chest: chest wall non-tender, lungs clear, normal breath sounds Abdomen: normal bowel sounds, non tender, soft Extremities: normal inspection Edema: no edema noted Arm (L), no edema noted Arm (R), no edema noted Leg (L), no edema noted Leg (R), no edema noted Pedal (L), no edema noted Pedal (R), no edema noted Generalized Neurologic: motor weakness Skin: normal pigmentation, warm/dry Diego Dave DO Feb 11, 2020 10:02
--- NOTE | 2020-02-11 10:30 | Surgery Progress Note ---
Surgery Progress Note Subjective Symptoms: improved, tolerating diet, voiding well, passing flatus, pain decreased Objective Last 24 Hour Vital Signs Date Time Temp Pulse Resp B/P (MAP) Pulse Ox O2 Delivery O2 Flow Rate FiO2 02/11/20 09:00 Room Air 02/11/20 08:38 62 145/78 02/11/20 08:00 97.9 62 18 145/78 (100) 99 02/11/20 06:23 98.1 02/11/20 04:00 98.1 68 18 127/58 (81) 99 02/11/20 00:00 97.9 68 18 145/78 (100) 98 02/10/20 21:44 Room Air 02/10/20 20:00 98.4 64 18 159/81 (107) 95 02/10/20 17:20 69 137/83 02/10/20 16:00 98.5 69 17 137/83 (101) 99 02/10/20 12:00 97.5 63 16 168/77 (107) 100 I&O Intake and Output 02/10/20 02/11/20 19:00 07:00 Intake Total 900 ml Balance 900 ml Other 900 ml # Voids 2 Dressing: dry Wound: clean Cardiovascular: RSR Respiratory: clear Abdomen: soft, non-tender, present bowel sounds Extremities: edema, tenderness, no cyanosis, pulses, other Laboratory Tests Test 02/10/20 12:35 02/11/20 05:00 Vancomycin Level Trough 16.4 ug/mL (5.0-12.0) H White Blood Count 5.5 K/UL (4.8-10.8) Red Blood Count 3.48 M/UL (4.70-6.10) L Hemoglobin 10.9 G/DL (14.2-18.0) L Hematocrit 33.7 % (42.0-52.0) L Mean Corpuscular Volume 97 FL (80-99) Mean Corpuscular Hemoglobin 31.4 PG (27.0-31.0) H Mean Corpuscular Hemoglobin Concent 32.4 G/DL (32.0-36.0) Red Cell Distribution Width 12.7 % (11.6-14.8) Platelet Count 306 K/UL (150-450) Mean Platelet Volume 7.9 FL (6.5-10.1) Neutrophils (%) (Auto) 38.0 % (45.0-75.0) L Lymphocytes (%) (Auto) 49.2 % (20.0-45.0) H Monocytes (%) (Auto) 6.9 % (1.0-10.0) Eosinophils (%) (Auto) 4.6 % (0.0-3.0) H Basophils (%) (Auto) 1.4 % (0.0-2.0) Sodium Level 137 MMOL/L (136-145) Potassium Level 4.4 MMOL/L (3.5-5.1) Chloride Level 101 MMOL/L (98-107) Carbon Dioxide Level 29 MMOL/L (21-32) Anion Gap 7 mmol/L (5-15) Blood Urea Nitrogen 15 mg/dL (7-18) Creatinine 1.3 MG/DL (0.55-1.30) Estimat Glomerular Filtration Rate > 60 mL/min (>60) Glucose Level 318 MG/DL (74-106) H Calcium Level 9.1 MG/DL (8.5-10.1) Plan Problems: (1) Diabetic foot ulcer (2) Cellulitis of lower extremity Assessment & Plan: Pt presented on admission with edema LLE.Non-Pitting edema with increased warmth noted. Full Thickness Ulcer Plantar L foot (L)1.3cm x (W)1.5cm x (D)0.4cm. Wound has punched out appearance. Biofilm at base of wound. Callused borders. Small amt serosanguineous exudate.No odor noted. A dark area which tracks from base of wound to base of L 4th and 5th metatarsals. Per pt, he has wound for approx 2 months. Pt also stated wound drains heavily during ambulation. MRI ordered. Antibiotics per infectious disease. Right arm PIC in place. Tx.Plan: Cleanse with Saline. Apply Silvasorb Gel.Apply Cavilon Skin Barrier Periwound. Cover with Optifoam drsg Daily and PRN. pending MRI cont abx (3) Diabetes (4) Rash (5) Hyperglycemia (6) Rash and other nonspecific skin eruption (7) DVT (deep venous thrombosis) (8) Hypertension (9) Medication refill (10) Noncompliance with medication regimen (11) Diabetes mellitus out of control (12) Cellulitis of left foot Joe Shannon Feb 11, 2020 10:30
--- NOTE | 2020-02-11 11:12 | General Progress Note ---
Assessment/Plan Assessment/Plan: (1) Left LE pain (2) Diabetic foot ulcer (3) Left LE cellulitis (4) Neuropathic pain Continue norco as needed d/w Dr. Zamarripa and he concurred. Subjective Date patient seen: Feb 11, 2020 Time patient seen: 10:00 Constitutional: Reports: no symptoms HEENT: Reports: no symptoms Cardiovascular: Reports: no symptoms Respiratory: Reports: no symptoms Gastrointestinal/Abdominal: Reports: no symptoms Genitourinary: Reports: no symptoms Neurologic/Psychiatric: Reports: no symptoms Endocrine: Reports: no symptoms Hematologic/Lymphatic: Reports: no symptoms Allergies: Coded Allergies: No Known Allergies (Unverified , 08/30/18) Subjective patient Reports that he is doing well and is it tolerating the pain and the [place] at this time reports that prior to the medication his pain was a 10 out of 10 now its a five out of 10 is comfortable continuing the IV antibiotics as per the infectious disease doctor. Objective Last 24 Hour Vital Signs Date Time Temp Pulse Resp B/P (MAP) Pulse Ox O2 Delivery O2 Flow Rate FiO2 02/11/20 09:00 Room Air 02/11/20 08:38 62 145/78 02/11/20 08:00 97.9 62 18 145/78 (100) 99 02/11/20 06:23 98.1 02/11/20 04:00 98.1 68 18 127/58 (81) 99 02/11/20 00:00 97.9 68 18 145/78 (100) 98 02/10/20 21:44 Room Air 02/10/20 20:00 98.4 64 18 159/81 (107) 95 02/10/20 17:20 69 137/83 02/10/20 16:00 98.5 69 17 137/83 (101) 99 02/10/20 12:00 97.5 63 16 168/77 (107) 100 Intake and Output 02/10/20 02/11/20 19:00 07:00 Intake Total 900 ml Balance 900 ml Other 900 ml # Voids 2 Laboratory Tests 02/10/20 12:35: Vancomycin Level Trough 16.4H 02/11/20 05:00: White Blood Count 5.5, Red Blood Count 3.48L, Hemoglobin 10.9L, Hematocrit 33.7L , Mean Corpuscular Volume 97, Mean Corpuscular Hemoglobin 31.4H, Mean Corpuscular Hemoglobin Concent 32.4, Red Cell Distribution Width 12.7, Platelet Count 306, Mean Platelet Volume 7.9, Neutrophils (%) (Auto) 38.0L, Lymphocytes ( %) (Auto) 49.2H, Monocytes (%) (Auto) 6.9, Eosinophils (%) (Auto) 4.6H, Basophils (%) (Auto) 1.4, Sodium Level 137, Potassium Level 4.4, Chloride Level 101, Carbon Dioxide Level 29, Anion Gap 7, Blood Urea Nitrogen 15, Creatinine 1.3, Estimat Glomerular Filtration Rate > 60, Glucose Level 318H, Calcium Level 9.1 Height (Feet): 6 Height (Inches): 4.00 Weight (Pounds): 210 General Appearance: no apparent distress, alert EENT: PERRL/EOMI Neck: non-tender, normal alignment Cardiovascular: normal rate, regular rhythm Respiratory/Chest: decreased breath sounds Abdomen: non tender, soft Extremities: calf tenderness Edema: 1+ Arm (R); no edema noted Leg (R); 3+ Pedal (L) Edema: trace edema Neurologic: alert, oriented x 3 Lymphatic: tender anterior cervical (R) Bhanu Arenas Feb 11, 2020 11:12
[2020-02-11 11:57] VITALS: BP 140/70
--- NOTE | 2020-02-11 13:04 | Hematology/Onc Progress Note ---
Assessment/Plan Assessment/Plan Assessment/Recs: # DVT of left lower extremity that is currently chronic was intiially diagnosed in 2018, i did see him at the time, did complete a 3 month eliquis course --> Arterial duplex study showed vascular insufficiency without evidence of peripheral artery disease without evidence of severe stenosis. --> given one dose of lovenox --> continue on ppx lovenox, has completed 3 months of anticoag # Anemia of chronic disease --> workup has been reviewed --> hgb 12-->11 # Thrombocytosis is likely reactive process --> 450-650k range repeat tomorrow # Accelerated hypertension. The patient is on metoprolol 50 mg b.i.d. at home daily to his medical regimen and add p.r.n. clonidine. # Diabetes, on metformin and insulin. # Diabetic foot ulcer. Currently is better # Diabetes per Dr. Raymond. MAR RN and appreciate consultation Subjective Constitutional: Denies: no symptoms, chills, fever, malaise, weakness, other HEENT: Denies: no symptoms, eye pain, blurred vision, tearing, double vision, ear pain, ear discharge, nose pain, nose congestion, throat pain, throat swelling, mouth pain, mouth swelling, other Cardiovascular: Denies: no symptoms, chest pain, edema, irregular heart rate, lightheadedness, palpitations, syncope, other Respiratory: Denies: no symptoms, cough, shortness of breath, SOB with excertion, SOB at rest, sputum, wheezing, other Genitourinary: Denies: no symptoms, burning, discharge, frequency, flank pain, hematuria, incontinence, pain, urgency, other Neurologic/Psychiatric: Denies: no symptoms, anxiety, depressed, emotional problems, headache, numbness, paresthesia, pre-existing deficit, seizure, tingling, tremors, weakness, other Endocrine: Denies: no symptoms, excessive sweating, flushing, intolerance to cold, intolerance to heat, increased hunger, increased thirst, increased urine, unexplained weight gain, unexplained weight loss, other Hematologic/Lymphatic: Denies: no symptoms, anemia, easy bleeding, easy bruising, adenopathy, other Allergies: Coded Allergies: No Known Allergies (Unverified , 08/30/18) Subjective 02/10 in bed, with picc, alert, no bleeding, meds reviewed Objective Objective Current Medications Medications (Trade) Dose Ordered Sig/Fiorella Route PRN Reason Start Time Stop Time Status Last Admin Dose Admin Acetaminophen (Tylenol) 650 mg Q4H PRN ORAL Mild Pain (Pain Scale 1-3) 02/08/20 21:30 03/09/20 21:29 Acetaminophen/ Hydrocodone Bitart ([place] 5/325) 1 tab Q4H PRN ORAL severe pain 02/09/20 11:00 02/16/20 10:59 02/11/20 05:51 Chlorhexidine Gluconate (Mary-Hex 2%) 1 applic DAILY@2000 TOPIC 02/09/20 20:00 05/09/20 19:59 02/10/20 20:00 Dextrose (Dextrose 50%) 25 ml Q30M PRN IV Hypoglycemia 02/09/20 10:45 05/09/20 10:44 Dextrose (Dextrose 50%) 50 ml Q30M PRN IV Hypoglycemia 02/09/20 10:45 05/09/20 10:44 Enoxaparin Sodium (Lovenox) 40 mg DAILY SUBQ 02/09/20 09:00 05/09/20 08:59 02/11/20 08:41 Gabapentin (Neurontin) 300 mg THREE TIMES A DAY ORAL 02/09/20 11:00 03/10/20 10:59 02/11/20 08:38 Insulin Aspart (NovoLOG) BEFORE MEALS AND HS SUBQ 02/09/20 11:30 05/09/20 11:29 02/11/20 12:10 Metoprolol Succinate (Toprol XL) 50 mg BID ORAL 02/08/20 21:30 05/08/20 21:29 02/11/20 08:38 Vancomycin HCl ([facility] pharmacy to dose) 1 ea DAILY PRN MISC Per rx protocol 02/09/20 12:30 03/10/20 12:29 Vancomycin HCl 1 gm/Dextrose 275 ml @ 183.708 mls/hr Q8H IVPB 02/09/20 14:00 02/14/20 13:59 02/11/20 05:46 Last 24 Hour Vital Signs Date Time Temp Pulse Resp B/P (MAP) Pulse Ox O2 Delivery O2 Flow Rate FiO2 02/11/20 11:57 97.9 58 18 140/70 (93) 99 02/11/20 09:00 Room Air 02/11/20 08:38 62 145/78 02/11/20 08:00 97.9 62 18 145/78 (100) 99 02/11/20 06:23 98.1 02/11/20 04:00 98.1 68 18 127/58 (81) 99 02/11/20 00:00 97.9 68 18 145/78 (100) 98 02/10/20 21:44 Room Air 02/10/20 20:00 98.4 64 18 159/81 (107) 95 02/10/20 17:20 69 137/83 02/10/20 16:00 98.5 69 17 137/83 (101) 99 02/10/20 12:00 97.5 63 16 168/77 (107) 100 02/10/20 09:00 Room Air 02/10/20 08:57 66 144/72 02/10/20 08:00 98.2 66 18 144/72 (96) 99 02/10/20 04:00 97.5 72 18 139/67 (91) 99 02/10/20 00:00 98.0 67 18 142/70 (94) 99 02/09/20 21:00 Room Air 02/09/20 20:00 98.1 65 18 159/71 (100) 100 02/09/20 17:30 62 148/84 02/09/20 16:00 97.7 62 19 148/84 (105) 100 02/09/20 14:24 63 131/79 (96) Intake and Output 02/10/20 02/11/20 19:00 07:00 Intake Total 900 ml Balance 900 ml Other 900 ml # Voids 2 Labs Test 02/08/20 18:00 02/08/20 18:59 02/09/20 05:25 02/09/20 17:10 White Blood Count 7.1 K/UL (4.8-10.8) 8.1 K/UL (4.8-10.8) Red Blood Count 3.91 M/UL (4.70-6.10) 3.67 M/UL (4.70-6.10) Hemoglobin 12.3 G/DL (14.2-18.0) 11.6 G/DL (14.2-18.0) Hematocrit 37.4 % (42.0-52.0) 35.6 % (42.0-52.0) Mean Corpuscular Volume 96 FL (80-99) 97 FL (80-99) Mean Corpuscular Hemoglobin 31.4 PG (27.0-31.0) 31.6 PG (27.0-31.0) Mean Corpuscular Hemoglobin Concent 32.8 G/DL (32.0-36.0) 32.6 G/DL (32.0-36.0) Red Cell Distribution Width 13.1 % (11.6-14.8) 12.8 % (11.6-14.8) Platelet Count 394 K/UL (150-450) 323 K/UL (150-450) Mean Platelet Volume 7.9 FL (6.5-10.1) 7.9 FL (6.5-10.1) Neutrophils (%) (Auto) 53.8 % (45.0-75.0) 46.2 % (45.0-75.0) Lymphocytes (%) (Auto) 34.5 % (20.0-45.0) 40.4 % (20.0-45.0) Monocytes (%) (Auto) 6.1 % (1.0-10.0) 7.4 % (1.0-10.0) Eosinophils (%) (Auto) 3.7 % (0.0-3.0) 4.2 % (0.0-3.0) Basophils (%) (Auto) 1.9 % (0.0-2.0) 1.8 % (0.0-2.0) Sodium Level 138 MMOL/L (136-145) 140 MMOL/L (136-145) Potassium Level 4.5 MMOL/L (3.5-5.1) 3.8 MMOL/L (3.5-5.1) Chloride Level 102 MMOL/L (98-107) 104 MMOL/L (98-107) Carbon Dioxide Level 25 MMOL/L (21-32) 27 MMOL/L (21-32) Anion Gap 11 mmol/L (5-15) 9 mmol/L (5-15) Blood Urea Nitrogen 12 mg/dL (7-18) 12 mg/dL (7-18) Creatinine 1.2 MG/DL (0.55-1.30) 1.1 MG/DL (0.55-1.30) Estimat Glomerular Filtration Rate > 60 mL/min (>60) > 60 mL/min (>60) Glucose Level 355 MG/DL (74-106) 82 MG/DL (74-106) Lactic Acid Level 2.20 mmol/L (0.4-2.0) 1.50 mmol/L (0.66-2.22) Calcium Level 9.1 MG/DL (8.5-10.1) 8.8 MG/DL (8.5-10.1) Total Bilirubin 0.2 MG/DL (0.2-1.0) 0.3 MG/DL (0.2-1.0) Aspartate Amino Transf (AST/SGOT) 16 U/L (15-37) 15 U/L (15-37) Alanine Aminotransferase (ALT/SGPT) 21 U/L (12-78) 13 U/L (12-78) Alkaline Phosphatase 97 U/L (46-116) 90 U/L (46-116) Total Protein 7.7 G/DL (6.4-8.2) 6.9 G/DL (6.4-8.2) Albumin 3.6 G/DL (3.4-5.0) 3.3 G/DL (3.4-5.0) Globulin 4.1 g/dL 3.6 g/dL Albumin/Globulin Ratio 0.9 (1.0-2.7) 0.9 (1.0-2.7) POC Whole Blood Glucose 252 MG/DL (74-106) Test 02/10/20 12:35 02/11/20 05:00 Vancomycin Level Trough 16.4 ug/mL (5.0-12.0) White Blood Count 5.5 K/UL (4.8-10.8) Red Blood Count 3.48 M/UL (4.70-6.10) Hemoglobin 10.9 G/DL (14.2-18.0) Hematocrit 33.7 % (42.0-52.0) Mean Corpuscular Volume 97 FL (80-99) Mean Corpuscular Hemoglobin 31.4 PG (27.0-31.0) Mean Corpuscular Hemoglobin Concent 32.4 G/DL (32.0-36.0) Red Cell Distribution Width 12.7 % (11.6-14.8) Platelet Count 306 K/UL (150-450) Mean Platelet Volume 7.9 FL (6.5-10.1) Neutrophils (%) (Auto) 38.0 % (45.0-75.0) Lymphocytes (%) (Auto) 49.2 % (20.0-45.0) Monocytes (%) (Auto) 6.9 % (1.0-10.0) Eosinophils (%) (Auto) 4.6 % (0.0-3.0) Basophils (%) (Auto) 1.4 % (0.0-2.0) Sodium Level 137 MMOL/L (136-145) Potassium Level 4.4 MMOL/L (3.5-5.1) Chloride Level 101 MMOL/L (98-107) Carbon Dioxide Level 29 MMOL/L (21-32) Anion Gap 7 mmol/L (5-15) Blood Urea Nitrogen 15 mg/dL (7-18) Creatinine 1.3 MG/DL (0.55-1.30) Estimat Glomerular Filtration Rate > 60 mL/min (>60) Glucose Level 318 MG/DL (74-106) Calcium Level 9.1 MG/DL (8.5-10.1) Height (Feet): 6 Height (Inches): 4.00 Weight (Pounds): 210 Objective Physical Exam Sp02 EP Interpretation: reviewed, normal General Appearance: normal inspection Respiratory: normal inspection, lungs clear Cardiovascular: regular rate, rhythm, edema - left lower extremity Gastrointestinal: normal inspection, nml Bs Genitourinary: no CVA tenderness Musculoskeletal: normal inspection, back normal, left foot, swelling Skin: normal inspection, normal color Gonzalo Hutson MD Feb 11, 2020 13:04
--- NOTE | 2020-02-11 14:32 | Infectious Diseases Prog Note ---
Assessment/Plan Assessment/Plan IMPRESSION: Left foot cellulitis with diabetic foot ulcer. Diagnosed with osteomyelitis in another facility. Uncontrolled diabetes mellitus, Hypertension, Chronic DVT of left lower extremity. Nicotine dependence RECOMMENDATION: Continue antibiotic treatment with vancomycin. Will try to obtain more information from [facility]. Subjective ROS Limited/Unobtainable: Yes Allergies: Coded Allergies: No Known Allergies (Unverified , 08/30/18) Objective Last 24 Hour Vital Signs Date Time Temp Pulse Resp B/P (MAP) Pulse Ox O2 Delivery O2 Flow Rate FiO2 02/11/20 11:57 97.9 58 18 140/70 (93) 99 02/11/20 09:00 Room Air 02/11/20 08:38 62 145/78 02/11/20 08:00 97.9 62 18 145/78 (100) 99 02/11/20 06:23 98.1 02/11/20 04:00 98.1 68 18 127/58 (81) 99 02/11/20 00:00 97.9 68 18 145/78 (100) 98 02/10/20 21:44 Room Air 02/10/20 20:00 98.4 64 18 159/81 (107) 95 02/10/20 17:20 69 137/83 02/10/20 16:00 98.5 69 17 137/83 (101) 99 Height (Feet): 6 Height (Inches): 4.00 Weight (Pounds): 210 General Appearance: no acute distress HEENT: mucous membranes moist Respiratory/Chest: lungs clear Cardiovascular: normal rate Abdomen: soft, non tender Extremities: other - edema of left leg Skin: ulcers, other - left foot Neurologic/Psychiatric: other - sleeping Microbiology Date/Time Source Procedure Growth Status 02/08/20 18:00 Blood Blood Culture - Preliminary NO GROWTH AFTER 48 HOURS Resulted 02/08/20 17:45 Blood Blood Culture - Preliminary NO GROWTH AFTER 48 HOURS Resulted 02/08/20 18:00 Nasal Nares MRSA Culture - Final NO METHICILLIN RESISTANT STAPH AUREUS... Complete 02/08/20 18:00 Rectum - Final NO CARBAPENEM-RESISTANT ENTEROBACTERI... Complete 02/08/20 18:00 Rectum VRE Culture - Final NO VANCOMYCIN RESISTANT ENTEROCOCCUS ... Complete Laboratory Tests Test 02/11/20 05:00 White Blood Count 5.5 K/UL (4.8-10.8) Red Blood Count 3.48 M/UL (4.70-6.10) L Hemoglobin 10.9 G/DL (14.2-18.0) L Hematocrit 33.7 % (42.0-52.0) L Mean Corpuscular Volume 97 FL (80-99) Mean Corpuscular Hemoglobin 31.4 PG (27.0-31.0) H Mean Corpuscular Hemoglobin Concent 32.4 G/DL (32.0-36.0) Red Cell Distribution Width 12.7 % (11.6-14.8) Platelet Count 306 K/UL (150-450) Mean Platelet Volume 7.9 FL (6.5-10.1) Neutrophils (%) (Auto) 38.0 % (45.0-75.0) L Lymphocytes (%) (Auto) 49.2 % (20.0-45.0) H Monocytes (%) (Auto) 6.9 % (1.0-10.0) Eosinophils (%) (Auto) 4.6 % (0.0-3.0) H Basophils (%) (Auto) 1.4 % (0.0-2.0) Sodium Level 137 MMOL/L (136-145) Potassium Level 4.4 MMOL/L (3.5-5.1) Chloride Level 101 MMOL/L (98-107) Carbon Dioxide Level 29 MMOL/L (21-32) Anion Gap 7 mmol/L (5-15) Blood Urea Nitrogen 15 mg/dL (7-18) Creatinine 1.3 MG/DL (0.55-1.30) Estimat Glomerular Filtration Rate > 60 mL/min (>60) Glucose Level 318 MG/DL (74-106) H Calcium Level 9.1 MG/DL (8.5-10.1) Current Medications Medications (Trade) Dose Ordered Sig/Fiorella Route PRN Reason Start Time Stop Time Status Last Admin Dose Admin Acetaminophen (Tylenol) 650 mg Q4H PRN ORAL Mild Pain (Pain Scale 1-3) 02/08/20 21:30 03/09/20 21:29 Acetaminophen/ Hydrocodone Bitart ([place] 5/325) 1 tab Q4H PRN ORAL severe pain 02/09/20 11:00 02/16/20 10:59 02/11/20 05:51 Chlorhexidine Gluconate (Mary-Hex 2%) 1 applic DAILY@2000 TOPIC 02/09/20 20:00 05/09/20 19:59 02/10/20 20:00 Dextrose (Dextrose 50%) 25 ml Q30M PRN IV Hypoglycemia 02/09/20 10:45 05/09/20 10:44 Dextrose (Dextrose 50%) 50 ml Q30M PRN IV Hypoglycemia 02/09/20 10:45 05/09/20 10:44 Enoxaparin Sodium (Lovenox) 40 mg DAILY SUBQ 02/09/20 09:00 05/09/20 08:59 02/11/20 08:41 Gabapentin (Neurontin) 300 mg THREE TIMES A DAY ORAL 02/09/20 11:00 03/10/20 10:59 02/11/20 13:20 Insulin Aspart (NovoLOG) BEFORE MEALS AND HS SUBQ 02/09/20 11:30 05/09/20 11:29 02/11/20 12:10 Metoprolol Succinate (Toprol XL) 50 mg BID ORAL 02/08/20 21:30 05/08/20 21:29 02/11/20 08:38 [facility] DA[facility] PRN MISC Per rx protocol 02/09/20 12:30 03/10/20 12:29 Vancomycin HCl 1 gm/Dextrose 275 ml @ 183.708 mls/hr Q8H IVPB 02/09/20 14:00 02/14/20 13:59 02/11/20 13:20 Claude Hernandez MD Feb 11, 2020 14:32
[2020-02-11 16:00] VITALS: BP 142/77
[2020-02-11 20:00] VITALS: BP 162/87
[2020-02-11] MEDS: Dyna-Hex 2% Top Sol 2oz TOPIC SCH (20:00)
[2020-02-12] VITALS: BP 149/77
[2020-02-12 04:31] VITALS: BP 152/95
[2020-02-12] MEDS: Vancomycin 1gm/D5W 275ml IVPB SCH ×4 (05:54→14:00)
[2020-02-12] MEDS: NovoLOG Insulin Flexpen SUBQ SCH ×2 (05:58→11:52)
[2020-02-12 07:16] LABS: BASOPHILS % (AUTO) 1.3 % (0.0-2.0); EOSINOPHILS % (AUTO) 4.9 % (0.0-3.0); HEMATOCRIT 33.7 % (42.0-52.0); LYMPHOCYTES % (AUTO) 39.8 % (20.0-45.0); MEAN CORPUSCULAR VOLUME 97 FL (80-99); MONOCYTES % (AUTO) 7.3 % (1.0-10.0); NEUTROPHILS % (AUTO) 46.8 % (45.0-75.0); PLATELET COUNT 298 K/UL (150-450); RED BLOOD COUNT 3.47 M/UL (4.70-6.10); RED CELL DISTRIBUTION WIDTH 12.9 % (11.6-14.8); WHITE BLOOD COUNT 6.2 K/UL (4.8-10.8)
[2020-02-12 08:00] VITALS: BP 146/85
[2020-02-12 08:06] LABS: ANION GAP 6 mmol/L (5-15); BLOOD UREA NITROGEN 17 mg/dL (7-18); CALCIUM 9.3 MG/DL (8.5-10.1); CARBON DIOXIDE 28 MMOL/L (21-32); CHLORIDE 100 MMOL/L (98-107); CREATININE 1.5 MG/DL (0.55-1.30); POTASSIUM 4.1 MMOL/L (3.5-5.1); SODIUM 134 MMOL/L (136-145)
[2020-02-12] MEDS: Metoprolol Succinate XL 50mg tab ORAL SCH (08:45)
[2020-02-12] MEDS: Enoxaparin 40mg Inj SUBQ SCH (08:46)
--- NOTE | 2020-02-12 11:42 | Infectious Diseases Prog Note ---
Assessment/Plan Assessment/Plan IMPRESSION: Left foot cellulitis with diabetic foot ulcer. Diagnosed with osteomyelitis in another facility. Uncontrolled diabetes mellitus, Hypertension, Chronic DVT of left lower extremity. Nicotine dependence RECOMMENDATION: Continue antibiotic treatment with vancomycin. 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 Can be discharged with IV antibiotics & home hubert Subjective ROS Limited/Unobtainable: No Constitutional: Reports: no symptoms Respiratory: Reports: no symptoms Cardiovascular: Reports: no symptoms Gastrointestinal/Abdominal: Reports: no symptoms Allergies: Coded Allergies: No Known Allergies (Unverified , 08/30/18) Objective Last 24 Hour Vital Signs Date Time Temp Pulse Resp B/P (MAP) Pulse Ox O2 Delivery O2 Flow Rate FiO2 02/12/20 09:00 Room Air 02/12/20 08:45 83 146/85 02/12/20 08:00 98.0 83 20 146/85 (105) 97 02/12/20 04:31 98.1 81 20 152/95 (114) 95 02/12/20 00:00 98.1 63 18 149/77 (101) 99 02/11/20 21:00 Room Air 02/11/20 20:00 97.7 63 18 162/87 (112) 100 02/11/20 17:19 62 142/77 02/11/20 16:00 98.0 62 18 142/77 (98) 100 02/11/20 11:57 97.9 58 18 140/70 (93) 99 Height (Feet): 6 Height (Inches): 4.00 Weight (Pounds): 210 General Appearance: no acute distress HEENT: mucous membranes moist Respiratory/Chest: lungs clear Cardiovascular: normal rate Abdomen: soft, non tender Extremities: other - edema of left leg Skin: ulcers, other - left plantar ulcer Neurologic/Psychiatric: alert, oriented x 3, responsive Laboratory Tests Test 02/12/20 06:00 White Blood Count 6.2 K/UL (4.8-10.8) Red Blood Count 3.47 M/UL (4.70-6.10) L Hemoglobin 11.0 G/DL (14.2-18.0) L Hematocrit 33.7 % (42.0-52.0) L Mean Corpuscular Volume 97 FL (80-99) Mean Corpuscular Hemoglobin 31.7 PG (27.0-31.0) H Mean Corpuscular Hemoglobin Concent 32.6 G/DL (32.0-36.0) Red Cell Distribution Width 12.9 % (11.6-14.8) Platelet Count 298 K/UL (150-450) Mean Platelet Volume 8.2 FL (6.5-10.1) Neutrophils (%) (Auto) 46.8 % (45.0-75.0) Lymphocytes (%) (Auto) 39.8 % (20.0-45.0) Monocytes (%) (Auto) 7.3 % (1.0-10.0) Eosinophils (%) (Auto) 4.9 % (0.0-3.0) H Basophils (%) (Auto) 1.3 % (0.0-2.0) Sodium Level 134 MMOL/L (136-145) L Potassium Level 4.1 MMOL/L (3.5-5.1) Chloride Level 100 MMOL/L (98-107) Carbon Dioxide Level 28 MMOL/L (21-32) Anion Gap 6 mmol/L (5-15) Blood Urea Nitrogen 17 mg/dL (7-18) Creatinine 1.5 MG/DL (0.55-1.30) H Estimat Glomerular Filtration Rate 58.7 mL/min (>60) Glucose Level 391 MG/DL (74-106) H Calcium Level 9.3 MG/DL (8.5-10.1) Current Medications Medications (Trade) Dose Ordered Sig/Fiorella Route PRN Reason Start Time Stop Time Status Last Admin Dose Admin Acetaminophen (Tylenol) 650 mg Q4H PRN ORAL Mild Pain (Pain Scale 1-3) 02/08/20 21:30 03/09/20 21:29 Acetaminophen/ Hydrocodone Bitart ([place] 5/325) 1 tab Q4H PRN ORAL severe pain 02/09/20 11:00 02/16/20 10:59 02/11/20 22:08 Chlorhexidine Gluconate (Mary-Hex 2%) 1 applic DAILY@2000 TOPIC 02/09/20 20:00 05/09/20 19:59 02/10/20 20:00 Dextrose (Dextrose 50%) 25 ml Q30M PRN IV Hypoglycemia 02/09/20 10:45 05/09/20 10:44 Dextrose (Dextrose 50%) 50 ml Q30M PRN IV Hypoglycemia 02/09/20 10:45 05/09/20 10:44 Enoxaparin Sodium (Lovenox) 40 mg DAILY SUBQ 02/09/20 09:00 05/09/20 08:59 02/12/20 08:46 Gabapentin (Neurontin) 300 mg THREE TIMES A DAY ORAL 02/09/20 11:00 03/10/20 10:59 02/12/20 08:45 Insulin Aspart (NovoLOG) BEFORE MEALS AND HS SUBQ 02/09/20 11:30 05/09/20 11:29 02/12/20 05:58 Metoprolol Succinate (Toprol XL) 50 mg BID ORAL 02/08/20 21:30 05/08/20 21:29 02/12/20 08:45 Vancomycin HCl ([facility] pharmacy to dose) 1 ea DAILY PRN MISC Per rx protocol 02/09/20 12:30 03/10/20 12:29 Vancomycin HCl 1 gm/Dextrose 275 ml @ 183.708 mls/hr Q8H IVPB 02/09/20 14:00 02/14/20 13:59 02/12/20 05:54 Claude Hernandez MD Feb 12, 2020 11:42
--- NOTE | 2020-02-12 11:54 | Hematology/Onc Progress Note ---
Assessment/Plan Assessment/Plan Assessment/Recs: # DVT of left lower extremity that is currently chronic was intiially diagnosed in 2018, i did see him at the time, did complete a 3 month eliquis course --> Arterial duplex study showed vascular insufficiency without evidence of peripheral artery disease without evidence of severe stenosis. --> given one dose of lovenox --> continue on ppx lovenox, has completed 3 months of anticoag # Anemia of chronic disease --> workup has been reviewed --> hgb 12-->11 # Thrombocytosis is likely reactive process --> 450-650k range repeat tomorrow # Accelerated hypertension. The patient is on metoprolol 50 mg b.i.d. at home daily to his medical regimen and add p.r.n. clonidine. # Diabetes, on metformin and insulin. # Diabetic foot ulcer. Currently is better # Diabetes per Dr. Raymond. MAR RN and appreciate consultation Subjective HEENT: Denies: no symptoms, eye pain, blurred vision, tearing, double vision, ear pain, ear discharge, nose pain, nose congestion, throat pain, throat swelling, mouth pain, mouth swelling, other Cardiovascular: Denies: no symptoms, chest pain, edema, irregular heart rate, lightheadedness, palpitations, syncope, other Respiratory: Denies: no symptoms, cough, shortness of breath, SOB with excertion, SOB at rest, sputum, wheezing, other Gastrointestinal/Abdominal: Denies: no symptoms, abdomen distended, abdominal pain, black stools, tarry stools, blood in stool, constipated, diarrhea, difficulty swallowing, nausea, poor appetite, poor fluid intake, rectal bleeding , vomiting, other Genitourinary: Denies: no symptoms, burning, discharge, frequency, flank pain, hematuria, incontinence, pain, urgency, other Neurologic/Psychiatric: Denies: no symptoms, anxiety, depressed, emotional problems, headache, numbness, paresthesia, pre-existing deficit, seizure, tingling, tremors, weakness, other Endocrine: Denies: no symptoms, excessive sweating, flushing, intolerance to cold, intolerance to heat, increased hunger, increased thirst, increased urine, unexplained weight gain, unexplained weight loss, other Hematologic/Lymphatic: Denies: no symptoms, anemia, easy bleeding, easy bruising, adenopathy, other Allergies: Coded Allergies: No Known Allergies (Unverified , 08/30/18) Subjective 02/10 in bed, with picc, alert, no bleeding, meds reviewed 02/11 labs noted, bleeding, meds reviewed, mri foot done Objective Objective Current Medications Medications (Trade) Dose Ordered Sig/Fiorella Route PRN Reason Start Time Stop Time Status Last Admin Dose Admin Acetaminophen (Tylenol) 650 mg Q4H PRN ORAL Mild Pain (Pain Scale 1-3) 02/08/20 21:30 03/09/20 21:29 Acetaminophen/ Hydrocodone Bitart ([place] 5/325) 1 tab Q4H PRN ORAL severe pain 02/09/20 11:00 02/16/20 10:59 02/11/20 22:08 Chlorhexidine Gluconate (Mary-Hex 2%) 1 applic DAILY@1999 TOPIC 02/09/20 20:00 05/09/20 19:59 02/10/20 20:00 Dextrose (Dextrose 50%) 25 ml Q30M PRN IV Hypoglycemia 02/09/20 10:45 05/09/20 10:44 Dextrose (Dextrose 50%) 50 ml Q30M PRN IV Hypoglycemia 02/09/20 10:45 05/09/20 10:44 Enoxaparin Sodium (Lovenox) 40 mg DAILY SUBQ 02/09/20 09:00 05/09/20 08:59 02/12/20 08:46 Gabapentin (Neurontin) 300 mg THREE TIMES A DAY ORAL 02/09/20 11:00 03/10/20 10:59 02/12/20 08:45 Insulin Aspart (NovoLOG) BEFORE MEALS AND HS SUBQ 02/09/20 11:30 05/09/20 11:29 02/12/20 11:52 Metoprolol Succinate (Toprol XL) 50 mg BID ORAL 02/08/20 21:30 05/08/20 21:29 02/12/20 08:45 Vancomycin HCl ([facility] pharmacy to dose) 1 ea DAILY PRN MISC Per rx protocol 02/09/20 12:30 03/10/20 12:29 Vancomycin HCl 1 gm/Dextrose 275 ml @ 183.708 mls/hr Q8H IVPB 02/09/20 14:00 02/14/20 13:59 02/12/20 05:54 Last 24 Hour Vital Signs Date Time Temp Pulse Resp B/P (MAP) Pulse Ox O2 Delivery O2 Flow Rate FiO2 02/12/20 09:00 Room Air 02/12/20 08:45 83 146/85 02/12/20 08:00 98.0 83 20 146/85 (105) 97 02/12/20 04:31 98.1 81 20 152/95 (114) 95 02/12/20 00:00 98.1 63 18 149/77 (101) 99 02/11/20 21:00 Room Air 02/11/20 20:00 97.7 63 18 162/87 (112) 100 02/11/20 17:19 62 142/77 02/11/20 16:00 98.0 62 18 142/77 (98) 100 02/11/20 11:57 97.9 58 18 140/70 (93) 99 02/11/20 09:00 Room Air 02/11/20 08:38 62 145/78 02/11/20 08:00 97.9 62 18 145/78 (100) 99 02/11/20 06:23 98.1 02/11/20 04:00 98.1 68 18 127/58 (81) 99 02/11/20 00:00 97.9 68 18 145/78 (100) 98 02/10/20 21:44 Room Air 02/10/20 20:00 98.4 64 18 159/81 (107) 95 02/10/20 17:20 69 137/83 02/10/20 16:00 98.5 69 17 137/83 (101) 99 02/10/20 12:00 97.5 63 16 168/77 (107) 100 Intake and Output 02/11/20 02/12/20 19:00 07:00 Intake Total 1200 ml 818.708 ml Balance 1200 ml 818.708 ml IV Total 458.708 ml Other 1200 ml 360 ml # Voids 2 Labs Test 02/09/20 17:10 02/10/20 12:35 02/11/20 05:00 02/12/20 06:00 POC Whole Blood Glucose 252 MG/DL (74-106) Vancomycin Level Trough 16.4 ug/mL (5.0-12.0) White Blood Count 5.5 K/UL (4.8-10.8) 6.2 K/UL (4.8-10.8) Red Blood Count 3.48 M/UL (4.70-6.10) 3.47 M/UL (4.70-6.10) Hemoglobin 10.9 G/DL (14.2-18.0) 11.0 G/DL (14.2-18.0) Hematocrit 33.7 % (42.0-52.0) 33.7 % (42.0-52.0) Mean Corpuscular Volume 97 FL (80-99) 97 FL (80-99) Mean Corpuscular Hemoglobin 31.4 PG (27.0-31.0) 31.7 PG (27.0-31.0) Mean Corpuscular Hemoglobin Concent 32.4 G/DL (32.0-36.0) 32.6 G/DL (32.0-36.0) Red Cell Distribution Width 12.7 % (11.6-14.8) 12.9 % (11.6-14.8) Platelet Count 306 K/UL (150-450) 298 K/UL (150-450) Mean Platelet Volume 7.9 FL (6.5-10.1) 8.2 FL (6.5-10.1) Neutrophils (%) (Auto) 38.0 % (45.0-75.0) 46.8 % (45.0-75.0) Lymphocytes (%) (Auto) 49.2 % (20.0-45.0) 39.8 % (20.0-45.0) Monocytes (%) (Auto) 6.9 % (1.0-10.0) 7.3 % (1.0-10.0) Eosinophils (%) (Auto) 4.6 % (0.0-3.0) 4.9 % (0.0-3.0) Basophils (%) (Auto) 1.4 % (0.0-2.0) 1.3 % (0.0-2.0) Sodium Level 137 MMOL/L (136-145) 134 MMOL/L (136-145) Potassium Level 4.4 MMOL/L (3.5-5.1) 4.1 MMOL/L (3.5-5.1) Chloride Level 101 MMOL/L (98-107) 100 MMOL/L (98-107) Carbon Dioxide Level 29 MMOL/L (21-32) 28 MMOL/L (21-32) Anion Gap 7 mmol/L (5-15) 6 mmol/L (5-15) Blood Urea Nitrogen 15 mg/dL (7-18) 17 mg/dL (7-18) Creatinine 1.3 MG/DL (0.55-1.30) 1.5 MG/DL (0.55-1.30) Estimat Glomerular Filtration Rate > 60 mL/min (>60) 58.7 mL/min (>60) Glucose Level 318 MG/DL (74-106) 391 MG/DL (74-106) Calcium Level 9.1 MG/DL (8.5-10.1) 9.3 MG/DL (8.5-10.1) Height (Feet): 6 Height (Inches): 4.00 Weight (Pounds): 210 Objective Physical Exam Sp02 EP Interpretation: reviewed, normal General Appearance: normal inspection Respiratory: normal inspection, lungs clear Cardiovascular: regular rate, rhythm, edema - left lower extremity Gastrointestinal: normal inspection, nml Bs Genitourinary: no CVA tenderness Musculoskeletal: normal inspection, back normal, left foot, swelling Skin: normal inspection, normal color Gonzalo Hutson MD Feb 12, 2020 11:54
[2020-02-12 12:00] VITALS: BP 153/63
--- NOTE | 2020-02-12 12:01 | Diagnostic Imaging Report ---
Indication: Left ankle and leg pain, history of recent surgery for bone infection Technique: Sagittal, coronal, and axial T1 FSE and FSE STIR images of the ankle and hindfoot Comparison: None. No plain radiographs available Findings: There is fairly extensive edema of the subcutaneous fat. This is circumferential most notably lateral and medial. No definite discrete fluid collections are demonstrated. Abnormal bone marrow signal is seen in the fourth metacarpal, which is incompletely included. This is discussed in more detail tail in separate foot MRI report. A small band of high STIR signal is seen paralleling the lateral cortex of the tibia, without evidence of corresponding abnormality on the T1-weighted images. No other marrow abnormalities seen within the bones of the hindfoot or posterior midfoot Impression: Extensive edema of the subcutaneous fat. This could indicate cellulitis, given stated clinical history, or could be edema of hemodynamic origin. No discrete collection to suggest abscess Minimal subcortical increased STIR signal of the distal lateral tibia without evidence of T1 signal laterality. Most likely reactive. Early osteomyelitis changes not completely excludable, however.. Abnormal fourth metatarsal-please see separate MRI forefoot report No other findings to suggest acute osteomyelitis of the ankle
--- NOTE | 2020-02-12 12:26 | Diagnostic Imaging Report ---
Indication: Left foot pain, history of recent surgery for bone infection, pain in the left ankle extending into the leg. Left foot wound Technique: Axial, sagittal, and coronal T1 FSE and FSE STIR images of the forefoot Comparison: 01/17/2020 Findings: A marker rosenberg a wound on the plantar surface below the fourth metatarsophalangeal joint. There is considerable edema in the superficial fat adjacent to this. There is also considerable edema deeper to it. There is absence of the fourth metatarsal head. The margin of the metatarsal neck appears discrete with a slight degree of cortication indicating that this is probably due to prior amputation rather than destructive bone loss. In the space previously occupied by the metatarsal head, there is a 1.8 x 1.3 x 0.9 cm somewhat discrete fluid collection. Low T1 and high STIR signal is seen throughout the metatarsal shaft and extending slightly into the base. There is only mildly increased STIR signal within the fourth proximal phalanx and no T1 signal abnormality. The middle and distal phalanges are unremarkable. Increased STIR signal is seen within the second metatarsal shaft, and there is subtle decreased T1 signal as well. There is very subtle increased STIR signal within the third metatarsal shaft and questionable subtle T1 signal abnormality. No marrow abnormality is seen in the visualized portions of the midfoot. No marrow abnormality is seen involving the first or fifth digits. In addition to the soft tissue abnormality at the anterolateral plantar surface described above, there is extensive edema of the subcutaneous fat. This is near circumferential, but predominantly dorsal and medial. There is also considerable edema of the musculotendinous compartment. There is very striking edema of the dorsum of the fourth toe, as well as fluid seen surrounding the fourth proximal phalangeal shaft. There is edema of the dorsal surface of the third toe as well anterolisthesis extent the second toe. The third and fourth toe dorsal edema may represent discrete collections but most likely just represents fluid infiltrating the subcutaneous fat. Comparison to the previous exam is problematic, given the presence of extensive metallic susceptibility artifact seen on last study. That artifact is no longer evident; presumably the foreign body causing it has been removed in the interim. Although the distal fourth metatarsal is not well visualized previously, it appears likely that the amputation has occurred in the interim. The marrow signal abnormality of the second and third metatarsal shafts appears to been present previously. Impression: Evidence of soft tissue inflammation and ulcer involving the plantar surface of the forefoot near the fourth metatarsophalangeal joint. Absence of the fourth metatarsal head. Appearance is suggestive of postsurgical change, presumably recent given stated clinical history and absence of similar findings on prior 01/17/2020 exam Considerable marrow edema of the fourth metatarsal shaft. This may be reactive related to the recent surgery and is not evident on the prior study. However, acute osteomyelitis as etiology of this finding is also possible. Evidence of a discrete 1.8 x 1.3 x 0.9 cm fluid collection in the space previously occupied by the fourth metatarsal head, may well represent a small postoperative seroma but could represent small abscess as well Abnormal STIR signal within the second metatarsal shaft with subtle decreased T1 signal. This could be reactive but raises concern for acute osteomyelitis. More subtle similar signal abnormality is also seen in the third metatarsal shaft. Extensive soft tissue edema as detailed above. Given stated clinical history, likely on the basis of soft tissue cellulitis but could also represent edema related to hemodynamic derangements. Correlate with clinical findings Dorsal soft tissue edema of the fourth digit and to a lesser extent the third and second digits. Discrete fluid collections not completely excludable although deemed less likely
--- NOTE | 2020-02-12 12:45 | Surgery Progress Note ---
Surgery Progress Note Subjective Additional Comments doing well had MRI today no n/v/f/c comfortable Objective Last 24 Hour Vital Signs Date Time Temp Pulse Resp B/P (MAP) Pulse Ox O2 Delivery O2 Flow Rate FiO2 02/12/20 09:00 Room Air 02/12/20 08:45 83 146/85 02/12/20 08:00 98.0 83 20 146/85 (105) 97 02/12/20 04:31 98.1 81 20 152/95 (114) 95 02/12/20 00:00 98.1 63 18 149/77 (101) 99 02/11/20 21:00 Room Air 02/11/20 20:00 97.7 63 18 162/87 (112) 100 02/11/20 17:19 62 142/77 02/11/20 16:00 98.0 62 18 142/77 (98) 100 I&O Intake and Output 02/11/20 02/12/20 19:00 07:00 Intake Total 1200 ml 818.708 ml Balance 1200 ml 818.708 ml IV Total 458.708 ml Other 1200 ml 360 ml # Voids 2 Dressing: saturated Wound: clean Cardiovascular: RSR Respiratory: clear Abdomen: soft, non-tender, present bowel sounds Extremities: edema, tenderness, no cyanosis, pulses, other Laboratory Tests Test 02/12/20 06:00 White Blood Count 6.2 K/UL (4.8-10.8) Red Blood Count 3.47 M/UL (4.70-6.10) L Hemoglobin 11.0 G/DL (14.2-18.0) L Hematocrit 33.7 % (42.0-52.0) L Mean Corpuscular Volume 97 FL (80-99) Mean Corpuscular Hemoglobin 31.7 PG (27.0-31.0) H Mean Corpuscular Hemoglobin Concent 32.6 G/DL (32.0-36.0) Red Cell Distribution Width 12.9 % (11.6-14.8) Platelet Count 298 K/UL (150-450) Mean Platelet Volume 8.2 FL (6.5-10.1) Neutrophils (%) (Auto) 46.8 % (45.0-75.0) Lymphocytes (%) (Auto) 39.8 % (20.0-45.0) Monocytes (%) (Auto) 7.3 % (1.0-10.0) Eosinophils (%) (Auto) 4.9 % (0.0-3.0) H Basophils (%) (Auto) 1.3 % (0.0-2.0) Sodium Level 134 MMOL/L (136-145) L Potassium Level 4.1 MMOL/L (3.5-5.1) Chloride Level 100 MMOL/L (98-107) Carbon Dioxide Level 28 MMOL/L (21-32) Anion Gap 6 mmol/L (5-15) Blood Urea Nitrogen 17 mg/dL (7-18) Creatinine 1.5 MG/DL (0.55-1.30) H Estimat Glomerular Filtration Rate 58.7 mL/min (>60) Glucose Level 391 MG/DL (74-106) H Calcium Level 9.3 MG/DL (8.5-10.1) Plan Problems: (1) Diabetic foot ulcer (2) Cellulitis of lower extremity Assessment & Plan: Pt presented on admission with edema LLE.Non-Pitting edema with increased warmth noted. Full Thickness Ulcer Plantar L foot (L)1.3cm x (W)1.5cm x (D)0.4cm. Wound has punched out appearance. Biofilm at base of wound. Callused borders. Small amt serosanguineous exudate.No odor noted. A dark area which tracks from base of wound to base of L 4th and 5th metatarsals. Per pt, he has wound for approx 2 months. Pt also stated wound drains heavily during ambulation. MRI ordered. Antibiotics per infectious disease. Right arm PIC in place. Tx.Plan: Cleanse with Saline. Apply Silvasorb Gel.Apply Cavilon Skin Barrier Periwound. Cover with Optifoam drsg Daily and PRN. cont abx A marker rosenberg a wound on the plantar surface below the fourth metatarsophalangeal joint. There is considerable edema in the superficial fat adjacent to this. There is also considerable edema deeper to it. There is absence of the fourth metatarsal head. The margin of the metatarsal neck appears discrete with a slight degree of cortication indicating that this is probably due to prior amputation rather than destructive bone loss. In the space previously occupied by the metatarsal head, there is a 1.8 x 1.3 x 0.9 cm somewhat discrete fluid collection. Low T1 and high STIR signal is seen throughout the metatarsal shaft and extending slightly into the base. There is only mildly increased STIR signal within the fourth proximal phalanx and no T1 signal abnormality. The middle and distal phalanges are unremarkable. Increased STIR signal is seen within the second metatarsal shaft, and there is subtle decreased T1 signal as well. There is very subtle increased STIR signal within the third metatarsal shaft and questionable subtle T1 signal abnormality. No marrow abnormality is seen in the visualized portions of the midfoot. No marrow abnormality is seen involving the first or fifth digits. In addition to the soft tissue abnormality at the anterolateral plantar surface described above, there is extensive edema of the subcutaneous fat. This is near circumferential, but predominantly dorsal and medial. There is also considerable edema of the musculotendinous compartment. There is very striking edema of the dorsum of the fourth toe, as well as fluid seen surrounding the fourth proximal phalangeal shaft. There is edema of the dorsal surface of the third toe as well anterolisthesis extent the second toe. The third and fourth toe dorsal edema may represent discrete collections but most likely just represents fluid infiltrating the subcutaneous fat. Comparison to the previous exam is problematic, given the presence of extensive metallic susceptibility artifact seen on last study. That artifact is no longer evident; presumably the foreign body causing it has been removed in the interim. Although the distal fourth metatarsal is not well visualized previously, it appears likely that the amputation has occurred in the interim. The marrow signal abnormality of the second and third metatarsal shafts appears to been present previously. Impression: Evidence of soft tissue inflammation and ulcer involving the plantar surface of the forefoot near the fourth metatarsophalangeal joint. Absence of the fourth metatarsal head. Appearance is suggestive of postsurgical change, presumably recent given stated clinical history and absence of similar findings on prior 01/17/2020 exam Considerable marrow edema of the fourth metatarsal shaft. This may be reactive related to the recent surgery and is not evident on the prior study. However, acute osteomyelitis as etiology of this finding is also possible. Evidence of a discrete 1.8 x 1.3 x 0.9 cm fluid collection in the space previously occupied by the fourth metatarsal head, may well represent a small postoperative seroma but could represent small abscess as well Abnormal STIR signal within the second metatarsal shaft with subtle decreased T1 signal. This could be reactive but raises concern for acute osteomyelitis. More subtle similar signal abnormality is also seen in the third metatarsal shaft. Extensive soft tissue edema as detailed above. Given stated clinical history, likely on the basis of soft tissue cellulitis but could also represent edema related to hemodynamic derangements. Correlate with clinical findings Dorsal soft tissue edema of the fourth digit and to a lesser extent the third and second digits. Discrete fluid collections not completely excludable although deemed less likely (3) Diabetes (4) Rash (5) Hyperglycemia (6) Rash and other nonspecific skin eruption (7) DVT (deep venous thrombosis) (8) Hypertension (9) Medication refill (10) Noncompliance with medication regimen (11) Diabetes mellitus out of control (12) Cellulitis of left foot Joe Shannon Feb 12, 2020 12:45
[2020-02-12] MEDS ORDERED: CEFTRIAXONE2 G2 IV (13:18)
[2020-02-12] MEDS ORDERED: NovoLOG Insulin Flexpen SUBQ SCH (16:50)
--- NOTE | 2020-02-12 18:30 | Consultation ---
DATE OF CONSULTATION: 02/12/2020 ENDOCRINOLOGY CONSULTATION CONSULTING PHYSICIAN: Oli Raymond MD. REFERRING PHYSICIAN: Mayra Vanegas MD. REASON FOR CONSULTATION: Diabetes management. HISTORY OF PRESENT ILLNESS: Patient is a 54-year-old male with past medical history of diabetes who presented to the hospital with left foot and ankle pain. Patient has history of cellulitis and foot infection, was not able to finish the full antibiotic course, admitted to the floor for observation and treatment. I was called to manage diabetes. Glucose is running high in the 200 to 300 milligram/deciliter range as an outpatient. He is usually on Admelog and Basaglar. PAST MEDICAL HISTORY: 1. Hypertension. 2. Diabetes. 3. Noncompliance. PAST SURGICAL HISTORY: None. FAMILY HISTORY: Noncontributory. REVIEW OF SYSTEMS: As per HPI. MEDICATIONS: Reviewed and reconciled. LABORATORY VALUES: WBC 6, hemoglobin 11, hematocrit 33, platelets of 298. Sodium 134, potassium 4.1, chloride 100, bicarb 28, BUN 17, creatinine 1.5, glucose of 391. PHYSICAL EXAMINATION: VITAL SIGNS: Blood pressure 153/63, heart rate 51, temperature 97.9. HEENT: Pupils are equal and reactive to light. Sclerae anicteric. NECK: No JVD. No thyromegaly. LUNGS: Clear. HEART: Regular rate and rhythm. ABDOMEN: Positive bowel sounds. EXTREMITIES: Lower extremity cellulitic change and edema noted. DIAGNOSES: 1. Cellulitis. 2. Diabetes out of control. PLAN: 1. Start Levemir 30 units daily. 2. Start NovoLog 10 units before each meal. 3. NovoLog sliding scale before meals and at bedtime. 4. Check A1c. 5. Hypoglycemia protocol is in order. 6. I called the patient's pharmacy, the [facility] at phone number #[phone] and ordered equivalent dose of Levemir and NovoLog in Admelog and Basaglar form, which is covered by his insurance, so he can have insulin supplies after discharge. Insulin syringes and needles were ordered as well. Thank you, Dr. Vanegas, for the courtesy of this consultation. Oli Raymond M.D. DR: SHASHANK JOB#: [id number] CC: WEN
[2020-02-12] MEDS ORDERED: Levemir Flexpen SUBQ SCH (21:00)
--- NOTE | 2020-02-13 10:53 | Discharge Summary ---
Discharge Summary Discharge Summary _ DATE OF ADMISSION: 02/08/2020 DATE OF DISCHARGE: 02/12/2020 DISCHARGED BY: Dr Vanegas REASON FOR ADMISSION: 54 years old male with past medical history of poorly controlled diabetes, hypertension, presented to emergency department complaining of open wound to the left foot and ankle with severe 7 out of 10 pain and swelling. Patient was unable to finish course of IV antibiotics via PICC line . Patient was not aware of what type of antibiotic he was receiving. He denied fever and chills. He was hospitalized last month for this infection. he denied fall or trauma contributing to this open wound. Patient reported history of diabetic neuropathy. Patient was tested for COVID-19 negative at [facility] during hospitalization at the end of December. Upon evaluation vital signs revealed elevated blood pressure 179/83. No fevers. Laboratory work-up revealed no leukocytosis ,hemoglobin 12.3, hematocrit 37.4 , platelet count 394. BUN 12, creatinine 1.2. Glucose 355. Stable LFT Lactic acid 2.2, repeated 1.5. Venous duplex bilateral lower extremity revealed chronic left lower extremity DVT , no definite acute DVT was demonstrated. In emergency department patient received 1 L of fluid ,pancultured, started on empiric antibiotic and admitted for further management. CONSULTANTS: ID specialist Dr. Claude Burger [address] Raymond utilization management manager Dr. Anguiano finish rolls operator/oncologist Dr. Hutson surgery Dr. Shannon pain specialist Dr. Zamarripa [facility] COURSE: Patient admitted to medical surgical floor. Patient started on empiric antibiotic as per ID specialist recommendation. Blood cultures were negative. Patient was hospitalized at [facility] between 01/25 and 02/01 with suspected osteomyelitis of fourth metatarsal head. Patient undergone on 01/29 bone debridement and removal of foreign body. Pathology report revealed no evidence of osteomyelitis. At that time patient was discharged on IV antibiotic , but did not complete the course. Pain management was addressed as per pain specialist recommendation. Blood sugar was managed as per 911 dispatcher recommendation Patient was on long-acting Levemir, short acting NovoLog before meals and sliding scale of insulin was on board as needed. Hypoglycemia protocol was in order. Photonics Engineering Technician seen and evaluated patient. Diabetic foot ulcer left foot appeared to be stable. Wound care provided as per utilization management manager recommendation. No surgical intervention was indicated. MRI of the left foot revealed evidence of soft tissue inflammation and ulcer , involving the plantar surface of the forefoot near the fourth metatarsophalangeal joint. Abscess on the fourth metatarsal head suggestive of postsurgical changes. Considerable marrow edema of the fourth metatarsal shaft may be reactive due to recent surgery ,however acute osteomyelitis as etiology was also possible. Evidence of discrete 1.8 x 1.3 x 0.9 cm fluid collection in the space previously occupied by the fourth metatarsal head, may well represent a small postoperative seroma . but small abscess was not excluded. MRI of the left ankle demonstrated extensive edema of the subcutaneous fat , possibly indicative of cellulitis given clinical history. Surgeon seen and evaluated the patient . Discrete fluid collection or abscess deemed unlikely. No need for any interventions at this time Supportive care provided . DVT prophylaxis provided. Blood pressure was managed with beta-tono, and improved. Patient clinically stabilized and was ready for discharge home with IV antibiotics to complete the course as per ID specialist recommendations. Home health services have been arranged. . FINAL DIAGNOSES: Left foot cellulitis with diabetic foot ulcer Osteomyelitis, diagnosed prior at another facility Diabetes mellitus [id number] Hypertension DVT left lower extremity chronic Nicotine dependency Neuropathic pain DISCHARGE MEDICATIONS: See Medication Reconciliation list. DISCHARGE INSTRUCTIONS: Patient was discharged home with home health services for IV antibiotic. Follow-up with a primary care provider in 1 week. I have been assigned to dictate discharge summary for this account. I was not involved in the patient's management. Ana Lilia Betancourt NP Feb 13, 2020 10:53
== END 2020-02-12 16:20 | disposition home or self-care (01) | DRG 344 ==
LOC: EMR 17:15 → EDBEDREQ 18:00 → 4E 18:12 → EDBEDREQ 18:47
DX: E11.621 Type 2 diabetes mellitus with foot ulcer (principal); L03.116 Cellulitis of left lower limb; M86.8X7 Other osteomyelitis, ankle and foot; E11.65 Type 2 diabetes mellitus with hyperglycemia; I82.502 Chronic embolism and thrombosis of unspecified deep veins of left lower extremity; I10 Essential (primary) hypertension; F17.210 Nicotine dependence, cigarettes, uncomplicated; D47.3 Essential (hemorrhagic) thrombocythemia; D63.8 Anemia in other chronic diseases classified elsewhere; F17.200 Nicotine dependence, unspecified, uncomplicated; G62.9 Polyneuropathy, unspecified; Z79.4 Long term (current) use of insulin; R21 Rash and other nonspecific skin eruption; Z91.14 Patient's other noncompliance with medication regimen
CPT/HCPCS: 36415; 71045; 80048; 80053; 80202; 82962; 83605; 85025; 87040; 87081; 93971; 96361; 96365; 99285; J1815; J7030; S5561